=== PATIENT | male | born 1935 | race Caucasian/White ===

== ENCOUNTER → 2016-04-25 | Outpatient (REF) | payer OTHER ==
[~2016-04-25] MED LIST: ACET-654 PO; ALBU17IN INH; AMIO20TA FT; ASCO500T PO; ASPI325T PO; ATOR40TA PO; BREO1INH PO; CARA1TAB2 PO; CITA40TA4 PO; DOCU100C PO; FERR325T16 PO; FOLI1TAB2 PO; GLYB5TA PO; JANU100T PO; LISI10TA4 PO; METF500T PO; METO25TAB FT; PROTPAK PO; SPIR1CAP INH; TUMS500C PO; VITA100037 PO
[2016-04-25 19:10] LABS: MEAN CORPUSCULAR HEMOGLOBIN 31.5 pg (27.0-33.0); MEAN CORPUSCULAR VOLUME 92.6 fl (80.0-96.0); RED CELL DISTRIBUTION WIDTH 12.7 % (11.5-14.5); WHITE BLOOD COUNT 8.6 K/mm3 (4.0-10.0)
[2016-04-25 20:48] LABS: ALBUMIN 3.7 GM/DL (3.2-5.2); ALBUMIN/GLOBULIN RATIO 1.19 (1.00-1.93); ALKALINE PHOSPHATASE 89 U/L (45-117); ALT/SGPT 45 U/L (12-78); ANION GAP 6 MEQ/L (8-16); AST/SGOT 15 U/L (15-37); BILIRUBIN,TOTAL 0.5 MG/DL (0.2-1.0); BLOOD UREA NITROGEN 23 MG/DL (7-18); CALCIUM LEVEL 9.3 MG/DL (8.8-10.2); CARBON DIOXIDE LEVEL 32 MEQ/L (21-32); CHLORIDE LEVEL 105 MEQ/L (98-107); CREATININE FOR GFR 1.19 MG/DL (0.70-1.30); GLOMERULAR FILTRATION RATE > 60.0 (>42); GLUCOSE, FASTING 213 MG/DL (83-110); POTASSIUM SERUM 5.1 MEQ/L (3.5-5.1); SODIUM LEVEL 143 MEQ/L (136-145); TOTAL PROTEIN 6.8 GM/DL (6.4-8.2)
== END ==
LOC: M SFHCADAM 15:12
PROVIDERS: ATTEND Physician Assistant
DX: J44.9 Chronic obstructive pulmonary disease, unspecified (principal); E11.9 Type 2 diabetes mellitus without complications; Z23 Encounter for immunization
CPT/HCPCS: 80053; 83036; 85027; 90662; G0008; G0463

== ENCOUNTER → 2016-11-01 | Outpatient (REF) | payer OTHER ==
[~2016-11-01] MED LIST changes: -ACET-654 PO; +ACET1TAB17 PO; -ATOR40TA PO; +ATOR40TA75 PO; -CARA1TAB2 PO; +CARA1TAB6 PO; -DOCU100C PO; +DOCU100C16 PO; -FOLI1TAB2 PO; +FOLI1TAB4 PO; -METF500T PO; +METF500T13 PO; -VITA100037 PO; +VITA100067 PO
[2016-11-01 21:13] LABS: ALBUMIN 3.6 GM/DL (3.2-5.2); ALBUMIN/GLOBULIN RATIO 1.16 (1.00-1.93); ALKALINE PHOSPHATASE 83 U/L (45-117); ALT/SGPT 29 U/L (12-78); ANION GAP 8 MEQ/L (8-16); AST/SGOT 15 U/L (15-37); BILIRUBIN,TOTAL 0.6 MG/DL (0.2-1.0); BLOOD UREA NITROGEN 18 MG/DL (7-18); CALCIUM LEVEL 8.9 MG/DL (8.8-10.2); CARBON DIOXIDE LEVEL 28 MEQ/L (21-32); CHLORIDE LEVEL 103 MEQ/L (98-107); CREATININE FOR GFR 1.02 MG/DL (0.70-1.30); GLOMERULAR FILTRATION RATE > 60.0 (>35); GLUCOSE, FASTING 159 MG/DL (83-110); POTASSIUM SERUM 4.5 MEQ/L (3.5-5.1); SODIUM LEVEL 139 MEQ/L (136-145); TOTAL PROTEIN 6.7 GM/DL (6.4-8.2)
== END ==
LOC: M SFHCADAM 14:51
PROVIDERS: ATTEND Physician Assistant
DX: E11.9 Type 2 diabetes mellitus without complications (principal); I25.10 Atherosclerotic heart disease of native coronary artery without angina pectoris
CPT/HCPCS: 80053; 83036; G0463

== ENCOUNTER → 2017-02-28 | Outpatient (REF) | payer OTHER ==
[2017-02-28 19:58] LABS: MEAN CORPUSCULAR HEMOGLOBIN 31.1 pg (27.0-33.0); MEAN CORPUSCULAR VOLUME 94.3 fl (80.0-96.0); PLATELET COUNT, AUTOMATED 208 10^3/uL (150-450); RED CELL DISTRIBUTION WIDTH 13.1 % (11.5-14.5); WHITE BLOOD COUNT 10.8 10^3/uL (4.0-10.0)
[2017-02-28 20:23] LABS: ALBUMIN 3.7 GM/DL (3.2-5.2); ALBUMIN/GLOBULIN RATIO 1.06 (1.00-1.93); ALKALINE PHOSPHATASE 84 U/L (45-117); ALT/SGPT 36 U/L (12-78); ANION GAP 7 MEQ/L (8-16); AST/SGOT 17 U/L (7-37); BILIRUBIN,TOTAL 0.7 MG/DL (0.2-1.0); BLOOD UREA NITROGEN 18 MG/DL (7-18); CALCIUM LEVEL 9.3 MG/DL (8.8-10.2); CARBON DIOXIDE LEVEL 30 MEQ/L (21-32); CHLORIDE LEVEL 104 MEQ/L (98-107); CREATININE FOR GFR 1.16 MG/DL (0.70-1.30); GLOMERULAR FILTRATION RATE > 60.0 (>35); GLUCOSE, FASTING 163 MG/DL (83-110); POTASSIUM SERUM 5.1 MEQ/L (3.5-5.1); SODIUM LEVEL 141 MEQ/L (136-145); TOTAL PROTEIN 7.2 GM/DL (6.4-8.2)
== END ==
LOC: M SFHCADAM 16:35
PROVIDERS: ATTEND Physician Assistant
DX: E11.9 Type 2 diabetes mellitus without complications (principal); J44.9 Chronic obstructive pulmonary disease, unspecified
CPT/HCPCS: 80053; 83036; 85027; 90662; G0008

== ENCOUNTER → 2018-02-18 | Outpatient (REF) | payer OTHER ==
[2018-02-18 15:31] LABS: HEMATOCRIT 52.5 % (42.0-52.0); HEMOGLOBIN 17.3 g/dl (13.5-17.5); MEAN CORPUSCULAR HEMOGLOBIN 30.6 pg (27.0-33.0); MEAN CORPUSCULAR VOLUME 92.8 fl (80.0-96.0); PLATELET COUNT, AUTOMATED 204 10^3/uL (150-450); RED BLOOD COUNT 5.66 10^6/uL (4.30-6.10); RED CELL DISTRIBUTION WIDTH 13.4 % (11.5-14.5); WHITE BLOOD COUNT 9.9 10^3/uL (4.0-10.0)
[2018-02-18 15:47] LABS: ESTIMATED AVERAGE GLUCOSE 197 MG/DL (60-110); HEMOGLOBIN A1c 8.5 %
[2018-02-18 15:51] LABS: CHOLESTEROL LEVEL 101 MG/DL (<200); CHOLESTEROL RISK RATIO 2.148 (<5); FREE T4 1.11 NG/DL (0.76-1.46); HDL CHOLESTEROL 47 MG/DL (>40); LDL CHOLESTEROL 34 MG/DL (<100); NON-HDL-C 54 MG/DL; TRIGLYCERIDES LEVEL 102 MG/DL (<150)
[2018-02-18 15:52] LABS: VITAMIN B12 LEVEL 982 PG/ML (247-911)
[2018-02-18 15:53] LABS: FOLATE 11.7 NG/ML (>5.4)
== END ==
LOC: M SFHCADAM 13:30
DX: I25.10 Atherosclerotic heart disease of native coronary artery without angina pectoris (principal); F03.90 Unspecified dementia, unspecified severity, without behavioral disturbance, psychotic disturbance, mood disturbance, and anxiety; R41.3 Other amnesia; E11.9 Type 2 diabetes mellitus without complications; E78.5 Hyperlipidemia, unspecified; Z23 Encounter for immunization
CPT/HCPCS: 82746

== ENCOUNTER → 2018-10-02 | Outpatient (REF) | payer MEDICARE ==
[~2018-10-02] MED LIST changes: -ACET1TAB17 PO; +ACET1TAB55 PO; +AMIO200T22 FT; -AMIO20TA FT; +ASPI-1 PO; -ASPI325T PO; +FOLI1TAB11 PO; -FOLI1TAB4 PO; +GLYB-147 PO; -GLYB5TA PO; +METO1TAB63 FT; -METO25TAB FT
[2018-10-02 19:25] LABS: ALBUMIN 3.4 GM/DL (3.2-5.2); ALT/SGPT 33 U/L (12-78); BILIRUBIN,TOTAL 0.9 MG/DL (0.2-1.0); BLOOD UREA NITROGEN 27 MG/DL (7-18); CARBON DIOXIDE LEVEL 29 MEQ/L (21-32); CHLORIDE LEVEL 102 MEQ/L (98-107); CREATININE FOR GFR 1.22 MG/DL (0.70-1.30); GLOMERULAR FILTRATION RATE > 60.0 (>35); GLUCOSE, FASTING 284 MG/DL (70-100); POTASSIUM SERUM 4.7 MEQ/L (3.5-5.1); SODIUM LEVEL 139 MEQ/L (136-145); TOTAL PROTEIN 6.8 GM/DL (6.4-8.2)
[2018-10-02 19:26] LABS: HEMATOCRIT 46.7 % (42.0-52.0); HEMOGLOBIN 15.7 g/dl (13.5-17.5); MEAN CORPUSCULAR HEMOGLOBIN 30.8 pg (27.0-33.0); MEAN CORPUSCULAR HGB CONC 33.6 g/dl (32.0-36.5); MEAN CORPUSCULAR VOLUME 91.7 fl (80.0-96.0); PLATELET COUNT, AUTOMATED 194 10^3/uL (150-450); RED BLOOD COUNT 5.09 10^6/uL (4.30-6.10); WHITE BLOOD COUNT 10.9 10^3/uL (4.0-10.0)
[2018-10-02 19:59] LABS: HEMOGLOBIN A1c 11.8 %
== END ==
LOC: M SFHCADAM 14:25
PROVIDERS: ATTEND Physician Assistant
DX: E11.9 Type 2 diabetes mellitus without complications (principal); I25.10 Atherosclerotic heart disease of native coronary artery without angina pectoris; J44.9 Chronic obstructive pulmonary disease, unspecified; E78.49 Other hyperlipidemia
CPT/HCPCS: 80053; 83036; 85027; G0463

== ENCOUNTER 2019-10-01 21:10 | Emergency (ER) | payer MEDICARE ==
[~2019-10-01] VITALS: Ht 185.4 cm; Wt 82.3 kg
[2019-10-01] MEDS ORDERED: NS 500 ML IV ONE (21:45)
[2019-10-01 22:06] LABS: BASO % 0.3 % (0.0-1.0); EOS # 0.1 10^3/uL (0.0-0.5); EOS % 1.1 % (0.0-3.0); HEMATOCRIT 45.4 % (42.0-52.0); HEMOGLOBIN 15.4 g/dl (13.5-17.5); LYMPH % 32.2 % (24.0-44.0); MEAN CORPUSCULAR HGB CONC 33.9 g/dl (32.0-36.5); MEAN CORPUSCULAR VOLUME 91.5 fl (80.0-96.0); MONO # 0.9 10^3/uL (0.0-0.8); MONO % 10.1 % (0.0-5.0); NEUTROPHILS # 5.2 10^3/uL (1.5-8.5); NEUTROPHILS % 55.9 % (36.0-66.0); PLATELET COUNT, AUTOMATED 195 10^3/uL (150-450); RED BLOOD COUNT 4.96 10^6/uL (4.30-6.10); WHITE BLOOD COUNT 9.3 10^3/uL (4.0-10.0)
--- NOTE | 2019-10-01 22:19 | REPVR ---
PROCEDURE INFORMATION: Exam: CT Head Without Contrast Exam date and time: 10/01/2019 10:00 PM Age: 84 years old Clinical indication: Injury or trauma; Fall; Initial encounter; Blunt trauma (contusions or hematomas); Consciousness not specified; Additional info: [place] TECHNIQUE: Imaging protocol: Computed tomography of the head without contrast. Radiation optimization: All CT scans at this facility use at least one of these dose optimization techniques: automated exposure control; mA and/or kV adjustment per patient size (includes targeted exams where dose is matched to clinical indication); or iterative reconstruction. COMPARISON: MRI-Brain without Contrast 2015-05-30 10:44 FINDINGS: Brain: Diffuse moderate cerebral age related volume loss. Moderate patchy low attenuation in the white matter compatible with moderate chronic small vessel ischemic disease. No midline shift, mass, fluid collection, or evidence of hemorrhage. Ventricles: Ventricular enlargement proportional to volume loss. Bones/joints: Unremarkable. No acute fracture. Sinuses: Visualized sinuses are unremarkable. No fluid levels. Mastoid air cells: Visualized mastoid air cells are well aerated. Soft tissues: Unremarkable. IMPRESSION: Moderate involutional changes, no acute intracranial abnormality. Electronically signed by: Taz Reid On 10/01/2019 22:19:06 PM
[2019-10-01 22:28] LABS: CALCIUM LEVEL 8.7 MG/DL (8.8-10.2); CREATININE FOR GFR 1.24 MG/DL (0.70-1.30); GLOMERULAR FILTRATION RATE 59.3 (>35); POTASSIUM SERUM 4.5 MEQ/L (3.5-5.1)
[2019-10-01] MEDS ORDERED: HumuLIN R (REGULAR) INSULIN (NovoLIN R) **100U/ML** PER UNIT IV ONE (22:45)
[2019-10-02 00:15] VITALS: BP 130/64
[2019-10-02] MEDS ORDERED: HumuLIN R (REGULAR) INSULIN (NovoLIN R) **100U/ML** PER UNIT IV ONE (00:45)
--- NOTE | 2019-10-02 06:10 | REP ---
Clinical: Cough . Comparison: 11/24/2014 . Findings: The mediastinum and cardiac silhouette are stable and within normal limits for portable technique. Evidence of prior sternotomy and CABG. The lung perez are clear without acute consolidation, effusion, or pneumothorax. Skeletal structures are intact. Impression: No acute cardiopulmonary process appreciated. Electronically Signed by Nicolas Peralta MD 10/02/2019 06:01 A
[2019-10-02] MEDS ORDERED: D31000TA2 PO (22:13)
[2019-10-02] MEDS ORDERED: ECOT325T5 PO (22:13)
[2019-10-02] MEDS ORDERED: PROT1TAB2 PO (22:13)
[2020-02-18] MEDS ORDERED: INSUHUMDS SC (15:50)
[2020-02-18] MEDS ORDERED: QUET1TAB7 PO (15:50)
[2020-02-18] MEDS ORDERED: CITA10TA5 PO (15:58)
[2020-02-18] MEDS ORDERED: ASPI81CH33 PO (15:58)
[2020-02-18] MEDS ORDERED: VITMTA PO (16:07)
[2020-02-18] MEDS ORDERED: K-TA10TA PO (16:07)
[2020-02-18] MEDS ORDERED: JUVEPOW4 PO (16:07)
[2020-02-18] MEDS ORDERED: FLOM0.4C39 PO (16:09)
[2020-02-18] MEDS ORDERED: REME15TA PO (16:14)
[2020-02-18] MEDS ORDERED: MOM30SS PO (16:17)
[2020-02-18] MEDS ORDERED: BISA10SU27 PR (16:17)
[2020-02-18] MEDS ORDERED: FLEEENE12 PR (16:17)
== END 2019-10-02 01:55 | disposition home or self-care (01) ==
LOC: M ED 21:10
DX: E11.65 Type 2 diabetes mellitus with hyperglycemia (principal); E86.0 Dehydration; F03.90 Unspecified dementia, unspecified severity, without behavioral disturbance, psychotic disturbance, mood disturbance, and anxiety; I10 Essential (primary) hypertension; J44.9 Chronic obstructive pulmonary disease, unspecified; D64.9 Anemia, unspecified; E78.5 Hyperlipidemia, unspecified; I25.10 Atherosclerotic heart disease of native coronary artery without angina pectoris; Z79.899 Other long term (current) drug therapy; Z79.84 Long term (current) use of oral hypoglycemic drugs; Z79.82 Long term (current) use of aspirin; F17.210 Nicotine dependence, cigarettes, uncomplicated

== ENCOUNTER 2019-10-02 18:25 | Observation (INO) | payer MEDICARE ==
[~2019-10-02] VITALS: Ht 182.9 cm; Wt 73.4 kg
[2019-10-02 19:10] LABS: BASO % 0.2 % (0.0-1.0); EOS % 0.1 % (0.0-3.0); HEMATOCRIT 43.9 % (42.0-52.0); HEMOGLOBIN 14.9 g/dl (13.5-17.5); LYMPH # 1.5 10^3/uL (1.5-5.0); LYMPH % 9.2 % (24.0-44.0); MEAN CORPUSCULAR HEMOGLOBIN 30.7 pg (27.0-33.0); MEAN CORPUSCULAR HGB CONC 33.9 g/dl (32.0-36.5); MEAN CORPUSCULAR VOLUME 90.5 fl (80.0-96.0); MONO # 1.5 10^3/uL (0.0-0.8); MONO % 9.2 % (0.0-5.0); NEUTROPHILS % 80.9 % (36.0-66.0); PLATELET COUNT, AUTOMATED 172 10^3/uL (150-450); RED BLOOD COUNT 4.85 10^6/uL (4.30-6.10); WHITE BLOOD COUNT 16.1 10^3/uL (4.0-10.0)
[2019-10-02 19:21] LABS: INR 1.15; PROTHROMBIN TIME 14.4 SECONDS (11.8-14.0)
[2019-10-02 19:22] LABS: PARTIAL THROMBOPLASTIN TIME 31.6 SECONDS (25.0-38.4)
[2019-10-02 19:35] LABS: BILIRUBIN,DIRECT 0.3 MG/DL (0.0-0.2); BILIRUBIN,TOTAL 0.9 MG/DL (0.2-1.0)
[2019-10-02] MEDS: NS 1,000 ML IV SCH (19:39)
--- NOTE | 2019-10-02 19:40 | REP ---
Portable chest x-ray: Single view. History: Cough. Comparison chest x-ray: October 01, 2019. Findings: Prior median sternotomy wires seen. Monitoring electrodes are noted. Heart size is borderline unchanged. The patient is rotated somewhat to the right. The lungs are symmetrically aerated and no infiltrate is seen. The pleural angles are sharp. Pulmonary vasculature is not increased. Impression: Prior sternotomy. Borderline heart size. Otherwise no acute disease. Electronically Signed by Bruno Vasquez MD 10/02/2019 07:30 P
[2019-10-02] MEDS ORDERED: ATORVASTATIN 20 MG TAB PO SCH (21:00)
[2019-10-02] MEDS ORDERED: ECOT325T5 PO (22:13)
[2019-10-02] MEDS ORDERED: VITAD1000T PO (22:13)
[2019-10-02] MEDS ORDERED: PROT1TAB2 PO (22:13)
[2019-10-03] MEDS ORDERED: GLUCAGON INJ 1MG VIAL SC PRN (01:00)
[2019-10-03] MEDS ORDERED: DEXTROSE 50% 50 ML SYRINGE IV PRN (01:00)
[2019-10-03] MEDS ORDERED: ACETAMINOPHEN 325 MG TAB PO PRN (01:00)
[2019-10-03] MEDS ORDERED: GLUCOSE 4GM CHEW TABLET PO PRN (01:00)
[2019-10-03] MEDS ORDERED: DOCUSATE SODIUM 100 MG CAP PO PRN (01:00)
--- NOTE | 2019-10-03 01:49 | HPEPDOC ---
[facility] Medical History & Physical Date of Admission Oct 03, 2019 Date of Service: Oct 03, 2019 Primary Care Physician: IRAIS HUGHES PA-C Attending Physician: NAHOMI DUARTE DO History and Physical CHIEF COMPLAINT: GI bleed HISTORY OF PRESENT ILLNESS: Per ED records, apparently the patient was brought in after noticing "dark red stool today after BM. Denies pain. BP was 76 systolic but increased to 116 after 250 mL. Patient at baseline mentally and hard of hearing. Patient has dementia." Also, he was brought in yesterday to the emergency department for evaluation of incoordination, and apparently he has "not been himself for the past few weeks". CT scan of the time was unremarkable. Patient has a documented history of dementia, he is able to tell me his name, but otherwise does not provide any other useful information. Apparently, per ED staff the patient has been suffering from weakness and has had multiple falls. No family was available at that time that I came to see and evaluate the patient. The remainder of his medical record was found in [facility], his last visit being almost precisely one year ago on 10/02/2018 with his PCP MUMTAZ Pardo ALLERGIES: NSAIDs-GI bleed 11/27 Briel that-bed taste in his mouth Spurrier HandiHaler-bed taste in his mouth CODE STATUS: DNR/and trial of intubation PAST MEDICAL HISTORY: Diabetes mellitus type 2 Hypertension Hyperlipidemia Tobacco abuse-60+ pack years, quit in 2014 CAD status post CABG X2 2014 WEATHERS to LAD, SVG to obtuse marginal artery A. 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 Otherwise he really does not respond to questioning. He does not appear to be in any acute distress. He does not know where he is, or why he is here, or how he got here. HEENT: Head normocephalic atraumatic, conjunctiva are pink, sclera are nonicteric, buccal mucosa is pink and moist with no lesions in the oropharynx. He is somewhat hard of hearing. Respiratory: Clear to auscultation bilaterally with no wheezes, rales, or rhonchi. Cardiovascular: Regular rate and rhythm, with no rubs, gallops, or murmur. Abdomen: Soft, nontender, nondistended, no hepatosplenomegaly appreciated. Bowel sounds present. Extremities: 2+ pulses in the radial and dorsalis pedis bilaterally. No evidence of clubbing or cyanosis. ELECTROCARDIOGRAM: Performed in the ED, unremarkable IMAGING: CT of the head without contrast performed 10/01/2019 shows moderate involutional changes, no acute intracranial abnormality 2 chest x-rays performed on 10/02/19 - both unremarkable ASSESSMENT: Suspicion for lower GI bleed PLAN: Vital signs are stable. H/H stable. Has not had another BM yet. Patient does appear to be at baseline at this time. Admit to [facility] for observation. Clear liquid diet. Hold aspirin. Otherwise continue the remainder of his home medications. Vital Signs Vital Signs Date Time Temp Pulse Resp B/P (MAP) Pulse Ox O2 Delivery O2 Flow Rate FiO2 10/03/19 01:15 61 152/67 (95) 99 10/02/19 18:50 Room Air 10/02/19 18:36 99.6 18 Laboratory Data Labs 24H Laboratory Tests 2 10/02/19 18:57: Immature Granulocyte % (Auto) 0.4, Neutrophils (%) (Auto) 80.9H, Lymphocytes (%) (Auto) 9.2L, Monocytes (%) (Auto) 9.2H, Eosinophils (%) (Auto) 0.1, Basophils (%) (Auto) 0.2, Neutrophils # (Auto) 13.0H, Lymphocytes # (Auto) 1.5, Monocytes # (Auto) 1.5H, Eosinophils # (Auto) 0.0, Basophils # (Auto) 0.0, Nucleated Red Blood Cells % (auto) 0.0, Prothrombin Time 14.4H, Prothromb Time International Ratio 1.15, Activated Partial Thromboplast Time 31.6, Total Bilirubin 0.9, Direct Bilirubin 0.3H, Aspartate Amino Transf (AST/SGOT) 61H, Alanine Aminotrans ferase (ALT/SGPT) 78, Alkaline Phosphatase 97, Total Protein 6.0L, Albumin 3.0L, Albumin/Globulin Ratio 1.0, Lipase 105 10/02/19 19:36: POC Glucose (Misc Panel) 286H, POC Sodium (Misc Panel) 136, POC Potassium (Misc Panel) 4.1, POC Chloride (Misc Panel) 100, POC Total CO2 (Misc Panel) 21.0L, POC Blood Urea Nitrogen (Misc Panel 27H, POC Ionized Calcium (Misc Panel) 4.2L, POC Creatinine (Misc Panel) 0.9, POC Hematocrit (Misc Panel) 53.0H 10/02/19 21:13: Urine Color YELLOW, Urine Appearance CLEAR, Urine pH 5.0, Urine Specific [place] 1.025, Urine Protein NEGATIVE, Urine Glucose (UA) 3+H, Urine Ketones TRACEH, Urine Blood NEGATIVE, Urine Nitrite NEGATIVE, Urine Bilirubin NEGATIVE, Urine Urobilinogen 0.2, Urine Leukocyte Esterase NEGATIVE, Urine WBC (Auto) 0, Urine RBC (Auto) 0, Urine Hyaline Casts (Auto) 0, Urine Bacteria (Auto) NEGATIVE, Urine Squamous Epithelial Cells 0, Urine Sperm (Auto) CBC/BMP Laboratory Tests 10/02/19 18:57 Home Medications Scheduled Ascorbic Acid (Ascorbic Acid) 500 Mg Tab, 500 MG PO DAILY Aspirin (Ecotrin) 325 Mg Tablet.dr, 325 MG PO DAILY Atorvastatin Calcium (Atorvastatin Calcium) 40 Mg Tab, 40 MG PO QHS Cholecalciferol (Vitamin D3) (Vitamin D3) 1,000 Unit Tablet, 1,000 UNITS PO DAILY Citalopram Hydrobromide (Citalopram HBr) 40 Mg Tab, 40 MG PO DAILY Ferrous Gluconate (Ferrous Gluconate) 324 Mg Tab, 324 MG PO DAILY Lisinopril (Lisinopril) 10 Mg Tab, 10 MG PO DAILY Metformin HCl (Metformin HCl) 500 Mg Tab, 2,000 MG PO QPM with evening meal Pantoprazole Sodium (Protonix) 40 Mg Tablet.dr, 40 MG PO DAILY Sitagliptin Phosphate (Januvia) 100 Mg Tab, 100 MG PO DAILY Scheduled PRN Acetaminophen (Acetaminophen) 325 Mg Tab, 325 MG PO PRN PRN for PAIN Docusate Sodium (Docusate Sodium) 100 Mg Cap, 100 MG PO QPM PRN for CONSTIPATION Allergies Coded Allergies: No Known Allergies (Unverified , 11/22/14) A-FIB/CHADSVASC A-FIB History Current/History of A-Fib/PAF?: No NAHOMI DUARTE DO Oct 03, 2019 01:49
[2019-10-03 01:50] VITALS: BP 141/62
[2019-10-03 06:00] VITALS: BP 122/84
[2019-10-03 06:41] LABS: HEMATOCRIT 44.3 % (42.0-52.0); HEMOGLOBIN 15.1 g/dl (13.5-17.5); MEAN CORPUSCULAR HEMOGLOBIN 30.9 pg (27.0-33.0); MEAN CORPUSCULAR HGB CONC 34.1 g/dl (32.0-36.5); MEAN CORPUSCULAR VOLUME 90.8 fl (80.0-96.0); PLATELET COUNT, AUTOMATED 173 10^3/uL (150-450); RED BLOOD COUNT 4.88 10^6/uL (4.30-6.10)
[2019-10-03 06:48] LABS: INR 1.22; PROTHROMBIN TIME 15.1 SECONDS (11.8-14.0)
[2019-10-03 06:49] LABS: PARTIAL THROMBOPLASTIN TIME 33.9 SECONDS (25.0-38.4)
[2019-10-03 07:08] LABS: ALBUMIN 2.9 GM/DL (3.2-5.2); ALT/SGPT 64 U/L (12-78); BILIRUBIN,TOTAL 1.2 MG/DL (0.2-1.0); BLOOD UREA NITROGEN 19 MG/DL (7-18); CALCIUM LEVEL 8.3 MG/DL (8.8-10.2); CARBON DIOXIDE LEVEL 26 MEQ/L (21-32); CHLORIDE LEVEL 108 MEQ/L (98-107); CREATININE FOR GFR 0.95 MG/DL (0.70-1.30); GLOMERULAR FILTRATION RATE > 60.0 (>35); GLUCOSE, FASTING 225 MG/DL (70-100); MAGNESIUM LEVEL 1.8 MG/DL (1.8-2.4); POTASSIUM SERUM 4.2 MEQ/L (3.5-5.1); SODIUM LEVEL 141 MEQ/L (136-145); THYROID STIMULATING HORMONE 0.769 uIU/ML (0.358-3.740)
--- NOTE | 2019-10-03 08:10 | ECGEPIP ---
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
[2019-10-03] MEDS ORDERED: FERROUS GLUCONATE 324 MG TAB PO SCH (09:00)
[2019-10-03] MEDS ORDERED: lisinopriL 10 MG TAB PO SCH (09:00)
[2019-10-03] MEDS ORDERED: CitaloPRAM (CeleXA) 20 MG TAB PO SCH (09:00)
[2019-10-03] MEDS ORDERED: ASPIRIN ENTERIC 325 MG TAB PO SCH (09:00)
[2019-10-03] MEDS ORDERED: VITAMIN D 1,000 INTERNATIONAL UNITS TABLET PO SCH (09:00)
[2019-10-03] MEDS ORDERED: PANTOPRAZOLE 40MG TAB (PROTONIX) PO SCH (09:00)
[2019-10-03] MEDS: NS 1,000 ML IV SCH (10:21)
[2019-10-03] MEDS: HumaLOG INSULIN (NovoLOG) PER UNIT SC SCH ×2 (10:21→13:11)
[2019-10-03 10:22] VITALS: BP 122/84
[2019-10-03 10:57] LABS: HEMATOCRIT 44.1 % (42.0-52.0); HEMOGLOBIN 15.2 g/dl (13.5-17.5)
--- NOTE | 2019-10-03 12:09 | DS.PDOC ---
Discharge Summary General Date of Admission Oct 02, 2019 at 18:26 Date of Discharge 10/03/2019 Discharge Summary PROCEDURES PERFORMED DURING STAY: [None]. ADMITTING DIAGNOSES / DISCHARGE DIAGNOSES: Suspected blood in stool / urine, no anemia, no transfusions Dementia, CAD s/p CABG (2014) A. fib HTN DLP Hx of CVA (2015) Tobacco abuse COPD Hx of Duodenal Ulcers DVT prophylaxis COMPLICATIONS/CHIEF COMPLAINT: Suspected bleed GI / Urine HISTORY OF PRESENT ILLNESS / HOSPITAL COURSE: Patient is an 84-year-old male with a PMHx of Dementia, CAD s/p CABG (2014), A. fib, HTN, DLP, Hx of CVA (2016), Tobacco abuse, COPD, Hx of Duodenal Ulcers who was brought to the hospital by Ambulance because of reported dark stools. On arrival patient was found to have low blood pressure and was given IV fluid hydration. Upon arrival, patient's hemoglobin was noted to 14.9. Patient was admitted to hospitalist service under observation status. Patient's hemoglobin was trended and had remained stable. He remained hemodynamically stable throughout the remainder of the hospitalization. Patient's urine analysis did not reveal any evidence of bleeding, no evidence of gross or microhematuria. Physical therapy has worked with patient and has been cleared for discharge home. I discussed the case with patient's daughter in-law. Patient has been advised to follow-up with his primary care provider within the next 7 days. DISCHARGE MEDICATIONS: Please see below. ALLERGIES: Please see below. PHYSICAL EXAMINATION ON DISCHARGE: Vitals (See below) General: Lying in bed, no acute distress, comfortable, Awake / Alert, Oriented to Person HEENT: NC, AT CVS: +S1S2 Lungs: Fair air entry b/l, no appreciable wheezing / rhonchi / rales Abdomen: Soft, non-distended, non-tender Extremities: - Edema, - Calf tenderness LABORATORY DATA: Please see below. ACTIVITY: [As tolerated]. DISCHARGE PLAN: Follow up with Dr. Patrick within 7 days Remain compliant with treatment plan and medications Return to the ER if you experience any problems DISPOSITION: Home with services DISCHARGE CONDITION: [Stable]. TIME SPENT ON DISCHARGE: 20 minutes. Vital Signs/I&Os Vital Signs Date Time Temp Pulse Resp B/P (MAP) Pulse Ox O2 Delivery O2 Flow Rate FiO2 10/03/19 10:22 122/84 10/03/19 06:00 98.2 51 16 94 Room Air I&O- Last 24 Hours up to 6 AM 10/03/19 06:00 Intake Total 950 ml Output Total 725 ml Balance 225 ml Laboratory Data Labs 24H Laboratory Tests 2 10/02/19 18:57: Immature Granulocyte % (Auto) 0.4, Neutrophils (%) (Auto) 80.9H, Lymphocytes (%) (Auto) 9.2L, Monocytes (%) (Auto) 9.2H, Eosinophils (%) (Auto) 0.1, Basophils (%) (Auto) 0.2, Neutrophils # (Auto) 13.0H, Lymphocytes # (Auto) 1.5, Monocytes # (Auto) 1.5H, Eosinophils # (Auto) 0.0, Basophils # (Auto) 0.0, Nucleated Red Blood Cells % (auto) 0.0, Prothrombin Time 14.4H, Prothromb Time International Ratio 1.15, Activated Partial Thromboplast Time 31.6, Total Bilirubin 0.9, Direct Bilirubin 0.3H, Aspartate Amino Transf (AST/SGOT) 61H, Alanine Aminotransferase (ALT/SGPT) 78, Alkaline Phosphatase 97, Total Protein 6.0L, Albumin 3.0L, Albumin/Globulin Ratio 1.0, Lipase 105 10/02/19 19:36: POC Glucose (Misc Panel) 286H, POC Sodium (Misc Panel) 136, POC Potassium (Misc Panel) 4.1, POC Chloride (Misc Panel) 100, POC Total CO2 (Misc Panel) 21.0L, POC Blood Urea Nitrogen (Misc Panel 27H, POC Ionized Calcium (Misc Panel) 4.2L, POC Creatinine (Misc Panel) 0.9, POC Hematocrit (Misc Panel) 53.0H 10/02/19 21:13: Urine Color YELLOW, Urine Appearance CLEAR, Urine pH 5.0, Urine Specific [place] 1.025, Urine Protein NEGATIVE, Urine Glucose (UA) 3+H, Urine Ketones TRACEH, Urine Blood NEGATIVE, Urine Nitrite NEGATIVE, Urine Bilirubin NEGATIVE, Urine Urobilinogen 0.2, Urine Leukocyte Esterase NEGATIVE, Urine WBC (Auto) 0, Urine RBC (Auto) 0, Urine Hyaline Casts (Auto) 0, Urine Bacteria (Auto) NEGATIVE, Urine Squamous Epithelial Cells 0, Urine Sperm (Auto) 10/03/19 06:18: Nucleated Red Blood Cells % (auto) 0.0, Prothrombin Time 15.1H, Prothromb Time International Ratio 1.22, Activated Partial Thromboplast Time 33.9, Total Bilirubin 1.2H, Aspartate Amino Transf (AST/SGOT) 30, Alanine Aminotransferase (ALT/SGPT) 64, Alkaline Phosphatase 97, Total Protein 6.0L, Albumin 2.9L, Albumin/Globulin Ratio 0.9, Anion Gap 7L, Glomerular Filtration Rate > 60.0, Calcium Level 8.3L, Magnesium Level 1.8, Ammonia < 10, Thyroid Stimulating Hormone (TSH) 0.769 CBC/BMP Laboratory Tests 10/02/19 18:57 10/03/19 06:18 10/03/19 10:42 Discharge Medications Scheduled Ascorbic Acid (Ascorbic Acid) 500 Mg Tab, 500 MG PO DAILY, (Reported) Aspirin (Ecotrin) 325 Mg Tablet.dr, 325 MG PO DAILY, (Reported) Atorvastatin Calcium (Atorvastatin Calcium) 40 Mg Tab, 40 MG PO QHS, (Reported) Cholecalciferol (Vitamin D3) (Vitamin D3) 1,000 Unit Tablet, 1,000 UNITS PO DAILY, (Reported) Citalopram Hydrobromide (Citalopram HBr) 40 Mg Tab, 40 MG PO DAILY, (Reported) Ferrous Gluconate (Ferrous Gluconate) 324 Mg Tab, 324 MG PO DAILY, (Reported) Lisinopril (Lisinopril) 10 Mg Tab, 10 MG PO DAILY, (Reported) Metformin HCl (Metformin HCl) 500 Mg Tab, 2,000 MG PO QPM, (Reported) with evening meal Pantoprazole Sodium (Protonix) 40 Mg Tablet.dr, 40 MG PO DAILY, (Reported) Sitagliptin Phosphate (Januvia) 100 Mg Tab, 100 MG PO DAILY, (Reported) Scheduled PRN Acetaminophen (Acetaminophen) 325 Mg Tab, 325 MG PO PRN PRN for PAIN, (Reported) Docusate Sodium (Docusate Sodium) 100 Mg Cap, 100 MG PO QPM PRN for CONS TIPATION, (Reported) Allergies Coded Allergies: No Known Allergies (Unverified , 11/22/14) DWAIN JUARES MD Oct 03, 2019 12:09
[2019-10-03 14:00] VITALS: BP 139/64
[2019-10-03] MEDS ORDERED: HumaLOG INSULIN (NovoLOG) PER UNIT SC SCH (21:00)
== END 2019-10-03 17:46 | disposition home or self-care (01) ==
LOC: M ED 18:25 → EDBD 18:25 → M ED INP 18:26 → ENRESERV 10-03 01:21 → M MSPAV 10-03 01:41
PROVIDERS: ADMIT Neuromusculoskeletal Medicine & OMM; ATTEND Internal Medicine
DX: K62.5 Hemorrhage of anus and rectum (principal); F03.90 Unspecified dementia, unspecified severity, without behavioral disturbance, psychotic disturbance, mood disturbance, and anxiety; I25.10 Atherosclerotic heart disease of native coronary artery without angina pectoris; Z95.1 Presence of aortocoronary bypass graft; I48.91 Unspecified atrial fibrillation; I11.9 Hypertensive heart disease without heart failure; Z86.73 Personal history of transient ischemic attack (TIA), and cerebral infarction without residual deficits; J44.9 Chronic obstructive pulmonary disease, unspecified; Z87.19 Personal history of other diseases of the digestive system; E11.65 Type 2 diabetes mellitus with hyperglycemia; I95.9 Hypotension, unspecified; R53.1 Weakness; Z91.81 History of falling; E86.0 Dehydration; E78.5 Hyperlipidemia, unspecified; I67.82 Cerebral ischemia; H91.93 Unspecified hearing loss, bilateral; Z87.891 Personal history of nicotine dependence; Z79.899 Other long term (current) drug therapy; Z79.82 Long term (current) use of aspirin; Z79.84 Long term (current) use of oral hypoglycemic drugs
CPT/HCPCS: 36415; 71045; 80047; 80053; 80076; 81001; 82140; 83690; 83735; 84443; 85014; 85018; 85025; 85027; 85610; 85730; 86850; 86900; 86901; 93005; 93041; 96360; 96361; 96372; 97161; 99285; G0378

== ENCOUNTER → 2019-10-07 | Outpatient (REF) | payer MEDICARE ==
[~2019-10-07] MED LIST changes: +ECOT325T5 PO; +PROT1TAB2 PO; +VITAD1000T PO
[2019-10-07 17:23] LABS: BLOOD UREA NITROGEN 14 MG/DL (7-18); CALCIUM LEVEL 9.1 MG/DL (8.8-10.2); CARBON DIOXIDE LEVEL 28 MEQ/L (21-32); CHLORIDE LEVEL 106 MEQ/L (98-107); CREATININE FOR GFR 0.98 MG/DL (0.70-1.30); GLOMERULAR FILTRATION RATE > 60.0 (>35); GLUCOSE, FASTING 217 MG/DL (70-100); POTASSIUM SERUM 4.1 MEQ/L (3.5-5.1); SODIUM LEVEL 139 MEQ/L (136-145)
[2019-10-07 17:42] LABS: HEMOGLOBIN A1c 11.7 %
== END ==
LOC: M SFHCADAM 13:53
PROVIDERS: ATTEND Physician Assistant
DX: E11.65 Type 2 diabetes mellitus with hyperglycemia (principal); I11.0 Hypertensive heart disease with heart failure

== ENCOUNTER 2019-12-02 19:19 | Inpatient (IN) | payer MEDICARE ==
[~2019-12-02] VITALS: Ht 180.3 cm; Wt 77.7 kg
[~2019-12-02 19:19] MED LIST changes: +D31000TA2 PO; -VITAD1000T PO
--- NOTE | 2019-12-02 20:44 | REPVR ---
PROCEDURE INFORMATION: Exam: CT Head Without Contrast Exam date and time: 12/02/2019 8:40 PM Age: 84 years old Clinical indication: Injury or trauma; Fall; Initial encounter; Blunt trauma (contusions or hematomas) TECHNIQUE: Imaging protocol: Computed tomography of the head without contrast. Radiation optimization: All CT scans at this facility use at least one of these dose optimization techniques: automated exposure control; mA and/or kV adjustment per patient size (includes targeted exams where dose is matched to clinical indication); or iterative reconstruction. COMPARISON: CT Head without contrast 10/01/2019 9:51 PM FINDINGS: Brain: There is moderate age related parenchymal volume loss. White matter changes are demonstrated in the subcortical, centrum semiovale and periventricular white matter consistent with age related small vessel white matter angiopathic gliosis. Bilateral basal ganglia calcifications. Mild diffuse cerebellar atrophy. Ventricles: The degree of ventricular dilatation is normal for age and/or degree of atrophy present. Bones/joints: Unremarkable. No acute fracture. Sinuses: Visualized sinuses are unremarkable. No fluid levels. Mastoid air cells: Visualized mastoid air cells are well aerated. Vasculature: Atherosclerotic calcifications are demonstrated in the intracranial carotid arteries bilaterally as well as in the vertebral basilar system. Soft tissues: Unremarkable. IMPRESSION: 1. There is moderate age related parenchymal volume loss. White matter changes are demonstrated in the subcortical, centrum semiovale and periventricular white matter consistent with age related small vessel white matter angiopathic gliosis. 2. The degree of ventricular dilatation is normal for age and/or degree of atrophy present. 3. No acute intracranial findings. Electronically signed by: Johnny Byrne On 12/02/2019 20:45:06 PM
--- NOTE | 2019-12-02 20:52 | REPVR ---
PROCEDURE INFORMATION: Exam: CT Cervical Spine Without Contrast Exam date and time: 12/02/2019 8:40 PM Age: 84 years old Clinical indication: Injury or trauma; Fall; Initial encounter; Blunt trauma TECHNIQUE: Imaging protocol: Computed tomography images of the cervical spine without contrast. Radiation optimization: All CT scans at this facility use at least one of these dose optimization techniques: automated exposure control; mA and/or kV adjustment per patient size (includes targeted exams where dose is matched to clinical indication); or iterative reconstruction. COMPARISON: No relevant prior studies available. FINDINGS: Vertebrae: Moderate anterolisthesis of C7 on T1 may be a chronic finding although clinical correlation to exclude acute ligamentous injury suggested. Multilevel facet joint arthropathy. Discs/Spinal canal/Neural foramina: Disc space narrowing from C3-C4 through C6-C7. There are degenerative changes demonstrated in the atlantoaxial joint at C1-C2 with osteophytes and joint space narrowing. The transverse ligament is thickened. Moderate to severe bilateral foraminal stenosis at C3, C4, C5, C6 secondary to uncinate joint hypertrophic changes. Disc osteophyte complexes from C3-C4 through C6-C7 result in varying degrees of effacement of the ventral subarachnoid space with moderate cord impingement secondary to a prominent osteophyte at C5-C6 and C6-C7. Soft tissues: See "Discs/Spinal canal/Neural foramina" finding. Bilateral atherosclerotic changes in the carotid arteries. Lungs: Lung apices are normal. IMPRESSION: 1. Moderate anterolisthesis of C7 on T1 may be a chronic finding although clinical correlation to exclude acute ligamentous injury suggested. 2. Degenerative spondylosis. Multilevel bilateral foraminal stenosis secondary to uncinate joint hypertrophic changes. Disc osteophyte complexes result in moderate cord impingement at C5-C6 and C6-C7. Electronically signed by: Johnny Byrne On 12/02/2019 20:52:36 PM
[2019-12-02] MEDS ORDERED: LIDOCAINE 2% 5ML JELLY UROJET TOP ONE (21:45)
--- NOTE | 2019-12-02 21:57 | REPVR ---
PROCEDURE INFORMATION: Exam: XR Chest, 1 View Exam date and time: 12/02/2019 9:51 PM Age: 84 years old Clinical indication: Cough; Additional info: Weakness TECHNIQUE: Imaging protocol: XR of the chest Views: 1 view. COMPARISON: PA Chest, 1 view 10/02/2019 7:15 PM FINDINGS: Lungs: Unremarkable. No consolidation. Pleural space: Unremarkable. No pleural effusion. No pneumothorax. Heart/Mediastinum: There is mild cardiomegaly. Status post CABG. Bones/joints: Status post sternotomy. IMPRESSION: 1. There is mild cardiomegaly. 2. No acute findings. Electronically signed by: Johnny Byrne On 12/02/2019 21:56:58 PM
[2019-12-02 22:18] LABS: HEMATOCRIT 48.2 % (42.0-52.0); MEAN CORPUSCULAR HEMOGLOBIN 30.5 pg (27.0-33.0); MEAN CORPUSCULAR HGB CONC 33.2 g/dl (32.0-36.5); PLATELET COUNT, AUTOMATED 205 10^3/uL (150-450); RED BLOOD COUNT 5.24 10^6/uL (4.30-6.10); WHITE BLOOD COUNT 13.6 10^3/uL (4.0-10.0)
[2019-12-02 22:21] LABS: BILIRUBIN, URINE MANUAL NEGATIVE (NEGATIVE); GLUCOSE, URINE (UA) MANUAL 4+(1000 MG/DL) mg/dL (NEGATIVE); KETONE, URINE MANUAL NEGATIVE (NEGATIVE); UROBILINOGEN, URINE MANUAL NORMAL (NORMAL)
[2019-12-02 22:28] LABS: SQUAMOUS EPITHELIAL CELL URINE NONE SEEN /hpf (SMALL AMT)
[2019-12-02 22:29] LABS: BACTERIA, URINE NONE SEEN; HYALINE CAST, URINE NONE SEEN /lpf (0-1); MUCUS, URINE SMALL AMOUNT (NEGATIVE)
[2019-12-02 23:35] LABS: BLOOD UREA NITROGEN 22 MG/DL (7-18); CALCIUM LEVEL 8.6 MG/DL (8.8-10.2); CARBON DIOXIDE LEVEL 27 MEQ/L (21-32); CHLORIDE LEVEL 108 MEQ/L (98-107); CREATININE FOR GFR 0.94 MG/DL (0.70-1.30); GLOMERULAR FILTRATION RATE > 60.0 (>35); GLUCOSE, FASTING 151 MG/DL (70-100); POTASSIUM SERUM 3.9 MEQ/L (3.5-5.1); SODIUM LEVEL 141 MEQ/L (136-145)
[2019-12-03] MEDS ORDERED: ASPI325T47 PO (02:03)
[2019-12-03] MEDS ORDERED: FERR1TAB8 PO (02:03)
[2019-12-03] MEDS ORDERED: TRES100I SC (02:03)
[2019-12-03] MEDS ORDERED: LORazepam 2 MG TAB PO STA (02:11)
[2019-12-03] MEDS ORDERED: LORazepam 2 MG TAB PO ONE (02:30)
--- NOTE | 2019-12-03 02:48 | HPEPDOC ---
[facility] Medical History & Physical Date of Admission Dec 03, 2019 Date of Service: Dec 03, 2019 History and Physical CHIEF COMPLAINT: Recurrent falls HISTORY OF PRESENT ILLNESS: Patient is 84 year old male with severe dementia, history of recurrent falls, CAD, DM, HTN, COPD was brought into the ER due to recurrent falls with concern for home safety by family, reportedly also poor diabetes control. Patient himself is not aware of why he is here and does not say much, smile and oriented to his name only. Reports no to any complaints including any discomfort or having any problems. Unable to obtain any history of patient, all from previous records. PAST MEDICAL HISTORY: Refer to [facility] PAST SURGICAL HISTORY: CABG, cataract surgery SOCIAL HISTORY: Denies tobacco, alcohol or drugs. FAMILY HISTORY: Reviewed and unable to obtain ALLERGIES: Please see below. REVIEW OF SYSTEMS: 10 point ROS negative except as above HOME MEDICATIONS: Please see below. PHYSICAL EXAMINATION: VITAL SIGNS: Please see below. GENERAL: No distress HEENT: Normocephalic, atraumatic, moist mucous membranes NECK: Supple CARDIOVASCULAR EXAMINATION: Normal rate RESPIRATORY EXAMINATION: Clear to auscultation, no wheezing ABDOMINAL EXAMINATION: Soft, nontender, nondistended EXTREMITIES: Range of motion intact SKIN: No rash NEUROLOGICAL EXAMINATION: Alert and oriented 1, no focal deficits PSYCHIATRIC EXAMINATION: Calm and cooperative LABORATORY DATA: See below. IMAGING: CT head- 1. There is moderate age related parenchymal volume loss. White matter changes are demonstrated in the subcortical, centrum semiovale and periventricular white matter consistent with age related small vessel white matter angiopathic gliosis. 2. The degree of ventricular dilatation is normal for age and/or degree of atrophy present. 3. No acute intracranial findings. CT cervical spine- IMPRESSION: 1. Moderate anterolisthesis of C7 on T1 may be a chronic finding although clinical correlation to exclude acute ligamentous injury suggested. 2. Degenerative spondylosis. Multilevel bilateral foraminal stenosis secondary to uncinate joint hypertrophic changes. Disc osteophyte complexes result in moderate cord impingement at C5-C6 and C6-C7. MICROBIOLOGY: Please see below. ASSESSMENT AND PLAN: 1. Recurrent falls - dementia in setting of advance age. - PT eval. Patient reportedly unsafe at home. - Consult CM for possibly placement. 2. CAD - ASA, statin. 3. HTN - Bp uncontrolled. Resume home meds. - Uncertain about compliance. 4. DM - Januvia and metformin. On Tresiba 15 units daily at home, convert to Levemir. - consistent carbohydrate diet with ISS coverage. 5. COPD - Duonebs PRN DVT ppx: Lovenox, SCD Code status: Full code (no molst form seen, unable to get answer from patient) Vital Signs Vital Signs Date Time Temp Pulse Resp B/P (MAP) Pulse Ox O2 Delivery O2 Flow Rate FiO2 12/03/19 02:03 98.0 64 16 172/80 (110) 97 Room Air Laboratory Data Labs 24H Laboratory Tests 2 12/02/19 22:10: Nucleated Red Blood Cells % (auto) 0.0, Urine Color (RICK) LT YELLOW, Urine Appea kilo (RICK) CLEAR, Urine pH (RICK) 5.0, Urine Specific [place] (RICK) 1.020, Bedside Urine Glucose (UA) 4+(1000 MG/DL)H, Bedside Urine Ketones (LAB) NEGATIVE, Bedside Urine Blood TRACEH, Bedside Urine Nitrite (LAB) NEGATIVE, Bedside Urine Bilirubin (LAB) NEGATIVE, Bedside Urine Urobilinogen (LAB) NORMAL, Bedside Urine Leukocyte Esterase (L NEGATIVE, Urine Sediment Examination PERFORMED, Urine RBC 3-5H, Urine WBC 0-1, Urine Squamous Epithelial Cells NONE SEEN, Urine Bacteria NONE SEEN, Urine Hyaline Casts NONE SEEN, Urine Mucus SMALL AMOUNTH 12/02/19 22:35: Anion Gap 6L, Glomerular Filtration Rate > 60.0, Calcium Level 8.6L CBC/BMP Laboratory Tests 12/02/19 22:10 12/02/19 22:35 Home Medications Scheduled Ascorbic Acid (Ascorbic Acid) 500 Mg Tab, 500 MG PO DAILY Aspirin (Aspirin EC) 325 Mg Tablet.dr, 325 MG PO QHS Atorvastatin Calcium (Atorvastatin Calcium) 40 Mg Tab, 40 MG PO QHS Cholecalciferol (Vitamin D3) (Vitamin D3) 1,000 Unit Tablet, 1,000 UNITS PO DAILY Citalopram Hydrobromide (Citalopram HBr) 40 Mg Tab, 40 MG PO DAILY Ferrous Sulfate (Ferrous Sulfate) 325 Mg Tablet, 325 MG PO DAILY Insulin Degludec (Tresiba) 100 Unit/1 Ml Vial, 15 UNIT SC DAILY Lisinopril (Lisinopril) 10 Mg Tab, 10 MG PO DAILY Metformin HCl (Metformin HCl) 500 Mg Tab, 2,000 MG PO QPM TAKES WITH DINNER Pantoprazole Sodium (Protonix) 40 Mg Tablet.dr, 40 MG PO BID Sitagliptin Phosphate (Januvia) 100 Mg Tab, 100 MG PO DAILY Scheduled PRN Acetaminophen (Acetaminophen) 325 Mg Tab, 325 MG PO Q4H PRN for PAIN Docusate Sodium (Docusate Sodium) 100 Mg Cap, 100 MG PO DAILY PRN for CONSTIPATION Allergies Coded Allergies: No Known Allergies (Unverified , 11/22/14) A-FIB/CHADSVASC A-FIB History Current/History of A-Fib/PAF?: No MARCIANO LINDO MD Dec 03, 2019 02:48
[2019-12-03] MEDS ORDERED: GLUCOSE 4GM CHEW TABLET PO PRN (03:00)
[2019-12-03] MEDS ORDERED: DEXTROSE 50% 50 ML SYRINGE IV PRN (03:00)
[2019-12-03] MEDS ORDERED: GLUCAGON INJ 1MG VIAL SC PRN (03:00)
[2019-12-03] MEDS: LEVEMIR (INSULIN DETEMIR) 1 UNITS/0.01ML SC SCH (09:00)
[2019-12-03] MEDS ORDERED: SITagliptin 50 MG TAB (JANUVIA) PO SCH (09:00)
[2019-12-03] MEDS: lisinopriL 10 MG TAB PO SCH (09:00)
[2019-12-03 09:24] VITALS: BP 118/68
[2019-12-03] MEDS: HumaLOG INSULIN (NovoLOG) PER UNIT SC SCH ×4 (09:28→21:00)
[2019-12-03 14:00] VITALS: BP 132/75
[2019-12-03] MEDS: CitaloPRAM (CeleXA) 20 MG TAB PO SCH (14:36)
[2019-12-03] MEDS: PANTOPRAZOLE 40MG TAB (PROTONIX) PO SCH ×2 (14:36→23:32)
[2019-12-03] MEDS: FERROUS SULFATE 325MG TAB PO SCH (14:37)
[2019-12-03] MEDS: ASCORBIC ACID 500 MG TAB PO SCH (14:37)
[2019-12-03] MEDS: VITAMIN D 1,000 INTERNATIONAL UNITS TABLET PO SCH (14:37)
[2019-12-03] MEDS: amLODIPine 5 MG TAB PO SCH (14:38)
[2019-12-03] MEDS: ENOXAPARIN 30MG/0.3ML SYRINGE (J1650 PER 10MG) SC SCH (14:39)
[2019-12-03] MEDS ORDERED: metFORMIN (GLUCOPHAGE) 500 MG TAB PO SCH (18:00)
[2019-12-03 22:00] VITALS: BP 157/77
[2019-12-03] MEDS: ATORVASTATIN 20 MG TAB PO SCH (23:31)
[2019-12-03] MEDS: ASPIRIN ENTERIC 325 MG TAB PO SCH (23:32)
[2019-12-04 06:00] VITALS: BP 133/69
[2019-12-04] MEDS: HumaLOG INSULIN (NovoLOG) PER UNIT SC SCH ×4 (08:49→21:00)
[2019-12-04] MEDS: LEVEMIR (INSULIN DETEMIR) 1 UNITS/0.01ML SC SCH (08:49)
[2019-12-04] MEDS: ENOXAPARIN 30MG/0.3ML SYRINGE (J1650 PER 10MG) SC SCH (08:50)
[2019-12-04] MEDS: CitaloPRAM (CeleXA) 20 MG TAB PO SCH (08:50)
[2019-12-04] MEDS: ASCORBIC ACID 500 MG TAB PO SCH (08:50)
[2019-12-04] MEDS: PANTOPRAZOLE 40MG TAB (PROTONIX) PO SCH ×2 (08:50→20:14)
[2019-12-04] MEDS: VITAMIN D 1,000 INTERNATIONAL UNITS TABLET PO SCH (08:50)
[2019-12-04] MEDS: FERROUS SULFATE 325MG TAB PO SCH (08:50)
[2019-12-04] MEDS: lisinopriL 10 MG TAB PO SCH (08:51)
[2019-12-04] MEDS: amLODIPine 5 MG TAB PO SCH (08:58)
[2019-12-04 09:27] LABS: BASO % 0.4 % (0.0-1.0); EOS # 0.2 10^3/uL (0.0-0.5); EOS % 1.7 % (0.0-3.0); HEMATOCRIT 47.8 % (42.0-52.0); HEMOGLOBIN 16.1 g/dl (13.5-17.5); LYMPH # 2.6 10^3/uL (1.5-5.0); LYMPH % 23.3 % (24.0-44.0); MEAN CORPUSCULAR HEMOGLOBIN 30.5 pg (27.0-33.0); MEAN CORPUSCULAR HGB CONC 33.7 g/dl (32.0-36.5); MEAN CORPUSCULAR VOLUME 90.5 fl (80.0-96.0); MONO # 1.3 10^3/uL (0.0-0.8); MONO % 11.8 % (0.0-5.0); NEUTROPHILS % 62.4 % (36.0-66.0); PLATELET COUNT, AUTOMATED 191 10^3/uL (150-450); RED BLOOD COUNT 5.28 10^6/uL (4.30-6.10); WHITE BLOOD COUNT 11.1 10^3/uL (4.0-10.0)
[2019-12-04 09:58] LABS: BLOOD UREA NITROGEN 23 MG/DL (7-18); CARBON DIOXIDE LEVEL 28 MEQ/L (21-32); CHLORIDE LEVEL 108 MEQ/L (98-107); GLOMERULAR FILTRATION RATE > 60.0 (>35); GLUCOSE, FASTING 129 MG/DL (70-100); POTASSIUM SERUM 4.2 MEQ/L (3.5-5.1); SODIUM LEVEL 140 MEQ/L (136-145)
[2019-12-04 14:00] VITALS: BP 132/69
--- NOTE | 2019-12-04 15:45 | IPNPDOC ---
Subjective Date Seen The patient was seen on 12/04/19. Subjective Chief Complaint/HPI 84 y.o M with hx of dementia presenting for further assesment after sustaining a fall Events since last encounter resting in bed. lethargic on exam. a&o - 0 General: Reports: ROS Unobtainable (advanced dementia) Objective Physical Examination General Exam: Positive: Cooperative, No Acute Distress Eye Exam: Positive: Conjunctiva & lids normal ENT Exam: Positive: Atraumatic Neck Exam: Positive: Supple Chest Exam: Positive: Clear to auscultation, Normal air movement Heart Exam: Positive: Rate Normal Abdomen Exam: Positive: Normal bowel sounds, Soft Extremity Exam: Positive: Normal pulses Skin Exam: Positive: Nl turgor and temperature Psych Exam: Positive: Other (lethargic on AM exam; arousable but not very communicative) Assessment /Plan Assessment ASSESSMENT AND PLAN: 1. Leukocytosis: WBC trending down from 13.6-11.1 without interventions. no fever, SIRS negative. suspecting reactive leukemoid reaction more so than infectious process. UA and CXR reviewed - no infection. -blood cultures ordered -will consider infectious etiology if other systemic signs develop 2. Recurrent falls - dementia in setting of advance age. - will discuss placement options with CM team 3. CAD - ASA, statin. 4. HTN -resumed home meds 5. DM - on Levemir with consistent carbohydrate diet with ISS coverage. 6. COPD - Duonebs PRN DVT ppx: Lovenox, SCD Code status: Full cod Plan/VTE VTE Prophylaxis Ordered?: Yes Plan Diet: Continue Current Activity: Continue Current Therapy: PT, OT, Home Safety Eval Anticipated Discharge: Assisted Living VS, I&O, 24H, [facility] Vital Signs/I&O Vital Signs Date Time Temp Pulse Resp B/P (MAP) Pulse Ox O2 Delivery O2 Flow Rate FiO2 12/04/19 14:00 98.4 66 14 132/69 (90) 97 Room Air I&O- Last 24 Hours up to 6 AM 12/04/19 06:00 Intake Total 500 ml Output Total 0 ml Balance 500 ml Laboratory Data 24H LABS Laboratory Tests 2 12/04/19 09:00: Immature Granulocyte % (Auto) 0.4, Neutrophils (%) (Auto) 62.4, Lymphocytes (%) (Auto) 23.3L, Monocytes (%) (Auto) 11.8H, Eosinophils (%) (Auto) 1.7, Basophils (%) (Auto) 0.4, Neutrophils # (Auto) 7.0, Lymphocytes # (Auto) 2.6, Monocytes # (Auto) 1.3H, Eosinophils # (Auto) 0.2, Basophils # (Auto) 0.0, Nucleated Red Blood Cells % (auto) 0.0, Anion Gap 4L, Glomerular Filtration Rate > 60.0, Calcium Level 9.0 CBC/BMP Laboratory Tests 12/04/19 09:00 GARETH TOLENTINO DO Dec 04, 2019 15:45
[2019-12-04] MEDS: ASPIRIN ENTERIC 325 MG TAB PO SCH (20:14)
[2019-12-04] MEDS: ATORVASTATIN 20 MG TAB PO SCH (20:14)
[2019-12-04 22:00] VITALS: BP 142/70
[2019-12-05 06:00] VITALS: BP 147/64
[2019-12-05] MEDS: HumaLOG INSULIN (NovoLOG) PER UNIT SC SCH ×4 (07:30→21:00)
[2019-12-05] MEDS: LEVEMIR (INSULIN DETEMIR) 1 UNITS/0.01ML SC SCH (08:32)
[2019-12-05] MEDS: ENOXAPARIN 30MG/0.3ML SYRINGE (J1650 PER 10MG) SC SCH (08:33)
[2019-12-05] MEDS: ASCORBIC ACID 500 MG TAB PO SCH (12:17)
[2019-12-05] MEDS: PANTOPRAZOLE 40MG TAB (PROTONIX) PO SCH ×2 (12:17→20:28)
[2019-12-05] MEDS: CitaloPRAM (CeleXA) 20 MG TAB PO SCH (12:18)
[2019-12-05] MEDS: VITAMIN D 1,000 INTERNATIONAL UNITS TABLET PO SCH (12:18)
[2019-12-05] MEDS: DOCUSATE SODIUM 100 MG CAP PO PRN (12:18)
[2019-12-05] MEDS: FERROUS SULFATE 325MG TAB PO SCH (12:18)
[2019-12-05] MEDS: amLODIPine 5 MG TAB PO SCH (12:20)
[2019-12-05] MEDS: lisinopriL 10 MG TAB PO SCH (12:20)
[2019-12-05 14:00] VITALS: BP 133/67
[2019-12-05] MEDS: ASPIRIN ENTERIC 325 MG TAB PO SCH (20:28)
[2019-12-05] MEDS: ATORVASTATIN 20 MG TAB PO SCH (20:29)
[2019-12-05] MEDS ORDERED: NICOTINE 7 MG/24 HR TRANSDERMAL TD SCH (21:00)
[2019-12-06 06:00] VITALS: BP 126/64
[2019-12-06 06:43] LABS: BASO % 0.4 % (0.0-1.0); EOS # 0.1 10^3/uL (0.0-0.5); EOS % 1.3 % (0.0-3.0); HEMATOCRIT 44.7 % (42.0-52.0); HEMOGLOBIN 15.2 g/dl (13.5-17.5); LYMPH # 1.9 10^3/uL (1.5-5.0); LYMPH % 17.2 % (24.0-44.0); MEAN CORPUSCULAR HEMOGLOBIN 30.6 pg (27.0-33.0); MEAN CORPUSCULAR VOLUME 89.9 fl (80.0-96.0); MONO # 1.4 10^3/uL (0.0-0.8); MONO % 13.1 % (0.0-5.0); NEUTROPHILS # 7.3 10^3/uL (1.5-8.5); NEUTROPHILS % 67.6 % (36.0-66.0); PLATELET COUNT, AUTOMATED 190 10^3/uL (150-450); RED BLOOD COUNT 4.97 10^6/uL (4.30-6.10); WHITE BLOOD COUNT 10.8 10^3/uL (4.0-10.0)
[2019-12-06] MEDS: HumaLOG INSULIN (NovoLOG) PER UNIT SC SCH ×4 (07:19→20:17)
[2019-12-06] MEDS: LEVEMIR (INSULIN DETEMIR) 1 UNITS/0.01ML SC SCH (07:19)
[2019-12-06] MEDS ORDERED: NICOTINE 7 MG/24 HR TRANSDERMAL TD PRN (08:00)
[2019-12-06 08:36] VITALS: BP 134/63
[2019-12-06] MEDS: ENOXAPARIN 30MG/0.3ML SYRINGE (J1650 PER 10MG) SC SCH (08:37)
[2019-12-06] MEDS: FERROUS SULFATE 325MG TAB PO SCH (09:06)
[2019-12-06] MEDS: CitaloPRAM (CeleXA) 20 MG TAB PO SCH (09:06)
[2019-12-06] MEDS: VITAMIN D 1,000 INTERNATIONAL UNITS TABLET PO SCH (09:06)
[2019-12-06] MEDS: PANTOPRAZOLE 40MG TAB (PROTONIX) PO SCH ×2 (09:06→20:12)
[2019-12-06] MEDS: ASCORBIC ACID 500 MG TAB PO SCH (09:06)
[2019-12-06] MEDS: amLODIPine 5 MG TAB PO SCH (09:07)
[2019-12-06] MEDS: lisinopriL 10 MG TAB PO SCH (09:07)
[2019-12-06] MEDS: ATORVASTATIN 20 MG TAB PO SCH (20:12)
[2019-12-06] MEDS: ASPIRIN ENTERIC 325 MG TAB PO SCH (20:12)
[2019-12-06] MEDS: ACETAMINOPHEN TAB 650MG DOSE (2X325MG) PO PRN (20:13)
[2019-12-07 06:00] VITALS: BP 161/76
[2019-12-07] MEDS: HumaLOG INSULIN (NovoLOG) PER UNIT SC SCH ×4 (07:30→21:00)
[2019-12-07] MEDS: ENOXAPARIN 30MG/0.3ML SYRINGE (J1650 PER 10MG) SC SCH (09:00)
[2019-12-07 09:30] VITALS: BP 161/98
--- NOTE | 2019-12-07 09:59 | REPVR ---
PROCEDURE INFORMATION: Exam: CT Head Without Contrast Exam date and time: 12/07/2019 9:37 AM Age: 84 years old Clinical indication: Injury or trauma; Initial encounter; Blunt trauma (contusions or hematomas); Consciousness not specified; Additional info: Fall, on lovenox TECHNIQUE: Imaging protocol: Computed tomography of the head without contrast. Radiation optimization: All CT scans at this facility use at least one of these dose optimization techniques: automated exposure control; mA and/or kV adjustment per patient size (includes targeted exams where dose is matched to clinical indication); or iterative reconstruction. COMPARISON: CT Head without contrast 12/02/2019 8:27 PM FINDINGS: Brain: Lucencies in the white matter, most suggestive of chronic microvascular ischemic disease, do not appear significantly changed. There is no evidence for large acute cortical infarct. No intracranial hemorrhage or extraaxial collection is identified. There is no significant intracranial mass effect. Ventricles: The ventricles and sulci are stable in configuration, with similar atrophy. Bones/joints: Unremarkable. No acute fracture. Sinuses: Visualized sinuses are unremarkable. No fluid levels. Mastoid air cells: Visualized mastoid air cells are well aerated. Vasculature: Intracranial atherosclerotic vascular calcifications are again present. Soft tissues: Unremarkable. IMPRESSION: No CT evidence for acute intracranial abnormality or significant change since 12/02/19. Electronically signed by: Elder Paredes On 12/07/2019 09:59:51 AM
[2019-12-07 10:10] VITALS: BP 156/77
[2019-12-07 13:17] LABS: BASO % 0.2 % (0.0-1.0); EOS % 0.2 % (0.0-3.0); HEMOGLOBIN 16.7 g/dl (13.5-17.5); LYMPH # 1.7 10^3/uL (1.5-5.0); MEAN CORPUSCULAR HEMOGLOBIN 30.6 pg (27.0-33.0); MEAN CORPUSCULAR HGB CONC 33.4 g/dl (32.0-36.5); MEAN CORPUSCULAR VOLUME 91.6 fl (80.0-96.0); MONO # 1.3 10^3/uL (0.0-0.8); MONO % 9.7 % (0.0-5.0); NEUTROPHILS % 76.5 % (36.0-66.0); PLATELET COUNT, AUTOMATED 220 10^3/uL (150-450); RED BLOOD COUNT 5.46 10^6/uL (4.30-6.10); WHITE BLOOD COUNT 13.1 10^3/uL (4.0-10.0)
[2019-12-07] MEDS: ASCORBIC ACID 500 MG TAB PO SCH (13:34)
[2019-12-07] MEDS: FERROUS SULFATE 325MG TAB PO SCH (13:35)
[2019-12-07] MEDS: DOCUSATE SODIUM 100 MG CAP PO PRN (13:35)
[2019-12-07] MEDS: CitaloPRAM (CeleXA) 20 MG TAB PO SCH (13:35)
[2019-12-07] MEDS: amLODIPine 5 MG TAB PO SCH (13:36)
[2019-12-07] MEDS: VITAMIN D 1,000 INTERNATIONAL UNITS TABLET PO SCH (13:36)
[2019-12-07] MEDS: PANTOPRAZOLE 40MG TAB (PROTONIX) PO SCH ×2 (13:36→21:41)
[2019-12-07] MEDS: lisinopriL 10 MG TAB PO SCH (13:36)
[2019-12-07] MEDS: LEVEMIR (INSULIN DETEMIR) 1 UNITS/0.01ML SC SCH (13:37)
[2019-12-07 14:12] LABS: ALBUMIN 3.2 GM/DL (3.2-5.2); ALT/SGPT 27 U/L (12-78); BILIRUBIN,TOTAL 1.4 MG/DL (0.2-1.0); BLOOD UREA NITROGEN 15 MG/DL (7-18); CALCIUM LEVEL 9.1 MG/DL (8.8-10.2); CARBON DIOXIDE LEVEL 29 MEQ/L (21-32); CHLORIDE LEVEL 103 MEQ/L (98-107); CREATININE FOR GFR 0.77 MG/DL (0.70-1.30); GLOMERULAR FILTRATION RATE > 60.0 (>35); GLUCOSE, FASTING 146 MG/DL (70-100); POTASSIUM SERUM 3.8 MEQ/L (3.5-5.1); SODIUM LEVEL 139 MEQ/L (136-145); TOTAL PROTEIN 6.8 GM/DL (6.4-8.2)
[2019-12-07] MEDS: ASPIRIN ENTERIC 325 MG TAB PO SCH (21:40)
[2019-12-07] MEDS: ACETAMINOPHEN TAB 650MG DOSE (2X325MG) PO PRN (21:41)
[2019-12-07] MEDS: ATORVASTATIN 20 MG TAB PO SCH (21:41)
--- NOTE | 2019-12-07 22:46 | DS.PDOC ---
Discharge Summary General Date of Admission Dec 03, 2019 at 01:18 Date of Discharge ALC on 12/05/19 Discharge Summary Date of Admission: December 03, 2019 Date of discharge/transfer to ALC: December 05, 2019 Attending Physician: Donna Mai PCP: see below Admission Diagnosis: Weakness/Pre-syncopy Discharge Diagnosis: Advanced Physiological deconditioning Secondary Diagnoses: Advanced Dementia Procedures: none HPI: 89 y.o M with hx of dementia presented for concerns of progressing weakness and limited physical activity Hospital Course: initial workup negative. slight leukocytosis that imprvoed without any antibitoc use. in the setting no other systemic signs of illness and lab improvemnt, presuming reactive. UA negative. CXR negative for pneumonia/consolidation. TSh from 10/03/19 0.738 (within normal range). clinical course indicative of advancing dementia rather than acute delirium. Patient was made ALC on 12/04 *sustained an unwitness fall on 12/07/19: no signs of trauma but given advanced demntia, ordered sinal xray and ct head. CT head negative for bleed Physical Exam: Physical Exam: General: no acute distress HEENT: normocephalic Neck: supple Heart: no abnormal heart sound son supine ausultation Lungs: coarse crackles on auscultation GI: soft Neuro:midly response Psych: lethargic; mildly responsive vitals as below Pending Lab or Test Results: spine x-rays (fell on 12/07/19) Immunizations Given During Admission: none Discharge Disposition: per PT/OT Diet: regular Discharge Medications: see attached Follow-up Appointments:pcp within 1 week time spent on discharge more than 30min Vital Signs/I&Os Vital Signs Date Time Temp Pulse Resp B/P (MAP) Pulse Ox O2 Delivery O2 Flow Rate FiO2 12/07/19 13:36 66 156/77 12/07/19 10:10 97.8 18 98 Room Air I&O- Last 24 Hours up to 6 AM 12/07/19 06:00 Intake Total 1410 ml Balance 1410 ml Laboratory Data Labs 24H Laboratory Tests 2 12/07/19 12:18: Immature Granulocyte % (Auto) 0.4, Neutrophils (%) (Auto) 76.5H, Lymphocytes (%) (Auto) 13.0L, Monocytes (%) (Auto) 9.7H, Eosinophils (%) (Auto) 0.2, Basophils (%) (Auto) 0.2, Neutrophils # (Auto) 10.0H, Lymphocytes # (Auto) 1.7, Monocytes # (Auto) 1.3H, Eosinophils # (Auto) 0.0, Basophils # (Auto) 0.0, Nucleated Red Blood Cells % (auto) 0.0, Anion Gap 7L, Glomerular Filtration Rate > 60.0, Calcium Level 9.1, Total Bilirubin 1.4H, Aspartate Amino Transf (AST/SGOT) 19, Alanine Aminotransferase (ALT/SGPT) 27, Alkaline Phosphatase 101, Total Protein 6.8, Albumin 3.2, Albumin/Globulin Ratio 0.9 CBC/BMP Laboratory Tests 12/07/19 12:18 Discharge Medications Scheduled Ascorbic Acid (Ascorbic Acid) 500 Mg Tab, 500 MG PO DAILY, (Reported) Aspirin (Aspirin EC) 325 Mg Tablet.dr, 325 MG PO QHS, (Reported) Atorvastatin Calcium (Atorvastatin Calcium) 40 Mg Tab, 40 MG PO QHS, (Reported) Cholecalciferol (Vitamin D3) (Vitamin D3) 1,000 Unit Tablet, 1,000 UNITS PO DAILY, (Reported) Citalopram Hydrobromide (Citalopram HBr) 40 Mg Tab, 40 MG PO DAILY, (Reported) Ferrous Sulfate (Ferrous Sulfate) 325 Mg Tablet, 325 MG PO DAILY, (Reported) Insulin Degludec (Tresiba) 100 Unit/1 Ml Vial, 15 UNIT SC DAILY, (Reported) Lisinopril (Lisinopril) 10 Mg Tab, 10 MG PO DAILY, (Reported) Metformin HCl (Metformin HCl) 500 Mg Tab, 2,000 MG PO QPM, (Reported) TAKES WITH DINNER Pantoprazole Sodium (Protonix) 40 Mg Tablet.dr, 40 MG PO BID, (Reported) Sitagliptin Phosphate (Januvia) 100 Mg Tab, 100 MG PO DAILY, (Reported) Scheduled PRN Acetaminophen (Acetaminophen) 325 Mg Tab, 325 MG PO Q4H PRN for PAIN, (Reported) Docusate Sodium (Docusate Sodium) 100 Mg Cap, 100 MG PO DAILY PRN for CONSTIPATION, (Reported) Allergies Coded Allergies: No Known Allergies (Unverified , 11/22/14) DONNA MAI DO Dec 07, 2019 22:46
[2019-12-08 06:00] VITALS: BP 156/81
[2019-12-08] MEDS: HumaLOG INSULIN (NovoLOG) PER UNIT SC SCH ×4 (07:30→20:46)
[2019-12-08] MEDS: amLODIPine 5 MG TAB PO SCH (10:19)
[2019-12-08] MEDS: FERROUS SULFATE 325MG TAB PO SCH (10:20)
[2019-12-08] MEDS: VITAMIN D 1,000 INTERNATIONAL UNITS TABLET PO SCH (10:20)
[2019-12-08] MEDS: ASCORBIC ACID 500 MG TAB PO SCH (10:20)
[2019-12-08] MEDS: ENOXAPARIN 30MG/0.3ML SYRINGE (J1650 PER 10MG) SC SCH (10:21)
[2019-12-08] MEDS: LEVEMIR (INSULIN DETEMIR) 1 UNITS/0.01ML SC SCH (10:21)
[2019-12-08] MEDS: CitaloPRAM (CeleXA) 20 MG TAB PO SCH (10:22)
[2019-12-08] MEDS: PANTOPRAZOLE 40MG TAB (PROTONIX) PO SCH ×2 (10:24→20:54)
[2019-12-08] MEDS: lisinopriL 10 MG TAB PO SCH (10:25)
[2019-12-08] MEDS: ACETAMINOPHEN TAB 650MG DOSE (2X325MG) PO PRN (16:11)
[2019-12-08] MEDS: ASPIRIN ENTERIC 325 MG TAB PO SCH (20:54)
[2019-12-08] MEDS: ATORVASTATIN 20 MG TAB PO SCH (20:54)
[2019-12-09] MEDS: IPRATROPIUM 0.5MG/ALBUTEROL 2.5MG INH SOL UD 3ML (DUONEB) NEB PRN ×2 (02:48→08:15)
[2019-12-09 02:50] VITALS: BP 147/67
[2019-12-09 02:58] LABS: CK-MB VALUE MASS 1.6 NG/ML (<3.6); CPK CREATINE PHOSPHOKINASE 64 U/L (39-308); TROPONIN I < 0.02 NG/ML (< 0.10)
[2019-12-09 03:24] LABS: NT-PRO BNP 309 PG/ML (<450)
[2019-12-09 06:00] VITALS: BP 142/68
[2019-12-09 07:10] LABS: CK-MB VALUE MASS 2.2 NG/ML (<3.6); CPK CREATINE PHOSPHOKINASE 65 U/L (39-308); MB/CK RELATIVE INDEX 3.38 (< OR =4); TROPONIN I < 0.02 NG/ML (< 0.10)
[2019-12-09] MEDS: ACETYLCYSTEINE 20% 4 ML VIAL (200MG/ML) INH SCH ×2 (08:15→19:32)
[2019-12-09] MEDS: HumaLOG INSULIN (NovoLOG) PER UNIT SC SCH ×4 (09:38→21:00)
[2019-12-09] MEDS: LEVEMIR (INSULIN DETEMIR) 1 UNITS/0.01ML SC SCH (09:38)
[2019-12-09] MEDS: FERROUS SULFATE 325MG TAB PO SCH (09:39)
[2019-12-09] MEDS: ENOXAPARIN 30MG/0.3ML SYRINGE (J1650 PER 10MG) SC SCH (09:39)
[2019-12-09] MEDS: VITAMIN D 1,000 INTERNATIONAL UNITS TABLET PO SCH (09:40)
[2019-12-09] MEDS: ASCORBIC ACID 500 MG TAB PO SCH (09:40)
[2019-12-09] MEDS: PANTOPRAZOLE 40MG TAB (PROTONIX) PO SCH ×2 (09:40→21:16)
[2019-12-09] MEDS: CitaloPRAM (CeleXA) 20 MG TAB PO SCH (09:40)
[2019-12-09] MEDS: amLODIPine 5 MG TAB PO SCH (09:41)
[2019-12-09] MEDS: lisinopriL 10 MG TAB PO SCH (09:41)
--- NOTE | 2019-12-09 16:43 | IPNPDOC ---
Subjective Date Seen The patient was seen on 12/09/19. Subjective Chief Complaint/HPI Pt has advance dementia, had cain placed in secondary to retention, does not communicate secondary to advance dementia General: Reports: ROS Unobtainable Objective Physical Examination Neck Exam: Positive: Supple Chest Exam: Positive: Clear to auscultation, Normal air movement Heart Exam: Positive: Rate Normal Abdomen Exam: Positive: Normal bowel sounds, Soft Extremity Exam: Positive: Normal pulses Skin Exam: Positive: Nl turgor and temperature Psych Exam: Positive: Other (lethargic on AM exam; arousable but not very communicative) Assessment /Plan Problems (1) Multiple falls Status: Acute Problem Text: repeat CXR, thoracic and lumbar spine XRS were reviewd by me and did not see any FX , official reports are still pending Re-consult PT to get pt OOB to avoid Decub ulcers or DVT Discussed with pts daughter at bedside, agreed with plan to get him transfered to rehab facility with experience in handling dementia patients. repaet am labs (2) Dementia Status: Chronic Problem Text: Supporative care (3) Urinary retention Status: Acute Problem Text: CBC,UA,CMP Voiding trial in am Flomax 0.4 mg q hs Plan/VTE VTE Prophylaxis Ordered?: Yes Plan Diet: Continue Current Activity: Continue Current Therapy: PT, OT, Home Safety Eval Anticipated Discharge: Assisted Living VS, I&O, 24H, [facility] Vital Signs/I&O Vital Signs Date Time Temp Pulse Resp B/P (MAP) Pulse Ox O2 Delivery O2 Flow Rate FiO2 12/09/19 09:41 80 144/75 12/09/19 06:00 98.8 20 94 Room Air I&O- Last 24 Hours up to 6 AM 12/09/19 06:00 Intake Total 650 ml Output Total 250 ml Balance 400 ml Laboratory Data 24H LABS Laboratory Tests 2 12/09/19 02:20: Total Creatine Kinase 64, Creatine Kinase MB 1.6, Creatine Kinase MB Relative Index 2.50, Troponin I < 0.02, DM-Kza-Y-Type Natriuretic Peptide 309 12/09/19 05:31: Total Creatine Kinase 65, Creatine Kinase MB 2.2, Creatine Kinase MB Relative Index 3.38, Troponin I < 0.02 DEBORAH STANTON MD Dec 09, 2019 16:43
[2019-12-09] MEDS: ASPIRIN ENTERIC 325 MG TAB PO SCH (21:16)
[2019-12-09] MEDS: TAMSULOSIN 0.4 MG CAP PO SCH (21:16)
[2019-12-09] MEDS: ATORVASTATIN 20 MG TAB PO SCH (21:16)
[2019-12-10 02:09] LABS: APPEARANCE, URINE CLOUDY (CLEAR); BACTERIA, URINE AUTO NEGATIVE (NEGATIVE); BILIRUBIN, URINE AUTO NEGATIVE (NEGATIVE); BLOOD, URINE BLOOD 3+ (NEGATIVE); COLOR, URINE AMBER (YELLOW); GLUCOSE, URINE (UA) AUTO 3+ mg/dL (NEGATIVE); KETONE, URINE AUTO 1+ mg/dL (NEGATIVE); LEUKOCYTE ESTERASE, URINE AUTO TRACE (NEGATIVE); MUCUS, URINE SMALL (NEGATIVE); NITRITE, URINE AUTO NEGATIVE (NEGATIVE); PROTEIN, URINE AUTO 2+ mg/dL (NEGATIVE); RBC, URINE AUTO TNTC /HPF (0-3); SPECIFIC GRAVITY URINE AUTO 1.023 (1.002-1.035); SQUAMOUS EPITHELIAL CELL UR AU 0 /HPF (0-6); UROBILINOGEN, URINE AUTO 0.2 mg/dL (0.0-2.0); WBC, URINE AUTO 48 /HPF (0-3)
[2019-12-10 06:00] VITALS: BP 112/55
[2019-12-10 06:48] LABS: BASO % 0.4 % (0.0-1.0); EOS # 0.2 10^3/uL (0.0-0.5); EOS % 1.4 % (0.0-3.0); HEMATOCRIT 42.9 % (42.0-52.0); HEMOGLOBIN 14.2 g/dl (13.5-17.5); LYMPH # 2.1 10^3/uL (1.5-5.0); LYMPH % 18.7 % (24.0-44.0); MEAN CORPUSCULAR HEMOGLOBIN 30.2 pg (27.0-33.0); MEAN CORPUSCULAR HGB CONC 33.1 g/dl (32.0-36.5); MEAN CORPUSCULAR VOLUME 91.3 fl (80.0-96.0); MONO # 1.3 10^3/uL (0.0-0.8); MONO % 11.9 % (0.0-5.0); NEUTROPHILS # 7.4 10^3/uL (1.5-8.5); NEUTROPHILS % 67.1 % (36.0-66.0); PLATELET COUNT, AUTOMATED 241 10^3/uL (150-450)
[2019-12-10 07:21] LABS: ALBUMIN 2.6 GM/DL (3.2-5.2); ALT/SGPT 22 U/L (12-78); BLOOD UREA NITROGEN 17 MG/DL (7-18); CALCIUM LEVEL 8.3 MG/DL (8.8-10.2); CARBON DIOXIDE LEVEL 28 MEQ/L (21-32); CHLORIDE LEVEL 107 MEQ/L (98-107); GLOMERULAR FILTRATION RATE > 60.0 (>35); GLUCOSE, FASTING 114 MG/DL (70-100); POTASSIUM SERUM 3.4 MEQ/L (3.5-5.1); SODIUM LEVEL 143 MEQ/L (136-145); TOTAL PROTEIN 5.7 GM/DL (6.4-8.2)
[2019-12-10] MEDS: HumaLOG INSULIN (NovoLOG) PER UNIT SC SCH ×4 (07:30→21:00)
[2019-12-10] MEDS: ACETYLCYSTEINE 20% 4 ML VIAL (200MG/ML) INH SCH ×2 (07:46→20:00)
[2019-12-10] MEDS: IPRATROPIUM 0.5MG/ALBUTEROL 2.5MG INH SOL UD 3ML (DUONEB) NEB PRN (07:47)
[2019-12-10] MEDS: ENOXAPARIN 30MG/0.3ML SYRINGE (J1650 PER 10MG) SC SCH (09:04)
[2019-12-10] MEDS: LEVEMIR (INSULIN DETEMIR) 1 UNITS/0.01ML SC SCH (09:05)
[2019-12-10] MEDS: amLODIPine 5 MG TAB PO SCH (13:54)
[2019-12-10] MEDS: ASCORBIC ACID 500 MG TAB PO SCH (13:54)
[2019-12-10] MEDS: CitaloPRAM (CeleXA) 20 MG TAB PO SCH (13:55)
[2019-12-10] MEDS: FERROUS SULFATE 325MG TAB PO SCH (13:55)
[2019-12-10] MEDS: DOCUSATE SODIUM 100 MG CAP PO PRN (13:55)
[2019-12-10] MEDS: lisinopriL 10 MG TAB PO SCH (13:55)
[2019-12-10] MEDS: PANTOPRAZOLE 40MG TAB (PROTONIX) PO SCH ×3 (13:55→22:10)
[2019-12-10] MEDS: VITAMIN D 1,000 INTERNATIONAL UNITS TABLET PO SCH (13:55)
[2019-12-10] MEDS: POTASSIUM CHLORIDE 10 MEQ SR TABLET PO ONE ×2 (20:07→22:10)
[2019-12-10] MEDS: ASPIRIN ENTERIC 325 MG TAB PO SCH ×2 (20:08→22:10)
[2019-12-10] MEDS: ATORVASTATIN 20 MG TAB PO SCH ×2 (20:08→22:10)
[2019-12-10] MEDS: TAMSULOSIN 0.4 MG CAP PO SCH ×2 (20:08→22:09)
[2019-12-10] MEDS ORDERED: KCL 10MEQ/100ML SWI (KRUN) 10 MEQ in IV 1 EA IV ONE (21:15)
[2019-12-11 06:00] VITALS: BP 105/51
[2019-12-11] MEDS: ACETYLCYSTEINE 20% 4 ML VIAL (200MG/ML) INH SCH ×2 (08:04→19:40)
[2019-12-11] MEDS: amLODIPine 5 MG TAB PO SCH (09:00)
[2019-12-11] MEDS: lisinopriL 10 MG TAB PO SCH (09:00)
[2019-12-11] MEDS: POLYVINYL ALCOHOL OPHTH SOLN 15 ML(LIQUITEARS) OU SCH ×4 (09:00→20:45)
[2019-12-11] MEDS: ENOXAPARIN 30MG/0.3ML SYRINGE (J1650 PER 10MG) SC SCH (09:27)
[2019-12-11] MEDS: LEVEMIR (INSULIN DETEMIR) 1 UNITS/0.01ML SC SCH (09:28)
[2019-12-11] MEDS: HumaLOG INSULIN (NovoLOG) PER UNIT SC SCH ×5 (09:28→20:33)
[2019-12-11] MEDS: CitaloPRAM (CeleXA) 20 MG TAB PO SCH (09:29)
[2019-12-11] MEDS: ASCORBIC ACID 500 MG TAB PO SCH (09:29)
[2019-12-11] MEDS: DOCUSATE SODIUM 100 MG CAP PO PRN (09:29)
[2019-12-11] MEDS: ACETAMINOPHEN TAB 650MG DOSE (2X325MG) PO PRN (09:29)
[2019-12-11] MEDS: PANTOPRAZOLE 40MG TAB (PROTONIX) PO SCH ×2 (09:29→20:45)
[2019-12-11] MEDS: FERROUS SULFATE 325MG TAB PO SCH (09:29)
[2019-12-11] MEDS: VITAMIN D 1,000 INTERNATIONAL UNITS TABLET PO SCH (09:29)
[2019-12-11 09:35] VITALS: BP 100/54
--- NOTE | 2019-12-11 10:03 | IPNPDOC ---
Subjective Date Seen The patient was seen on 12/11/19. Subjective Chief Complaint/HPI pt is lethargic , resonds to tactile and vocal stimuli but does not communicate, hx of advance dementia General: Reports: ROS Unobtainable Objective Physical Examination Neck Exam: Positive: Supple Chest Exam: Positive: Clear to auscultation, Normal air movement Heart Exam: Positive: Rate Normal Abdomen Exam: Positive: Normal bowel sounds, Soft Extremity Exam: Positive: Normal pulses Skin Exam: Positive: Nl turgor and temperature Psych Exam: Positive: Other (lethargic on AM exam; arousable but not very communicative) Assessment /Plan Problems (1) Delirium due to another medical condition, acute, hypoactive Status: Acute Problem Text: Hypoactive delirium most likely secondary to UTI Cain was placed back in, last night IVF NS at 70cc/hr IV anti Bx for UTI Supporative care Possible transfer to SNF once bed available (2) Urinary retention Status: Acute Problem Text: most likely secondary to delirium RE- cathterized again last night Will DC cain, once Delirium has resolved (3) UTI (urinary tract infection) Status: Acute Problem Text: IV Rocephin as per orders Awaiting Urine cultures (4) Multiple falls Status: Acute Problem Text: repeat CXR, thoracic and lumbar spine XRS were reviewd by me and did not see any FX , official reports are still pending Re-consult PT to get pt OOB to avoid Decub ulcers or DVT Discussed with pts daughter at bedside, agreed with plan to get him transfered to rehab facility with experience in handling dementia patients. (5) Dementia Status: Chronic Problem Text: Very advance Dementia Supporative care Artificial tears for dry eyes. Plan/VTE VTE Prophylaxis Ordered?: Yes Plan Diet: Continue Current Activity: Continue Current Therapy: PT, OT, Home Safety Eval Anticipated Discharge: Assisted Living VS, I&O, 24H, [facility] Vital Signs/I&O Vital Signs Date Time Temp Pulse Resp B/P (MAP) Pulse Ox O2 Delivery O2 Flow Rate FiO2 12/11/19 09:35 100/54 (69) 12/11/19 08:07 16 12/11/19 06:00 98.0 63 90 Room Air I&O- Last 24 Hours up to 6 AM 12/11/19 06:00 Intake Total 480 ml Output Total 475 ml Balance 5 ml Laboratory Data 24H LABS Laboratory Tests 2 12/10/19 21:37: Magnesium Level 1.8 Microbiology Microbiology 12/10/19 Urine Culture, Received Pending DEBORAH STANTON MD Dec 11, 2019 10:03
[2019-12-11 10:19] LABS: HEMATOCRIT 46.7 % (42.0-52.0); HEMOGLOBIN 15.3 g/dl (13.5-17.5); MEAN CORPUSCULAR HEMOGLOBIN 30.1 pg (27.0-33.0); MEAN CORPUSCULAR HGB CONC 32.8 g/dl (32.0-36.5); MEAN CORPUSCULAR VOLUME 91.7 fl (80.0-96.0); PLATELET COUNT, AUTOMATED 295 10^3/uL (150-450); RED BLOOD COUNT 5.09 10^6/uL (4.30-6.10); WHITE BLOOD COUNT 16.1 10^3/uL (4.0-10.0)
[2019-12-11] MEDS: NS 0.45% 1,000 ML IV SCH ×2 (10:30→23:43)
[2019-12-11] MEDS: cefTRIAXone SOD 1 GM in D5W MINI-BAG PLUS 50 ML IV SCH (10:30)
[2019-12-11 10:45] LABS: BLOOD UREA NITROGEN 23 MG/DL (7-18); CALCIUM LEVEL 9.1 MG/DL (8.8-10.2); CARBON DIOXIDE LEVEL 28 MEQ/L (21-32); CHLORIDE LEVEL 107 MEQ/L (98-107); CREATININE FOR GFR 1.03 MG/DL (0.70-1.30); GLOMERULAR FILTRATION RATE > 60.0 (>35); GLUCOSE, FASTING 147 MG/DL (70-100); POTASSIUM SERUM 4.1 MEQ/L (3.5-5.1); SODIUM LEVEL 142 MEQ/L (136-145)
[2019-12-11] MEDS ORDERED: CIPROFLOXACIN 250MG TAB PO SCH (18:00)
[2019-12-11] MEDS: IPRATROPIUM 0.5MG/ALBUTEROL 2.5MG INH SOL UD 3ML (DUONEB) NEB PRN (19:40)
[2019-12-11 20:00] VITALS: BP 115/60
[2019-12-11] MEDS: ASPIRIN ENTERIC 325 MG TAB PO SCH (20:44)
[2019-12-11] MEDS: ATORVASTATIN 20 MG TAB PO SCH (20:44)
[2019-12-11] MEDS: TAMSULOSIN 0.4 MG CAP PO SCH (20:45)
[2019-12-12 06:00] VITALS: BP 105/64
[2019-12-12] MEDS: HumaLOG INSULIN (NovoLOG) PER UNIT SC SCH ×4 (07:30→20:40)
[2019-12-12] MEDS: ACETYLCYSTEINE 20% 4 ML VIAL (200MG/ML) INH SCH ×2 (08:00→19:57)
[2019-12-12] MEDS: ASCORBIC ACID 500 MG TAB PO SCH (09:29)
[2019-12-12] MEDS: VITAMIN D 1,000 INTERNATIONAL UNITS TABLET PO SCH (09:29)
[2019-12-12] MEDS: amLODIPine 5 MG TAB PO SCH (09:30)
[2019-12-12] MEDS: CitaloPRAM (CeleXA) 20 MG TAB PO SCH (09:30)
[2019-12-12] MEDS: lisinopriL 10 MG TAB PO SCH (09:31)
[2019-12-12] MEDS: PANTOPRAZOLE 40MG TAB (PROTONIX) PO SCH ×2 (09:31→21:35)
[2019-12-12] MEDS: FERROUS SULFATE 325MG TAB PO SCH (09:31)
[2019-12-12] MEDS: LEVEMIR (INSULIN DETEMIR) 1 UNITS/0.01ML SC SCH (09:32)
[2019-12-12] MEDS: POLYVINYL ALCOHOL OPHTH SOLN 15 ML(LIQUITEARS) OU SCH ×4 (09:33→21:36)
[2019-12-12] MEDS: ENOXAPARIN 30MG/0.3ML SYRINGE (J1650 PER 10MG) SC SCH (09:33)
[2019-12-12] MEDS: cefTRIAXone SOD 1 GM in D5W MINI-BAG PLUS 50 ML IV SCH (09:41)
[2019-12-12] MEDS: NS 0.45% 1,000 ML IV SCH (12:44)
[2019-12-12 20:00] VITALS: BP 114/63
[2019-12-12] MEDS: TAMSULOSIN 0.4 MG CAP PO SCH (21:35)
[2019-12-12] MEDS: ASPIRIN ENTERIC 325 MG TAB PO SCH (21:35)
[2019-12-12] MEDS: ATORVASTATIN 20 MG TAB PO SCH (21:35)
[2019-12-13] MEDS: NS 0.45% 1,000 ML IV SCH ×3 (05:59→23:35)
[2019-12-13 06:00] VITALS: BP 115/62
[2019-12-13] MEDS: HumaLOG INSULIN (NovoLOG) PER UNIT SC SCH ×4 (07:30→22:23)
[2019-12-13] MEDS: ACETYLCYSTEINE 20% 4 ML VIAL (200MG/ML) INH SCH ×2 (07:59→20:00)
[2019-12-13] MEDS: POLYVINYL ALCOHOL OPHTH SOLN 15 ML(LIQUITEARS) OU SCH ×4 (09:00→22:26)
[2019-12-13] MEDS: LEVEMIR (INSULIN DETEMIR) 1 UNITS/0.01ML SC SCH (09:00)
[2019-12-13] MEDS: cefTRIAXone SOD 1 GM in D5W MINI-BAG PLUS 50 ML IV SCH (09:45)
[2019-12-13] MEDS: ASCORBIC ACID 500 MG TAB PO SCH (12:13)
[2019-12-13] MEDS: CitaloPRAM (CeleXA) 20 MG TAB PO SCH (12:14)
[2019-12-13] MEDS: VITAMIN D 1,000 INTERNATIONAL UNITS TABLET PO SCH (12:14)
[2019-12-13] MEDS: DOCUSATE SODIUM 100 MG CAP PO PRN (12:15)
[2019-12-13] MEDS: FERROUS SULFATE 325MG TAB PO SCH (12:15)
[2019-12-13] MEDS: ENOXAPARIN 30MG/0.3ML SYRINGE (J1650 PER 10MG) SC SCH (12:16)
[2019-12-13] MEDS: amLODIPine 5 MG TAB PO SCH (12:17)
[2019-12-13] MEDS: lisinopriL 10 MG TAB PO SCH (12:17)
[2019-12-13] MEDS: PANTOPRAZOLE 40MG TAB (PROTONIX) PO SCH ×2 (12:20→22:28)
[2019-12-13 14:00] VITALS: BP 143/67
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
[2019-12-13] MEDS ORDERED: OLANZapine INTRAMUSCULAR 10MG VIAL IM ONE (21:45)
[2019-12-13 22:00] VITALS: BP 132/58
[2019-12-13] MEDS: OLANZapine INTRAMUSCULAR 10MG VIAL IM PRN (22:23)
[2019-12-13] MEDS: ASPIRIN ENTERIC 325 MG TAB PO SCH (22:28)
[2019-12-13] MEDS: ATORVASTATIN 20 MG TAB PO SCH (22:28)
[2019-12-13] MEDS: TAMSULOSIN 0.4 MG CAP PO SCH (22:28)
[2019-12-13 23:20] VITALS: BP 135/61
[2019-12-14 06:00] VITALS: BP 136/60
[2019-12-14] MEDS: ACETYLCYSTEINE 20% 4 ML VIAL (200MG/ML) INH SCH ×2 (07:22→19:45)
[2019-12-14] MEDS: cefTRIAXone SOD 1 GM in D5W MINI-BAG PLUS 50 ML IV SCH (09:10)
[2019-12-14] MEDS: LEVEMIR (INSULIN DETEMIR) 1 UNITS/0.01ML SC SCH (09:11)
[2019-12-14] MEDS: PANTOPRAZOLE 40MG TAB (PROTONIX) PO SCH (09:11)
[2019-12-14] MEDS: CitaloPRAM (CeleXA) 20 MG TAB PO SCH (09:11)
[2019-12-14] MEDS: ASCORBIC ACID 500 MG TAB PO SCH (09:11)
[2019-12-14] MEDS: FERROUS SULFATE 325MG TAB PO SCH (09:12)
[2019-12-14] MEDS: VITAMIN D 1,000 INTERNATIONAL UNITS TABLET PO SCH (09:12)
[2019-12-14] MEDS: lisinopriL 10 MG TAB PO SCH (09:15)
[2019-12-14] MEDS: amLODIPine 5 MG TAB PO SCH (09:15)
[2019-12-14] MEDS: ENOXAPARIN 30MG/0.3ML SYRINGE (J1650 PER 10MG) SC SCH (09:16)
[2019-12-14] MEDS: POLYVINYL ALCOHOL OPHTH SOLN 15 ML(LIQUITEARS) OU SCH ×4 (09:17→21:00)
[2019-12-14] MEDS: HumaLOG INSULIN (NovoLOG) PER UNIT SC SCH ×4 (09:17→21:00)
--- NOTE | 2019-12-14 11:31 | IPNPDOC ---
Subjective Date Seen The patient was seen on 12/14/19. Subjective Chief Complaint/HPI pt in no distress,he does get sun downing every evening and agitation at night. He offers no complaints but difficult to get ROS secondary to advance dementia General: Reports: ROS Unobtainable Objective Physical Examination Neck Exam: Positive: Supple Chest Exam: Positive: Clear to auscultation, Normal air movement Heart Exam: Positive: Rate Normal Abdomen Exam: Positive: Normal bowel sounds, Soft Extremity Exam: Positive: Normal pulses Skin Exam: Positive: Nl turgor and temperature Assessment /Plan Problems (1) Delirium due to another medical condition, acute, hypoactive Status: Acute Problem Text: Hypoactive delirium most likely secondary to UTI Cain was placed back in, last night IVF NS at 70cc/hr Rocephin started for UTI Add seroquel 12.5 mg bid with PRN meds for agitation Supporative care Possible transfer to SNF once bed available (2) Urinary retention Status: Acute Problem Text: most likely secondary to delirium and UTI Will continue cain support till, uti is resolved then will try again to give him a voiding trial to DC cain Flomax 0.4 mg q hs (3) UTI (urinary tract infection) Status: Acute Problem Text: IV Rocephin as per orders Urine cultures are still pending CBC,CMP in am (4) Multiple falls Status: Acute Problem Text: repeat CXR, thoracic and lumbar spine XRS were reviewd by me and did not see any FX , official reports are still pending Re-consult PT to get pt OOB to avoid Decub ulcers or DVT Discussed with pts daughter at bedside, agreed with plan to get him transfered to rehab facility with experience in handling dementia patients. (5) Dementia Status: Chronic Problem Text: Very advance Dementia Add seroquel 12.5 mg bid for sun-downing symptoms Supporative care Artificial tears for dry eyes. Plan/VTE VTE Prophylaxis Ordered?: Yes Plan Diet: Continue Current Activity: Continue Current Therapy: PT, OT, Home Safety Eval Anticipated Discharge: Assisted Living VS, I&O, 24H, [facility] Vital Signs/I&O Vital Signs Date Time Temp Pulse Resp B/P (MAP) Pulse Ox O2 Delivery O2 Flow Rate FiO2 12/14/19 09:15 78 12/14/19 09:15 113/57 12/14/19 06:00 98.5 21 96 Room Air I&O- Last 24 Hours up to 6 AM 12/14/19 05:59 Intake Total 2320 ml Output Total 1850 ml Balance 470 ml Laboratory Data Microbiology Microbiology 12/10/19 Urine Culture, Received Pending DEBORAH STANTON MD Dec 14, 2019 11:31
[2019-12-14] MEDS: QUEtiapine FUMARATE 12.5 MG HALF-TAB PO SCH ×2 (13:14→21:00)
[2019-12-14] MEDS: NS 0.45% 1,000 ML IV SCH (15:45)
[2019-12-14] MEDS: TAMSULOSIN 0.4 MG CAP PO SCH (21:00)
[2019-12-14] MEDS: ASPIRIN ENTERIC 325 MG TAB PO SCH (21:00)
[2019-12-14] MEDS: RAMELTEON 8 MG TAB (ROZEREM) PO SCH (21:00)
[2019-12-14] MEDS: ATORVASTATIN 20 MG TAB PO SCH (21:00)
[2019-12-14] MEDS ORDERED: QUEtiapine FUMARATE 12.5 MG HALF-TAB PO PRN (21:45)
[2019-12-14 22:00] VITALS: BP 163/73
[2019-12-14] MEDS: D5W/0.45% SODIUM CHLORIDE 1,000 ML IV SCH (23:29)
[2019-12-14] MEDS: PIPERACILLIN/TAZOBACTAM SOD 3.375 GM in D5W MINI-BAG PLUS 50 ML IV SCH (23:30)
[2019-12-15] MEDS: PIPERACILLIN/TAZOBACTAM SOD 3.375 GM in D5W MINI-BAG PLUS 50 ML IV SCH ×4 (05:31→23:07)
[2019-12-15 06:00] VITALS: BP 143/60
[2019-12-15 06:27] LABS: BASO # 0.1 10^3/uL (0.0-0.2); BASO % 0.6 % (0.0-1.0); EOS # 0.3 10^3/uL (0.0-0.5); EOS % 3.3 % (0.0-3.0); HEMATOCRIT 41.2 % (42.0-52.0); HEMOGLOBIN 13.6 g/dl (13.5-17.5); LYMPH # 2.3 10^3/uL (1.5-5.0); LYMPH % 26.1 % (24.0-44.0); MEAN CORPUSCULAR HEMOGLOBIN 30.2 pg (27.0-33.0); MEAN CORPUSCULAR VOLUME 91.6 fl (80.0-96.0); MONO # 0.9 10^3/uL (0.0-0.8); MONO % 10.5 % (0.0-5.0); NEUTROPHILS # 5.3 10^3/uL (1.5-8.5); NEUTROPHILS % 58.6 % (36.0-66.0); PLATELET COUNT, AUTOMATED 295 10^3/uL (150-450)
[2019-12-15 06:47] LABS: ALBUMIN 2.3 GM/DL (3.2-5.2); ALT/SGPT 29 U/L (12-78); BILIRUBIN,TOTAL 0.8 MG/DL (0.2-1.0); BLOOD UREA NITROGEN 12 MG/DL (7-18); CALCIUM LEVEL 8.1 MG/DL (8.8-10.2); CARBON DIOXIDE LEVEL 27 MEQ/L (21-32); CHLORIDE LEVEL 113 MEQ/L (98-107); CREATININE FOR GFR 0.67 MG/DL (0.70-1.30); GLOMERULAR FILTRATION RATE > 60.0 (>35); GLUCOSE, FASTING 100 MG/DL (70-100); MAGNESIUM LEVEL 1.6 MG/DL (1.8-2.4); POTASSIUM SERUM 3.5 MEQ/L (3.5-5.1); SODIUM LEVEL 145 MEQ/L (136-145); TOTAL PROTEIN 5.1 GM/DL (6.4-8.2)
[2019-12-15] MEDS: ACETYLCYSTEINE 20% 4 ML VIAL (200MG/ML) INH SCH ×2 (07:21→20:05)
[2019-12-15] MEDS: HumaLOG INSULIN (NovoLOG) PER UNIT SC SCH ×4 (07:30→21:00)
[2019-12-15] MEDS ORDERED: MAG SULF 1GM/100ML (MAG RUN) 1 GM in IV 1 EA IV ONE (08:00)
[2019-12-15] MEDS: LEVEMIR (INSULIN DETEMIR) 1 UNITS/0.01ML SC SCH (09:00)
[2019-12-15] MEDS: PANTOPRAZOLE 40MG TAB (PROTONIX) PO SCH (09:00)
[2019-12-15] MEDS: CitaloPRAM (CeleXA) 20 MG TAB PO SCH (09:00)
[2019-12-15] MEDS: QUEtiapine FUMARATE 12.5 MG HALF-TAB PO SCH ×4 (09:00→23:14)
[2019-12-15] MEDS: FERROUS SULFATE 325MG TAB PO SCH (09:00)
[2019-12-15] MEDS: amLODIPine 5 MG TAB PO SCH (09:00)
[2019-12-15] MEDS: ASCORBIC ACID 500 MG TAB PO SCH (09:00)
[2019-12-15] MEDS: lisinopriL 10 MG TAB PO SCH (09:00)
[2019-12-15] MEDS: VITAMIN D 1,000 INTERNATIONAL UNITS TABLET PO SCH (09:00)
[2019-12-15] MEDS: ENOXAPARIN 30MG/0.3ML SYRINGE (J1650 PER 10MG) SC SCH (10:03)
[2019-12-15] MEDS: POLYVINYL ALCOHOL OPHTH SOLN 15 ML(LIQUITEARS) OU SCH ×4 (10:05→21:20)
--- NOTE | 2019-12-15 10:44 | IPNPDOC ---
Subjective Date Seen The patient was seen on 12/15/19. Subjective Chief Complaint/HPI pt easily woke up with tactile stimuli, unable to offers any complaints. General: Reports: ROS Unobtainable Objective Physical Examination Neck Exam: Positive: Supple Chest Exam: Positive: Clear to auscultation, Normal air movement Heart Exam: Positive: Rate Normal Abdomen Exam: Positive: Normal bowel sounds, Soft Extremity Exam: Positive: Normal pulses Skin Exam: Positive: Nl turgor and temperature Assessment /Plan Problems (1) Delirium due to another medical condition, acute, hypoactive Status: Acute Problem Text: Hypoactive delirium most likely secondary to UTI Continue Cain care for urinary retention, will try to Dc cain in few days IVF NS at 70cc/hr urine cultures positive for aerococcus: anti bx switched to Zosyn Add seroquel 12.5 mg bid with PRN meds for agitation Supporative care Possible transfer to SNF once bed available (2) Urinary retention Status: Acute Problem Text: most likely secondary to delirium and UTI Will continue cain support till, uti is resolved then will try again to give him a voiding trial to DC cain Flomax 0.4 mg q hs (3) UTI (urinary tract infection) Status: Acute Problem Text: IV Zosyn Aerococcus positivee in urine cultures (4) Multiple falls Status: Acute Problem Text: repeat CXR, thoracic and lumbar spine XRS were reviewd by me and did not see any FX , official reports are still pending Re-consult PT to get pt OOB to avoid Decub ulcers or DVT Discussed with pts daughter at bedside, agreed with plan to get him transfered to rehab facility with experience in handling dementia patients. (5) Dementia Status: Chronic Problem Text: Very advance Dementia Add seroquel 12.5 mg bid for sun-downing symptoms Supporative care Artificial tears for dry eyes. Plan/VTE VTE Prophylaxis Ordered?: Yes Plan Diet: Continue Current Activity: Continue Current Therapy: PT, OT, Home Safety Eval Anticipated Discharge: Assisted Living VS, I&O, 24H, [facility] Vital Signs/I&O Vital Signs Date Time Temp Pulse Resp B/P (MAP) Pulse Ox O2 Delivery O2 Flow Rate FiO2 12/15/19 09:00 51 143/62 12/15/19 06:00 97.5 20 95 Room Air I&O- Last 24 Hours up to 6 AM 12/15/19 06:00 Intake Total 1690 ml Output Total 1505 ml Balance 185 ml Laboratory Data 24H LABS Laboratory Tests 2 12/14/19 21:14: Bedside Glucose Confirm (Misc) 111 12/15/19 06:00: Immature Granulocyte % (Auto) 0.9, Neutrophils (%) (Auto) 58.6, Lymphocytes (%) (Auto) 26.1, Monocytes (%) (Auto) 10.5H, Eosinophils (%) (Auto) 3.3H, Basophils (%) (Auto) 0.6, Neutrophils # (Auto) 5.3, Lymphocytes # (Auto) 2.3, Monocytes # (Auto) 0.9H, Eosinophils # (Auto) 0.3, Basophils # (Auto) 0.1, Nucleated Red Blood Cells % (auto) 0.0, Anion Gap 5L, Glomerular Filtration Rate > 60.0, Calc ium Level 8.1L, Magnesium Level 1.6L, Total Bilirubin 0.8, Aspartate Amino Transf (AST/SGOT) 19, Alanine Aminotransferase (ALT/SGPT) 29, Alkaline Phosphatase 115, Total Protein 5.1L, Albumin 2.3L, Albumin/Globulin Ratio 0.8 CBC/BMP Laboratory Tests 12/15/19 06:00 Microbiology Microbiology 12/10/19 Urine Culture - Final, Complete Aerococcus Urinae DEBORAH STANTON MD Dec 15, 2019 10:43
[2019-12-15] MEDS: D5W/0.45% SODIUM CHLORIDE 1,000 ML IV SCH (13:57)
[2019-12-15 14:00] VITALS: BP 160/70
[2019-12-15] MEDS: IPRATROPIUM 0.5MG/ALBUTEROL 2.5MG INH SOL UD 3ML (DUONEB) NEB PRN (20:05)
[2019-12-15] MEDS: RAMELTEON 8 MG TAB (ROZEREM) PO SCH (21:20)
[2019-12-15] MEDS: ATORVASTATIN 20 MG TAB PO SCH (21:20)
[2019-12-15] MEDS: ASPIRIN ENTERIC 325 MG TAB PO SCH (21:20)
[2019-12-15] MEDS: TAMSULOSIN 0.4 MG CAP PO SCH (21:20)
[2019-12-15 22:00] VITALS: BP 145/68
[2019-12-16] MEDS: PIPERACILLIN/TAZOBACTAM SOD 3.375 GM in D5W MINI-BAG PLUS 50 ML IV SCH ×3 (05:02→17:31)
[2019-12-16 06:00] VITALS: BP 134/64
[2019-12-16] MEDS: ACETYLCYSTEINE 20% 4 ML VIAL (200MG/ML) INH SCH ×2 (08:00→19:39)
[2019-12-16] MEDS: LEVEMIR (INSULIN DETEMIR) 1 UNITS/0.01ML SC SCH (08:41)
[2019-12-16] MEDS: D5W/0.45% SODIUM CHLORIDE 1,000 ML IV SCH ×2 (08:41→17:32)
[2019-12-16] MEDS: ENOXAPARIN 30MG/0.3ML SYRINGE (J1650 PER 10MG) SC SCH (08:42)
[2019-12-16] MEDS: HumaLOG INSULIN (NovoLOG) PER UNIT SC SCH ×4 (08:42→21:00)
[2019-12-16] MEDS: FERROUS SULFATE 325MG TAB PO SCH (08:43)
[2019-12-16] MEDS: CitaloPRAM (CeleXA) 20 MG TAB PO SCH (08:43)
[2019-12-16] MEDS: amLODIPine 5 MG TAB PO SCH (08:43)
[2019-12-16] MEDS: PANTOPRAZOLE 40MG TAB (PROTONIX) PO SCH (08:43)
[2019-12-16] MEDS: QUEtiapine FUMARATE 12.5 MG HALF-TAB PO SCH ×2 (08:44→22:05)
[2019-12-16] MEDS: POLYVINYL ALCOHOL OPHTH SOLN 15 ML(LIQUITEARS) OU SCH ×4 (08:44→22:06)
[2019-12-16] MEDS: ASCORBIC ACID 500 MG TAB PO SCH (08:44)
[2019-12-16] MEDS: lisinopriL 10 MG TAB PO SCH (08:44)
[2019-12-16] MEDS: VITAMIN D 1,000 INTERNATIONAL UNITS TABLET PO SCH (08:44)
--- NOTE | 2019-12-16 11:24 | IPNPDOC ---
Subjective Date Seen The patient was seen on 12/16/19. Subjective Chief Complaint/HPI pt is up, awake toady, offers no complaints General: Denies: ROS Unobtainable, Chills, Night Sweats, Fatigue, Malaise, Normal Appetite, Other Symptoms Constitutional: Denies: Chills, Fever, Malaise, Night Sweats, Weakness, Fatigue, Weight Loss, Lethargy, Other Cardiovascular: Denies: Chest Pain, Palpitations, Orthopnea, Paroxysmal Noc. Dyspnea, Edema, Lt Headedness, Other Symptoms Gastrointestinal: Denies: Nausea, Vomiting, Abdominal Pain, Diarrhea, Constipation, Melena, Hematochezia, Other Symptoms Genitourinary: Denies: Dysuria, Frequency, Incontinence, Hematuria, Retention, Other Symptoms Musculoskeletal: Denies: Neck Pain, Back Pain, Shoulder Pain, Arm Pain, Hand Pain, Leg Pain, Foot Pain, Joint Pain, Muscle Pain, Spasms, Other Symptoms Neurological: Denies: Weakness, Numbness, Incoordination, Change in speech, Confusion, Seizures, Other Symptoms Objective Physical Examination General Exam: Positive: Alert, Cooperative Neck Exam: Positive: Supple Chest Exam: Positive: Clear to auscultation, Normal air movement Heart Exam: Positive: Rate Normal Abdomen Exam: Positive: Normal bowel sounds, Soft Extremity Exam: Positive: Normal pulses Skin Exam: Positive: Nl turgor and temperature Assessment /Plan Problems (1) Dementia Status: Chronic Problem Text: Very advance Dementia waxing and wanning trend improved with seroquel 12.5 mg bid for sun-downing symptoms Supporative care Artificial tears for dry eyes. (2) Delirium due to another medical condition, acute, hypoactive Status: Resolved Problem Text: Hypoactive delirium most likely secondary to UTI Continue Cain care for urinary retention, will try to Dc cain in few days IVF NS at 70cc/hr urine cultures positive for aerococcus: anti bx switched to Zosyn Add seroquel 12.5 mg bid with PRN meds for agitation Supporative care Possible transfer to SNF once bed available (3) Urinary retention Status: Acute Problem Text: most likely secondary to delirium and UTI Will continue cain support till, uti is resolved then will try again to give him a voiding trial to DC cain Flomax 0.4 mg q hs (4) UTI (urinary tract infection) Status: Acute Problem Text: IV Zosyn Aerococcus positivee in urine cultures (5) Multiple falls Status: Acute Problem Text: repeat CXR, thoracic and lumbar spine XRS were reviewd by me and did not see any FX , official reports are still pending Re-consult PT to get pt OOB to avoid Decub ulcers or DVT Discussed with pts daughter at bedside, agreed with plan to get him transfered to rehab facility with experience in handling dementia patients. Plan/VTE VTE Prophylaxis Ordered?: Yes Plan Diet: Continue Current Activity: Continue Current Therapy: PT, OT, Home Safety Eval Anticipated Discharge: Assisted Living VS, I&O, 24H, Fishbone Vital Signs/I&O Vital Signs Date Time Temp Pulse Resp B/P (MAP) Pulse Ox O2 Delivery O2 Flow Rate FiO2 12/16/19 08:43 60 134/69 12/16/19 06:00 98.2 16 95 Room Air I&O- Last 24 Hours up to 6 AM 12/16/19 06:00 Intake Total 2540 ml Output Total 1500 ml Balance 1040 ml Laboratory Data Microbiology Microbiology 12/10/19 Urine Culture - Final, Complete Aerococcus Urinae DEBORAH STANTON MD Dec 16, 2019 11:24
[2019-12-16] MEDS: ACETAMINOPHEN TAB 650MG DOSE (2X325MG) PO PRN (12:47)
[2019-12-16 14:00] VITALS: BP 132/62
[2019-12-16] MEDS: IPRATROPIUM 0.5MG/ALBUTEROL 2.5MG INH SOL UD 3ML (DUONEB) NEB PRN (19:39)
[2019-12-16 22:00] VITALS: BP 161/71
[2019-12-16] MEDS: ASPIRIN ENTERIC 325 MG TAB PO SCH (22:05)
[2019-12-16] MEDS: TAMSULOSIN 0.4 MG CAP PO SCH (22:06)
[2019-12-16] MEDS: RAMELTEON 8 MG TAB (ROZEREM) PO SCH (22:06)
[2019-12-16] MEDS: ATORVASTATIN 20 MG TAB PO SCH (22:06)
[2019-12-17] MEDS: PIPERACILLIN/TAZOBACTAM SOD 3.375 GM in D5W MINI-BAG PLUS 50 ML IV SCH ×5 (00:14→23:29)
[2019-12-17] MEDS: D5W/0.45% SODIUM CHLORIDE 1,000 ML IV SCH (05:21)
[2019-12-17 06:00] VITALS: BP 133/56
[2019-12-17] MEDS: HumaLOG INSULIN (NovoLOG) PER UNIT SC SCH ×5 (06:00→20:02)
[2019-12-17] MEDS: ACETYLCYSTEINE 20% 4 ML VIAL (200MG/ML) INH SCH ×2 (08:00→19:27)
[2019-12-17] MEDS: ENOXAPARIN 30MG/0.3ML SYRINGE (J1650 PER 10MG) SC SCH (10:16)
[2019-12-17] MEDS: FERROUS SULFATE 325MG TAB PO SCH (10:17)
[2019-12-17] MEDS: CitaloPRAM (CeleXA) 20 MG TAB PO SCH (10:17)
[2019-12-17] MEDS: LEVEMIR (INSULIN DETEMIR) 1 UNITS/0.01ML SC SCH (10:17)
[2019-12-17] MEDS: QUEtiapine FUMARATE 12.5 MG HALF-TAB PO SCH ×2 (10:17→20:15)
[2019-12-17] MEDS: PANTOPRAZOLE 40MG TAB (PROTONIX) PO SCH (10:17)
[2019-12-17] MEDS: VITAMIN D 1,000 INTERNATIONAL UNITS TABLET PO SCH (10:18)
[2019-12-17] MEDS: ASCORBIC ACID 500 MG TAB PO SCH (10:18)
[2019-12-17] MEDS: amLODIPine 5 MG TAB PO SCH (10:21)
[2019-12-17] MEDS: lisinopriL 10 MG TAB PO SCH (10:21)
[2019-12-17] MEDS: POLYVINYL ALCOHOL OPHTH SOLN 15 ML(LIQUITEARS) OU SCH ×4 (10:21→20:16)
--- NOTE | 2019-12-17 11:31 | IPNPDOC ---
Subjective Date Seen The patient was seen on 12/17/19. Subjective Chief Complaint/HPI no new complaints, very pleasant today General: Reports: ROS Unobtainable Objective Physical Examination Chest Exam: Positive: Clear to auscultation, Normal air movement Heart Exam: Positive: Rate Normal Abdomen Exam: Positive: Normal bowel sounds, Soft Extremity Exam: Positive: Normal pulses Skin Exam: Positive: Nl turgor and temperature Assessment /Plan Problems (1) Dementia Status: Chronic Problem Text: Very advance Dementia but improved behaviour with meds waxing and wanning trend improved with seroquel 12.5 mg bid for sun-downing symptoms Supporative care Transfer to SNF once bed available Artificial tears for dry eyes. (2) Delirium due to another medical condition, acute, hypoactive Status: Resolved Problem Text: Hypoactive delirium most likely secondary to UTI Continue Cain care for urinary retention, will try to Dc cain in few days D51/2 NS at 70 cc/hr urine cultures positive for aerococcus: anti bx switched to Zosyn seroquel 12.5 mg bid with PRN meds for agitation Supporative care Possible transfer to SNF once bed available (3) Urinary retention Status: Acute Problem Text: most likely secondary to delirium and UTI Will continue cain support till, uti is resolved then will try again to give him a voiding trial to DC cain Flomax 0.4 mg q hs (4) UTI (urinary tract infection) Status: Acute Problem Text: IV Zosyn Aerococcus positivee in urine cultures (5) Multiple falls Status: Acute Problem Text: repeat CXR, thoracic and lumbar spine XRS were reviewd by me and did not see any FX , official reports are still pending Re-consult PT to get pt OOB to avoid Decub ulcers or DVT Discussed with pts daughter at bedside, agreed with plan to get him transfered to rehab facility with experience in handling dementia patients. Plan/VTE VTE Prophylaxis Ordered?: Yes Plan Diet: Continue Current Activity: Continue Current Therapy: PT, OT, Home Safety Eval Anticipated Discharge: Assisted Living VS, I&O, 24H, Fishbone Vital Signs/I&O Vital Signs Date Time Temp Pulse Resp B/P (MAP) Pulse Ox O2 Delivery O2 Flow Rate FiO2 12/17/19 10:21 69 141/66 12/17/19 06:00 97.8 19 96 Room Air I&O- Last 24 Hours up to 6 AM 12/17/19 06:00 Intake Total 2490 ml Output Total 2000 ml Balance 490 ml Laboratory Data Microbiology Microbiology 12/10/19 Urine Culture - Final, Complete Aerococcus Urinae DEBORAH STANTON MD Dec 17, 2019 11:31
[2019-12-17 14:00] VITALS: BP 119/65
[2019-12-17] MEDS: ASPIRIN ENTERIC 325 MG TAB PO SCH (20:15)
[2019-12-17] MEDS: TAMSULOSIN 0.4 MG CAP PO SCH (20:15)
[2019-12-17] MEDS: RAMELTEON 8 MG TAB (ROZEREM) PO SCH (20:15)
[2019-12-17] MEDS: ATORVASTATIN 20 MG TAB PO SCH (20:15)
[2019-12-17] MEDS: ACETAMINOPHEN TAB 650MG DOSE (2X325MG) PO PRN (20:16)
[2019-12-17] MEDS: DOCUSATE SODIUM 100 MG CAP PO PRN (20:16)
[2019-12-17 22:00] VITALS: BP 113/71
[2019-12-18 06:00] VITALS: BP 121/77
[2019-12-18] MEDS: AMOXICILLIN 500 MG CAP PO SCH ×3 (06:23→20:38)
[2019-12-18 06:29] LABS: BASO # 0.1 10^3/uL (0.0-0.2); BASO % 0.7 % (0.0-1.0); EOS # 0.4 10^3/uL (0.0-0.5); HEMATOCRIT 41.1 % (42.0-52.0); HEMOGLOBIN 13.8 g/dl (13.5-17.5); LYMPH # 2.7 10^3/uL (1.5-5.0); LYMPH % 29.7 % (24.0-44.0); MEAN CORPUSCULAR HEMOGLOBIN 30.7 pg (27.0-33.0); MEAN CORPUSCULAR HGB CONC 33.6 g/dl (32.0-36.5); MEAN CORPUSCULAR VOLUME 91.5 fl (80.0-96.0); MONO # 0.8 10^3/uL (0.0-0.8); MONO % 8.8 % (0.0-5.0); NEUTROPHILS # 5.1 10^3/uL (1.5-8.5); PLATELET COUNT, AUTOMATED 309 10^3/uL (150-450); RED BLOOD COUNT 4.49 10^6/uL (4.30-6.10); WHITE BLOOD COUNT 9.1 10^3/uL (4.0-10.0)
[2019-12-18 07:00] LABS: ALBUMIN 2.2 GM/DL (3.2-5.2); ALT/SGPT 37 U/L (12-78); BILIRUBIN,TOTAL 0.5 MG/DL (0.2-1.0); BLOOD UREA NITROGEN 8 MG/DL (7-18); CALCIUM LEVEL 8.3 MG/DL (8.8-10.2); CARBON DIOXIDE LEVEL 29 MEQ/L (21-32); CHLORIDE LEVEL 113 MEQ/L (98-107); CREATININE FOR GFR 0.75 MG/DL (0.70-1.30); GLOMERULAR FILTRATION RATE > 60.0 (>35); GLUCOSE, FASTING 83 MG/DL (70-100); MAGNESIUM LEVEL 1.8 MG/DL (1.8-2.4); POTASSIUM SERUM 3.8 MEQ/L (3.5-5.1); SODIUM LEVEL 147 MEQ/L (136-145); TOTAL PROTEIN 5.4 GM/DL (6.4-8.2)
[2019-12-18] MEDS: ACETYLCYSTEINE 20% 4 ML VIAL (200MG/ML) INH SCH ×2 (07:11→20:00)
[2019-12-18] MEDS: HumaLOG INSULIN (NovoLOG) PER UNIT SC SCH ×4 (07:30→20:39)
[2019-12-18] MEDS: FERROUS SULFATE 325MG TAB PO SCH ×2 (09:00→09:57)
[2019-12-18] MEDS: CitaloPRAM (CeleXA) 20 MG TAB PO SCH ×2 (09:57→10:57)
[2019-12-18] MEDS: QUEtiapine FUMARATE 12.5 MG HALF-TAB PO SCH ×3 (09:57→20:38)
[2019-12-18] MEDS: PANTOPRAZOLE 40MG TAB (PROTONIX) PO SCH ×2 (09:57→10:58)
[2019-12-18] MEDS: VITAMIN D 1,000 INTERNATIONAL UNITS TABLET PO SCH ×2 (09:57→10:58)
[2019-12-18] MEDS: ASCORBIC ACID 500 MG TAB PO SCH ×2 (09:57→10:58)
[2019-12-18] MEDS: LEVEMIR (INSULIN DETEMIR) 1 UNITS/0.01ML SC SCH ×2 (10:05→10:58)
[2019-12-18] MEDS: ENOXAPARIN 30MG/0.3ML SYRINGE (J1650 PER 10MG) SC SCH (10:06)
[2019-12-18] MEDS: amLODIPine 5 MG TAB PO SCH ×2 (10:06→10:57)
[2019-12-18] MEDS: POLYVINYL ALCOHOL OPHTH SOLN 15 ML(LIQUITEARS) OU SCH ×4 (10:07→20:39)
[2019-12-18] MEDS: lisinopriL 10 MG TAB PO SCH ×2 (10:07→10:58)
[2019-12-18 14:00] VITALS: BP 128/60
[2019-12-18] MEDS: ASPIRIN ENTERIC 325 MG TAB PO SCH (20:38)
[2019-12-18] MEDS: ATORVASTATIN 20 MG TAB PO SCH (20:38)
[2019-12-18] MEDS: TAMSULOSIN 0.4 MG CAP PO SCH (20:38)
[2019-12-18] MEDS: RAMELTEON 8 MG TAB (ROZEREM) PO SCH (20:38)
[2019-12-18] MEDS: NICOTINE 7 MG/24 HR TRANSDERMAL TD SCH (20:39)
[2019-12-18 22:00] VITALS: BP 168/65
[2019-12-19 04:00] VITALS: BP 164/66
[2019-12-19] MEDS: AMOXICILLIN 500 MG CAP PO SCH ×3 (05:27→21:23)
[2019-12-19] MEDS: HumaLOG INSULIN (NovoLOG) PER UNIT SC SCH ×4 (07:30→21:00)
[2019-12-19] MEDS: ACETYLCYSTEINE 20% 4 ML VIAL (200MG/ML) INH SCH ×2 (08:00→20:00)
[2019-12-19] MEDS: VITAMIN D 1,000 INTERNATIONAL UNITS TABLET PO SCH (08:34)
[2019-12-19] MEDS: ENOXAPARIN 30MG/0.3ML SYRINGE (J1650 PER 10MG) SC SCH (08:34)
[2019-12-19] MEDS: CitaloPRAM (CeleXA) 20 MG TAB PO SCH (08:35)
[2019-12-19] MEDS: PANTOPRAZOLE 40MG TAB (PROTONIX) PO SCH (08:36)
[2019-12-19] MEDS: ASCORBIC ACID 500 MG TAB PO SCH (08:36)
[2019-12-19] MEDS: FERROUS SULFATE 325MG TAB PO SCH (08:37)
[2019-12-19] MEDS: lisinopriL 10 MG TAB PO SCH (08:56)
[2019-12-19] MEDS: amLODIPine 5 MG TAB PO SCH (08:56)
[2019-12-19] MEDS: LEVEMIR (INSULIN DETEMIR) 1 UNITS/0.01ML SC SCH ×2 (08:57→12:39)
[2019-12-19] MEDS: POLYVINYL ALCOHOL OPHTH SOLN 15 ML(LIQUITEARS) OU SCH ×4 (09:02→21:23)
[2019-12-19] MEDS: QUEtiapine FUMARATE 12.5 MG HALF-TAB PO SCH ×2 (09:02→21:23)
[2019-12-19] MEDS: RAMELTEON 8 MG TAB (ROZEREM) PO SCH (21:23)
[2019-12-19] MEDS: NICOTINE 7 MG/24 HR TRANSDERMAL TD SCH (21:23)
[2019-12-19] MEDS: TAMSULOSIN 0.4 MG CAP PO SCH (21:23)
[2019-12-19] MEDS: ASPIRIN ENTERIC 325 MG TAB PO SCH (21:23)
[2019-12-19] MEDS: ATORVASTATIN 20 MG TAB PO SCH (21:23)
[2019-12-20] MEDS: AMOXICILLIN 500 MG CAP PO SCH ×4 (05:13→22:13)
[2019-12-20 06:00] VITALS: BP 142/88
[2019-12-20] MEDS: ACETYLCYSTEINE 20% 4 ML VIAL (200MG/ML) INH SCH ×2 (07:19→20:00)
[2019-12-20] MEDS: HumaLOG INSULIN (NovoLOG) PER UNIT SC SCH ×4 (07:30→21:00)
[2019-12-20] MEDS: CitaloPRAM (CeleXA) 20 MG TAB PO SCH (09:00)
[2019-12-20] MEDS: VITAMIN D 1,000 INTERNATIONAL UNITS TABLET PO SCH (09:00)
[2019-12-20] MEDS: FERROUS SULFATE 325MG TAB PO SCH (09:00)
[2019-12-20] MEDS: ENOXAPARIN 30MG/0.3ML SYRINGE (J1650 PER 10MG) SC SCH ×2 (09:00→16:58)
[2019-12-20] MEDS: amLODIPine 5 MG TAB PO SCH (09:00)
[2019-12-20] MEDS: LEVEMIR (INSULIN DETEMIR) 1 UNITS/0.01ML SC SCH (09:00)
[2019-12-20] MEDS: ASCORBIC ACID 500 MG TAB PO SCH (09:00)
[2019-12-20] MEDS: POLYVINYL ALCOHOL OPHTH SOLN 15 ML(LIQUITEARS) OU SCH ×4 (09:00→22:14)
[2019-12-20] MEDS: QUEtiapine FUMARATE 12.5 MG HALF-TAB PO SCH ×2 (09:00→22:13)
[2019-12-20] MEDS: lisinopriL 10 MG TAB PO SCH (09:00)
[2019-12-20] MEDS: PANTOPRAZOLE 40MG TAB (PROTONIX) PO SCH (09:00)
[2019-12-20] MEDS: RAMELTEON 8 MG TAB (ROZEREM) PO SCH (22:12)
[2019-12-20] MEDS: NICOTINE 7 MG/24 HR TRANSDERMAL TD SCH (22:12)
[2019-12-20] MEDS: ASPIRIN ENTERIC 325 MG TAB PO SCH (22:13)
[2019-12-20] MEDS: ATORVASTATIN 20 MG TAB PO SCH (22:13)
[2019-12-20] MEDS: TAMSULOSIN 0.4 MG CAP PO SCH (22:13)
[2019-12-21 06:00] VITALS: BP 142/68
[2019-12-21] MEDS: AMOXICILLIN 500 MG CAP PO SCH ×3 (06:20→21:31)
[2019-12-21] MEDS: ACETYLCYSTEINE 20% 4 ML VIAL (200MG/ML) INH SCH (08:00)
[2019-12-21] MEDS: CitaloPRAM (CeleXA) 20 MG TAB PO SCH (08:13)
[2019-12-21] MEDS: QUEtiapine FUMARATE 12.5 MG HALF-TAB PO SCH ×2 (08:13→21:31)
[2019-12-21] MEDS: PANTOPRAZOLE 40MG TAB (PROTONIX) PO SCH (08:13)
[2019-12-21] MEDS: VITAMIN D 1,000 INTERNATIONAL UNITS TABLET PO SCH (08:13)
[2019-12-21] MEDS: FERROUS SULFATE 325MG TAB PO SCH (08:13)
[2019-12-21] MEDS: ASCORBIC ACID 500 MG TAB PO SCH (08:13)
[2019-12-21] MEDS: lisinopriL 10 MG TAB PO SCH (08:13)
[2019-12-21] MEDS: POLYVINYL ALCOHOL OPHTH SOLN 15 ML(LIQUITEARS) OU SCH ×4 (08:14→21:32)
[2019-12-21] MEDS: ENOXAPARIN 30MG/0.3ML SYRINGE (J1650 PER 10MG) SC SCH (08:14)
[2019-12-21] MEDS: amLODIPine 5 MG TAB PO SCH (08:14)
[2019-12-21] MEDS: HumaLOG INSULIN (NovoLOG) PER UNIT SC SCH ×4 (10:00→20:36)
[2019-12-21] MEDS: LEVEMIR (INSULIN DETEMIR) 1 UNITS/0.01ML SC SCH (10:01)
[2019-12-21] MEDS ORDERED: OLANZapine INTRAMUSCULAR 10MG VIAL IM ONE (13:00)
[2019-12-21] MEDS: ATORVASTATIN 20 MG TAB PO SCH (21:31)
[2019-12-21] MEDS: TAMSULOSIN 0.4 MG CAP PO SCH (21:31)
[2019-12-21] MEDS: ASPIRIN ENTERIC 325 MG TAB PO SCH (21:31)
[2019-12-21] MEDS: RAMELTEON 8 MG TAB (ROZEREM) PO SCH (21:31)
[2019-12-21] MEDS: NICOTINE 7 MG/24 HR TRANSDERMAL TD SCH (21:32)
[2019-12-21] MEDS: OLANZapine INTRAMUSCULAR 10MG VIAL IM PRN (23:09)
[2019-12-22] MEDS: AMOXICILLIN 500 MG CAP PO SCH ×2 (10:44→17:59)
[2019-12-22] MEDS: HumaLOG INSULIN (NovoLOG) PER UNIT SC SCH ×4 (10:45→21:00)
[2019-12-22] MEDS: POLYVINYL ALCOHOL OPHTH SOLN 15 ML(LIQUITEARS) OU SCH ×4 (10:45→21:52)
[2019-12-22] MEDS: LEVEMIR (INSULIN DETEMIR) 1 UNITS/0.01ML SC SCH (13:28)
[2019-12-22] MEDS: ENOXAPARIN 30MG/0.3ML SYRINGE (J1650 PER 10MG) SC SCH (17:06)
[2019-12-22] MEDS: QUEtiapine FUMARATE 12.5 MG HALF-TAB PO SCH ×2 (17:44→21:51)
[2019-12-22] MEDS: CitaloPRAM (CeleXA) 20 MG TAB PO SCH (17:49)
[2019-12-22] MEDS: FERROUS SULFATE 325MG TAB PO SCH (17:50)
[2019-12-22] MEDS: amLODIPine 5 MG TAB PO SCH (17:50)
[2019-12-22] MEDS: lisinopriL 10 MG TAB PO SCH (17:58)
[2019-12-22] MEDS: PANTOPRAZOLE 40MG TAB (PROTONIX) PO SCH (17:58)
[2019-12-22] MEDS: VITAMIN D 1,000 INTERNATIONAL UNITS TABLET PO SCH (17:59)
[2019-12-22] MEDS: ASCORBIC ACID 500 MG TAB PO SCH (17:59)
--- NOTE | 2019-12-22 19:01 | IPNPDOC ---
Text Note Date of Service The patient was seen on 12/22/19. NOTE Subjective: Patient very somnolent today , difficult to arouse. He was resisting when i tried to open his eyes to check his pupils. He was squeezing his eyes tight. He got 1 dose of olanzapine im last night. As per nurses he has had no po intake today no no po meds could be administered. Will get labs for any electrolyte imbalance. Physical Examination Vitals: as below General: Patient somnolent difficult to arouse today, laying in bed in no discomfort. Chest Exam: Positive: Clear to auscultation, Normal air movement Heart Exam: Positive: S1, S2 normal, Rate Normal, No rub, murmur or gallop Abdomen Exam: Positive: Normal bowel sounds, Soft Extremity Exam: Positive: No edema, No cyanosis or clubbing. Skin Exam: Positive: Nl turgor and temperature Neurology: patient is deeply sedated. Assessment /Plan: Patient is 84 year old male with severe dementia, history of recurrent falls, CAD/ CABG, DM, HTN, COPD was brought into the ER due to recurrent falls with concern for home safety by family, reportedly also poor diabetes control. Patient himself was not aware of why he was in hospital. At baseline says a few words, smiles and oriented to his name only. He was found to have UTI with delirium on the back ground of severe dementia. UTI is being treated. His delirium has resolved. He is awaiting NH placement. Somnolence today probably due to olanzapine. will check labs. Dementia with behavioral abnormalities. improved behavior with meds. improved with seroquel 12.5 mg bid for sun-downing symptoms, olanzapine PRN. On celexa and ramelteon. Artificial tears for dry eyes. UTI Urine cultures positive for aerococcus: anti bx switched to Amoxycillin from piperacillin Recived antibiotics from 12/13 will dc now. Recurrent Urinary retention failed trial of void recently Will continue cain for now Flomax 0.4 mg q hs will give trial of void after 2 weeks of flomax. Multiple falls due to gait imbalance and dementia will be going to ID Diabetes continue levemir and lispro SS Hypertension Lisinopril and amlodipine. Hyperlipidemia statin DIspo: ID when bed available. VS,Fishbone, I+O VS, Fishbone, I+O Vital Signs Date Time Temp Pulse Resp B/P (MAP) Pulse Ox O2 Delivery O2 Flow Rate FiO2 12/22/19 06:00 98.9 62 18 97 12/21/19 08:13 178/85 12/21/19 06:00 Room Air I&O- Last 24 Hours up to 6 AM 12/22/19 07:00 Intake Total 730 ml Output Total 1125 ml Balance -395 ml NAHEED PRUITT MD Dec 22, 2019 19:01
[2019-12-22 19:19] LABS: BASO # 0.1 10^3/uL (0.0-0.2); BASO % 0.7 % (0.0-1.0); EOS # 0.2 10^3/uL (0.0-0.5); EOS % 2.9 % (0.0-3.0); HEMATOCRIT 44.4 % (42.0-52.0); HEMOGLOBIN 14.6 g/dl (13.5-17.5); LYMPH % 29.5 % (24.0-44.0); MEAN CORPUSCULAR HEMOGLOBIN 30.3 pg (27.0-33.0); MEAN CORPUSCULAR HGB CONC 32.9 g/dl (32.0-36.5); MEAN CORPUSCULAR VOLUME 92.1 fl (80.0-96.0); MONO # 0.6 10^3/uL (0.0-0.8); NEUTROPHILS % 58.6 % (36.0-66.0); PLATELET COUNT, AUTOMATED 302 10^3/uL (150-450); RED BLOOD COUNT 4.82 10^6/uL (4.30-6.10); WHITE BLOOD COUNT 6.9 10^3/uL (4.0-10.0)
[2019-12-22 19:33] LABS: BLOOD UREA NITROGEN 13 MG/DL (7-18); CALCIUM LEVEL 8.6 MG/DL (8.8-10.2); CARBON DIOXIDE LEVEL 29 MEQ/L (21-32); CHLORIDE LEVEL 113 MEQ/L (98-107); CREATININE FOR GFR 0.76 MG/DL (0.70-1.30); GLOMERULAR FILTRATION RATE > 60.0 (>35); GLUCOSE, FASTING 147 MG/DL (70-100); POTASSIUM SERUM 3.8 MEQ/L (3.5-5.1); SODIUM LEVEL 146 MEQ/L (136-145)
[2019-12-22] MEDS: ATORVASTATIN 20 MG TAB PO SCH (21:51)
[2019-12-22] MEDS: ASPIRIN ENTERIC 325 MG TAB PO SCH (21:51)
[2019-12-22] MEDS: RAMELTEON 8 MG TAB (ROZEREM) PO SCH (21:51)
[2019-12-22] MEDS: TAMSULOSIN 0.4 MG CAP PO SCH (21:51)
[2019-12-22] MEDS: NICOTINE 7 MG/24 HR TRANSDERMAL TD SCH (21:52)
[2019-12-23 00:27] VITALS: BP 130/60
[2019-12-23 06:00] VITALS: BP 129/60
[2019-12-23 06:26] LABS: HEMATOCRIT 44.1 % (42.0-52.0); HEMOGLOBIN 14.3 g/dl (13.5-17.5); MEAN CORPUSCULAR HEMOGLOBIN 30.4 pg (27.0-33.0); MEAN CORPUSCULAR HGB CONC 32.4 g/dl (32.0-36.5); MEAN CORPUSCULAR VOLUME 93.8 fl (80.0-96.0); PLATELET COUNT, AUTOMATED 301 10^3/uL (150-450)
[2019-12-23] MEDS: LEVEMIR (INSULIN DETEMIR) 1 UNITS/0.01ML SC SCH (08:08)
[2019-12-23] MEDS: ENOXAPARIN 30MG/0.3ML SYRINGE (J1650 PER 10MG) SC SCH (08:08)
[2019-12-23] MEDS: HumaLOG INSULIN (NovoLOG) PER UNIT SC SCH ×4 (08:08→21:00)
[2019-12-23] MEDS: PANTOPRAZOLE 40MG TAB (PROTONIX) PO SCH (08:09)
[2019-12-23] MEDS: VITAMIN D 1,000 INTERNATIONAL UNITS TABLET PO SCH (08:09)
[2019-12-23] MEDS: ASCORBIC ACID 500 MG TAB PO SCH (08:09)
[2019-12-23] MEDS: CitaloPRAM (CeleXA) 20 MG TAB PO SCH (08:09)
[2019-12-23] MEDS: FERROUS SULFATE 325MG TAB PO SCH (08:09)
[2019-12-23] MEDS: amLODIPine 5 MG TAB PO SCH (08:10)
[2019-12-23] MEDS: lisinopriL 10 MG TAB PO SCH (08:11)
[2019-12-23] MEDS: QUEtiapine FUMARATE 12.5 MG HALF-TAB PO SCH ×2 (09:36→21:00)
[2019-12-23] MEDS: POLYVINYL ALCOHOL OPHTH SOLN 15 ML(LIQUITEARS) OU SCH ×4 (10:22→22:15)
[2019-12-23] MEDS: NICOTINE 7 MG/24 HR TRANSDERMAL TD SCH (20:49)
[2019-12-23] MEDS: ASPIRIN ENTERIC 325 MG TAB PO SCH (22:14)
[2019-12-23] MEDS: TAMSULOSIN 0.4 MG CAP PO SCH (22:15)
[2019-12-23] MEDS: ATORVASTATIN 20 MG TAB PO SCH (22:15)
[2019-12-23] MEDS: RAMELTEON 8 MG TAB (ROZEREM) PO SCH (22:15)
[2019-12-24 06:00] VITALS: BP 139/70
[2019-12-24] MEDS: ENOXAPARIN 30MG/0.3ML SYRINGE (J1650 PER 10MG) SC SCH (08:43)
[2019-12-24] MEDS: LEVEMIR (INSULIN DETEMIR) 1 UNITS/0.01ML SC SCH (08:43)
[2019-12-24] MEDS: ASCORBIC ACID 500 MG TAB PO SCH (08:44)
[2019-12-24] MEDS: amLODIPine 5 MG TAB PO SCH (08:44)
[2019-12-24] MEDS: VITAMIN D 1,000 INTERNATIONAL UNITS TABLET PO SCH (08:44)
[2019-12-24] MEDS: PANTOPRAZOLE 40MG TAB (PROTONIX) PO SCH (08:44)
[2019-12-24] MEDS: FERROUS SULFATE 325MG TAB PO SCH (08:44)
[2019-12-24] MEDS: QUEtiapine FUMARATE 12.5 MG HALF-TAB PO SCH ×2 (08:44→22:17)
[2019-12-24] MEDS: HumaLOG INSULIN (NovoLOG) PER UNIT SC SCH ×4 (08:44→21:00)
[2019-12-24] MEDS: POLYVINYL ALCOHOL OPHTH SOLN 15 ML(LIQUITEARS) OU SCH ×4 (08:45→22:18)
[2019-12-24] MEDS: CitaloPRAM (CeleXA) 20 MG TAB PO SCH (08:45)
[2019-12-24] MEDS: lisinopriL 10 MG TAB PO SCH (08:45)
[2019-12-24] MEDS: TAMSULOSIN 0.4 MG CAP PO SCH (22:17)
[2019-12-24] MEDS: ATORVASTATIN 20 MG TAB PO SCH (22:17)
[2019-12-24] MEDS: ASPIRIN ENTERIC 325 MG TAB PO SCH (22:17)
[2019-12-24] MEDS: RAMELTEON 8 MG TAB (ROZEREM) PO SCH (22:17)
[2019-12-24] MEDS: NICOTINE 7 MG/24 HR TRANSDERMAL TD SCH (22:17)
[2019-12-25 06:00] VITALS: BP 137/67
[2019-12-25] MEDS: IPRATROPIUM 0.5MG/ALBUTEROL 2.5MG INH SOL UD 3ML (DUONEB) NEB PRN (08:56)
[2019-12-25] MEDS: amLODIPine 5 MG TAB PO SCH (09:00)
[2019-12-25] MEDS: lisinopriL 10 MG TAB PO SCH (09:00)
[2019-12-25] MEDS: TAMSULOSIN 0.4 MG CAP PO SCH (09:00)
[2019-12-25] MEDS: ENOXAPARIN 30MG/0.3ML SYRINGE (J1650 PER 10MG) SC SCH (09:08)
[2019-12-25] MEDS: LEVEMIR (INSULIN DETEMIR) 1 UNITS/0.01ML SC SCH (09:08)
[2019-12-25] MEDS: HumaLOG INSULIN (NovoLOG) PER UNIT SC SCH ×4 (09:09→21:00)
[2019-12-25] MEDS: POLYVINYL ALCOHOL OPHTH SOLN 15 ML(LIQUITEARS) OU SCH ×4 (09:09→21:50)
[2019-12-25] MEDS: VITAMIN D 1,000 INTERNATIONAL UNITS TABLET PO SCH (09:10)
[2019-12-25] MEDS: QUEtiapine FUMARATE 12.5 MG HALF-TAB PO SCH ×2 (09:10→21:49)
[2019-12-25] MEDS: PANTOPRAZOLE 40MG TAB (PROTONIX) PO SCH (09:11)
[2019-12-25] MEDS: FERROUS SULFATE 325MG TAB PO SCH (09:11)
[2019-12-25] MEDS: ASCORBIC ACID 500 MG TAB PO SCH (09:11)
[2019-12-25] MEDS: CitaloPRAM (CeleXA) 20 MG TAB PO SCH (09:11)
[2019-12-25] MEDS ORDERED: NS 1,000 ML IV ONE (11:45)
[2019-12-25 14:05] VITALS: BP 110/49
[2019-12-25] MEDS: ASPIRIN ENTERIC 325 MG TAB PO SCH (21:49)
[2019-12-25] MEDS: RAMELTEON 8 MG TAB (ROZEREM) PO SCH (21:49)
[2019-12-25] MEDS: ATORVASTATIN 20 MG TAB PO SCH (21:49)
[2019-12-25] MEDS: NICOTINE 7 MG/24 HR TRANSDERMAL TD SCH (21:49)
[2019-12-26 06:00] VITALS: BP 157/67
[2019-12-26] MEDS: HumaLOG INSULIN (NovoLOG) PER UNIT SC SCH ×4 (07:30→21:00)
[2019-12-26] MEDS: POLYVINYL ALCOHOL OPHTH SOLN 15 ML(LIQUITEARS) OU SCH ×4 (09:00→21:29)
[2019-12-26] MEDS: PANTOPRAZOLE 40MG TAB (PROTONIX) PO SCH (09:00)
[2019-12-26] MEDS: QUEtiapine FUMARATE 12.5 MG HALF-TAB PO SCH (09:00)
[2019-12-26] MEDS: FERROUS SULFATE 325MG TAB PO SCH (09:00)
[2019-12-26] MEDS: CitaloPRAM (CeleXA) 20 MG TAB PO SCH (09:00)
[2019-12-26] MEDS: TAMSULOSIN 0.4 MG CAP PO SCH (09:00)
[2019-12-26] MEDS: VITAMIN D 1,000 INTERNATIONAL UNITS TABLET PO SCH (09:00)
[2019-12-26] MEDS: ASCORBIC ACID 500 MG TAB PO SCH (09:00)
[2019-12-26] MEDS: ENOXAPARIN 30MG/0.3ML SYRINGE (J1650 PER 10MG) SC SCH (10:15)
[2019-12-26] MEDS: LEVEMIR (INSULIN DETEMIR) 1 UNITS/0.01ML SC SCH (10:15)
[2019-12-26 13:13] VITALS: BP 154/97
[2019-12-26] MEDS ORDERED: QUEtiapine FUMARATE 12.5 MG HALF-TAB PO SCH (21:00)
[2019-12-26] MEDS: ASPIRIN ENTERIC 325 MG TAB PO SCH (21:28)
[2019-12-26] MEDS: NICOTINE 7 MG/24 HR TRANSDERMAL TD SCH (21:29)
[2019-12-26] MEDS: ATORVASTATIN 20 MG TAB PO SCH (21:29)
[2019-12-27 06:00] VITALS: BP 148/71
[2019-12-27] MEDS: LEVEMIR (INSULIN DETEMIR) 1 UNITS/0.01ML SC SCH (09:35)
[2019-12-27] MEDS: HumaLOG INSULIN (NovoLOG) PER UNIT SC SCH ×4 (09:35→21:00)
[2019-12-27] MEDS: QUEtiapine FUMARATE 12.5 MG HALF-TAB PO SCH ×2 (09:36→18:54)
[2019-12-27] MEDS: PANTOPRAZOLE 40MG TAB (PROTONIX) PO SCH (09:36)
[2019-12-27] MEDS: ASCORBIC ACID 500 MG TAB PO SCH (09:36)
[2019-12-27] MEDS: FERROUS SULFATE 325MG TAB PO SCH (09:36)
[2019-12-27] MEDS: VITAMIN D 1,000 INTERNATIONAL UNITS TABLET PO SCH (09:36)
[2019-12-27] MEDS: CitaloPRAM (CeleXA) 20 MG TAB PO SCH (09:36)
[2019-12-27] MEDS: ENOXAPARIN 30MG/0.3ML SYRINGE (J1650 PER 10MG) SC SCH (09:36)
[2019-12-27] MEDS: TAMSULOSIN 0.4 MG CAP PO SCH (09:36)
[2019-12-27] MEDS: POLYVINYL ALCOHOL OPHTH SOLN 15 ML(LIQUITEARS) OU SCH ×4 (09:37→21:49)
[2019-12-27] MEDS: OLANZapine INTRAMUSCULAR 10MG VIAL IM PRN (20:17)
[2019-12-27] MEDS: ASPIRIN ENTERIC 325 MG TAB PO SCH ×2 (21:00→21:47)
[2019-12-27] MEDS: ATORVASTATIN 20 MG TAB PO SCH (21:47)
[2019-12-27] MEDS: NICOTINE 7 MG/24 HR TRANSDERMAL TD SCH (21:49)
[2019-12-28 06:00] VITALS: BP 151/80
[2019-12-28 06:46] LABS: HEMATOCRIT 43.1 % (42.0-52.0); HEMOGLOBIN 14.3 g/dl (13.5-17.5); MEAN CORPUSCULAR HEMOGLOBIN 30.7 pg (27.0-33.0); MEAN CORPUSCULAR HGB CONC 33.2 g/dl (32.0-36.5); MEAN CORPUSCULAR VOLUME 92.5 fl (80.0-96.0); PLATELET COUNT, AUTOMATED 235 10^3/uL (150-450); RED BLOOD COUNT 4.66 10^6/uL (4.30-6.10); WHITE BLOOD COUNT 8.7 10^3/uL (4.0-10.0)
[2019-12-28 07:05] LABS: BLOOD UREA NITROGEN 12 MG/DL (7-18); CALCIUM LEVEL 9.2 MG/DL (8.8-10.2); CARBON DIOXIDE LEVEL 30 MEQ/L (21-32); CHLORIDE LEVEL 113 MEQ/L (98-107); CREATININE FOR GFR 0.76 MG/DL (0.70-1.30); GLOMERULAR FILTRATION RATE > 60.0 (>35); GLUCOSE, FASTING 122 MG/DL (70-100); POTASSIUM SERUM 5.2 MEQ/L (3.5-5.1); SODIUM LEVEL 147 MEQ/L (136-145)
[2019-12-28] MEDS: HumaLOG INSULIN (NovoLOG) PER UNIT SC SCH ×4 (08:32→20:42)
[2019-12-28] MEDS: LEVEMIR (INSULIN DETEMIR) 1 UNITS/0.01ML SC SCH (08:32)
[2019-12-28] MEDS: VITAMIN D 1,000 INTERNATIONAL UNITS TABLET PO SCH ×2 (08:33→09:00)
[2019-12-28] MEDS: FERROUS SULFATE 325MG TAB PO SCH ×2 (08:33→09:00)
[2019-12-28] MEDS: ENOXAPARIN 30MG/0.3ML SYRINGE (J1650 PER 10MG) SC SCH (08:33)
[2019-12-28] MEDS: CitaloPRAM (CeleXA) 20 MG TAB PO SCH ×2 (08:33→09:00)
[2019-12-28] MEDS: PANTOPRAZOLE 40MG TAB (PROTONIX) PO SCH ×2 (08:33→09:00)
[2019-12-28] MEDS: QUEtiapine FUMARATE 12.5 MG HALF-TAB PO SCH ×3 (08:33→17:47)
[2019-12-28] MEDS: TAMSULOSIN 0.4 MG CAP PO SCH ×2 (08:33→09:00)
[2019-12-28] MEDS: POLYVINYL ALCOHOL OPHTH SOLN 15 ML(LIQUITEARS) OU SCH ×5 (08:34→20:36)
[2019-12-28] MEDS: ASCORBIC ACID 500 MG TAB PO SCH (09:00)
[2019-12-28] MEDS: ATORVASTATIN 20 MG TAB PO SCH (20:39)
[2019-12-28] MEDS: ACETAMINOPHEN TAB 650MG DOSE (2X325MG) PO PRN (20:39)
[2019-12-28] MEDS: ASPIRIN ENTERIC 325 MG TAB PO SCH (20:39)
[2019-12-28] MEDS: NICOTINE 7 MG/24 HR TRANSDERMAL TD SCH (20:39)
[2019-12-28] MEDS: OLANZapine INTRAMUSCULAR 10MG VIAL IM PRN (21:22)
[2019-12-28] MEDS ORDERED: HALOPERIDOL 5MG/ML VIAL (J1630 PER 1) IM STA (22:37)
[2019-12-29 06:00] VITALS: BP 129/77
[2019-12-29] MEDS: HumaLOG INSULIN (NovoLOG) PER UNIT SC SCH ×4 (07:30→21:00)
--- NOTE | 2019-12-29 07:30 | IPNPDOC ---
Date Seen The patient was seen on 12/29/19. Progress Note SUBJECTIVE: Patient is a -year-old [RACE] [GENDER] with OBJECTIVE PHYSICAL EXAMINATION: VITAL SIGNS: Please see below. GENERAL: HEENT: CARDIOVASCULAR: . RESPIRATORY: . ABDOMINAL: EXTREMITIES: NEUROLOGICAL: PSYCHOLOGICAL: LABORATORY DATA, IMAGING STUDIES, MICROBIOLOGY: Please see below. Echocardiogram: . DVT prophylaxis ordered?: ASSESSMENT AND PLAN: Patient is 84 year old male with severe dementia, history of recurrent falls, CAD/ CABG, DM, HTN, COPD was brought into the ER due to recurrent falls with concern for home safety by family, reportedly also poor diabetes control. Patient himself was not aware of why he was in hospital. At baseline says a few words, smiles and oriented to his name only. He was found to have UTI with delirium on the back ground of severe dementia. UTI is being treated. His delirium has resolved. He is awaiting NH placement. PROBLEMS: hyperkalemia: check labs today Dementia with behavioural abnormalities - improved with medication - seroquesl 12.5 mg BID for - olanzapine prn - judicious use - celexa, remeron UTI - UCx positive aerococcus - Abx DC on 12/22/19 Urinary retention - failed trial of void on 12/21 - cain in place - flomax 0.4 mg qd - repeat trial of void 2 weeks post flomax - 01/05/20 Falls - dementia, gait imbalance - awaiting bed at [place] DM2 - levemir - ISS HTN - lisinopril - amlodipine HLD - statin DISPOSITION: [place] once bed becomes available. VS, I&O, 24H, Fishbone Vital Signs/I&O Vital Signs Date Time Temp Pulse Resp B/P (MAP) Pulse Ox O2 Delivery O2 Flow Rate FiO2 12/29/19 06:00 97.3 66 18 129/77 (94) 95 12/28/19 06:00 Room Air I&O- Last 24 Hours up to 6 AM 12/29/19 06:00 Intake Total 1020 ml Output Total 1000 ml Balance 20 ml Laboratory Data 24H LABS Laboratory Tests 2 12/28/19 10:23: Bedside Glucose (Misc Panel) 98 12/28/19 11:29: Bedside Glucose (Misc Panel) 91 12/28/19 16:34: Bedside Glucose (Misc Panel) 166H 12/28/19 20:42: Bedside Glucose (Misc Panel) 102 12/29/19 06:55: Bedside Glucose (Misc Panel) 119H ESAU TRAN MD Dec 29, 2019 07:30
[2019-12-29 08:29] LABS: HEMATOCRIT 42.1 % (42.0-52.0); MEAN CORPUSCULAR HEMOGLOBIN 30.4 pg (27.0-33.0); MEAN CORPUSCULAR HGB CONC 33.3 g/dl (32.0-36.5); MEAN CORPUSCULAR VOLUME 91.5 fl (80.0-96.0); PLATELET COUNT, AUTOMATED 209 10^3/uL (150-450); WHITE BLOOD COUNT 7.9 10^3/uL (4.0-10.0)
[2019-12-29 08:55] LABS: ALBUMIN 2.4 GM/DL (3.2-5.2); ALT/SGPT 20 U/L (12-78); BILIRUBIN,TOTAL 0.8 MG/DL (0.2-1.0); BLOOD UREA NITROGEN 14 MG/DL (7-18); CALCIUM LEVEL 8.8 MG/DL (8.8-10.2); CARBON DIOXIDE LEVEL 25 MEQ/L (21-32); CHLORIDE LEVEL 112 MEQ/L (98-107); CREATININE FOR GFR 0.64 MG/DL (0.70-1.30); GLOMERULAR FILTRATION RATE > 60.0 (>35); GLUCOSE, FASTING 121 MG/DL (70-100); MAGNESIUM LEVEL 1.8 MG/DL (1.8-2.4); PHOSPHORUS LEVEL 3.4 MG/DL (2.5-4.9); POTASSIUM SERUM 4.5 MEQ/L (3.5-5.1); SODIUM LEVEL 145 MEQ/L (136-145); TOTAL PROTEIN 5.4 GM/DL (6.4-8.2)
[2019-12-29] MEDS: QUEtiapine FUMARATE 12.5 MG HALF-TAB PO SCH ×2 (09:00→18:21)
[2019-12-29] MEDS: TAMSULOSIN 0.4 MG CAP PO SCH (09:00)
[2019-12-29] MEDS: PANTOPRAZOLE 40MG TAB (PROTONIX) PO SCH (09:00)
[2019-12-29] MEDS: LEVEMIR (INSULIN DETEMIR) 1 UNITS/0.01ML SC SCH (09:00)
[2019-12-29] MEDS: VITAMIN D 1,000 INTERNATIONAL UNITS TABLET PO SCH (09:00)
[2019-12-29] MEDS: POLYVINYL ALCOHOL OPHTH SOLN 15 ML(LIQUITEARS) OU SCH ×4 (09:00→22:36)
[2019-12-29] MEDS: ASCORBIC ACID 500 MG TAB PO SCH (09:00)
[2019-12-29] MEDS: FERROUS SULFATE 325MG TAB PO SCH (09:00)
[2019-12-29] MEDS: ENOXAPARIN 30MG/0.3ML SYRINGE (J1650 PER 10MG) SC SCH (10:00)
[2019-12-29] MEDS: CitaloPRAM (CeleXA) 20 MG TAB PO SCH (10:01)
[2019-12-29] MEDS: OLANZapine INTRAMUSCULAR 10MG VIAL IM PRN (20:17)
[2019-12-29] MEDS ORDERED: HALOPERIDOL 5MG/ML VIAL (J1630 PER 1) IM STA (20:24)
[2019-12-29] MEDS: ASPIRIN ENTERIC 325 MG TAB PO SCH (22:35)
[2019-12-29] MEDS: ATORVASTATIN 20 MG TAB PO SCH (22:35)
[2019-12-29] MEDS: NICOTINE 7 MG/24 HR TRANSDERMAL TD SCH (22:36)
[2019-12-30 06:00] VITALS: BP 137/77
[2019-12-30 08:15] VITALS: BP 115/61
[2019-12-30 08:16] VITALS: BP 112/55
[2019-12-30 08:22] VITALS: BP 130/56
[2019-12-30] MEDS: HumaLOG INSULIN (NovoLOG) PER UNIT SC SCH ×4 (08:56→20:23)
[2019-12-30] MEDS: LEVEMIR (INSULIN DETEMIR) 1 UNITS/0.01ML SC SCH (08:59)
[2019-12-30] MEDS: ENOXAPARIN 30MG/0.3ML SYRINGE (J1650 PER 10MG) SC SCH (08:59)
[2019-12-30] MEDS: VITAMIN D 1,000 INTERNATIONAL UNITS TABLET PO SCH (09:00)
[2019-12-30] MEDS: PANTOPRAZOLE 40MG TAB (PROTONIX) PO SCH (09:00)
[2019-12-30] MEDS: ASCORBIC ACID 500 MG TAB PO SCH (09:00)
[2019-12-30] MEDS: QUEtiapine FUMARATE 12.5 MG HALF-TAB PO SCH ×2 (09:00→17:47)
[2019-12-30] MEDS: POLYVINYL ALCOHOL OPHTH SOLN 15 ML(LIQUITEARS) OU SCH ×4 (09:00→20:13)
[2019-12-30] MEDS: TAMSULOSIN 0.4 MG CAP PO SCH (09:00)
[2019-12-30] MEDS: FERROUS SULFATE 325MG TAB PO SCH (09:01)
[2019-12-30] MEDS: CitaloPRAM (CeleXA) 20 MG TAB PO SCH (09:01)
--- NOTE | 2019-12-30 09:39 | ECGEPIP ---
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
--- NOTE | 2019-12-30 10:42 | IPNPDOC ---
Date Seen The patient was seen on 12/30/19. Progress Note SUBJECTIVE: Patient was seen and examined at bedside. Was called by RN, patient had been sitting on toilet (assisted by staff), had a large BM and upon standing up felt lightheaded and had an episode of pre-syncope. He had to be carried to bed by 4 staff members. On my arrival, patient started opening his eyes, and speaking. Vitals repeated, BP 135/70. SpO2 95%, HR 80, accucheck 180. OBJECTIVE PHYSICAL EXAMINATION: VITAL SIGNS: Please see below. General: somnolent, comfortable HEENT: PERRLA, EOMI, sclerae clear Neck: supple, normal ROM, no JVD Resp: lungs CTAB, no wheeze, no rales, no crackles CVS: RRR, normal S1, S2, no murmurs Abdo: soft, no masses, no hepatosplenomegaly, BS+, no rebound tenderness Extremities: no edema, pulses 2+ MSK: no joint deformities, normal ROM Neuro: no focal neuro deficits, moving all 4 extremities Psych: calm, cooperative, AAO x 0-1. Advanced Dementia LABORATORY DATA, IMAGING STUDIES, MICROBIOLOGY: Please see below. DVT prophylaxis ordered?: Y Assessment /Plan: Patient is 84 year old male with severe dementia, history of recurrent falls, CAD/ CABG, DM, HTN, COPD was brought into the ER due to recurrent falls with concern for home safety by family, reportedly also poor diabetes control. Patient himself was not aware of why he was in hospital. At baseline says a few words, smiles and oriented to his name only. He was found to have UTI with delirium on the back ground of severe dementia. UTI is treated. His delirium has resolved. He is awaiting NH placement. Pre-syncope - vasovagal - resolved, at baseline on re-exam Dementia with behavioural abnormalities - improved with medication - seroquel 12.5 mg BID for - olanzapine prn - judicious use - celexa, remeron UTI - UCx positive aerococcus - Abx DC on 12/22/19 Urinary retention - failed trial of void on 12/21 - cain in place - flomax 0.4 mg qd - repeat trial of void 2 weeks post flomax - 01/05/20 Falls - dementia, gait imbalance - awaiting bed at [place] DM2 - levemir - ISS HTN - lisinopril - amlodipine HLD - statin DISPOSITION: [place] once bed becomes available. VS, I&O, 24H, Fishbone Vital Signs/I&O Vital Signs Date Time Temp Pulse Resp B/P (MAP) Pulse Ox O2 Delivery O2 Flow Rate FiO2 12/30/19 08:22 64 130/56 (80) 100 Nasal Cannula 2.0 12/30/19 08:15 24 12/30/19 06:00 97.6 I&O- Last 24 Hours up to 6 AM 12/30/19 06:00 Intake Total 660 ml Output Total 1550 ml Balance -890 ml Laboratory Data 24H LABS Laboratory Tests 2 12/29/19 12:07: Bedside Glucose (Misc Panel) 124H 12/29/19 17:02: Bedside Glucose (Misc Panel) 158H 12/29/19 20:56: Bedside Glucose (Misc Panel) 154H 12/30/19 07:23: Bedside Glucose (Misc Panel) 126H 12/30/19 08:16: Bedside Glucose (Misc Panel) 182H ESAU TRAN MD Dec 30, 2019 10:42
[2019-12-30] MEDS: ATORVASTATIN 20 MG TAB PO SCH (20:12)
[2019-12-30] MEDS: OLANZapine INTRAMUSCULAR 10MG VIAL IM PRN (20:12)
[2019-12-30] MEDS: ACETAMINOPHEN TAB 650MG DOSE (2X325MG) PO PRN (20:13)
[2019-12-30] MEDS: ASPIRIN ENTERIC 325 MG TAB PO SCH (20:13)
[2019-12-30] MEDS: NICOTINE 7 MG/24 HR TRANSDERMAL TD SCH (20:13)
[2019-12-31 06:00] VITALS: BP 145/67
[2019-12-31 07:50] LABS: HEMATOCRIT 43.8 % (42.0-52.0); HEMOGLOBIN 14.5 g/dl (13.5-17.5); MEAN CORPUSCULAR HEMOGLOBIN 30.2 pg (27.0-33.0); MEAN CORPUSCULAR HGB CONC 33.1 g/dl (32.0-36.5); MEAN CORPUSCULAR VOLUME 91.3 fl (80.0-96.0); PLATELET COUNT, AUTOMATED 235 10^3/uL (150-450); WHITE BLOOD COUNT 9.2 10^3/uL (4.0-10.0)
[2019-12-31 08:00] LABS: BLOOD UREA NITROGEN 12 MG/DL (7-18); CALCIUM LEVEL 8.5 MG/DL (8.8-10.2); CARBON DIOXIDE LEVEL 27 MEQ/L (21-32); CHLORIDE LEVEL 112 MEQ/L (98-107); CREATININE FOR GFR 0.73 MG/DL (0.70-1.30); GLOMERULAR FILTRATION RATE > 60.0 (>35); GLUCOSE, FASTING 124 MG/DL (70-100); POTASSIUM SERUM 3.6 MEQ/L (3.5-5.1); SODIUM LEVEL 144 MEQ/L (136-145)
[2019-12-31] MEDS: TAMSULOSIN 0.4 MG CAP PO SCH ×2 (10:18→12:03)
[2019-12-31] MEDS: VITAMIN D 1,000 INTERNATIONAL UNITS TABLET PO SCH ×2 (10:18→12:04)
[2019-12-31] MEDS: CitaloPRAM (CeleXA) 20 MG TAB PO SCH ×2 (10:18→12:04)
[2019-12-31] MEDS: FERROUS SULFATE 325MG TAB PO SCH ×2 (10:19→12:04)
[2019-12-31] MEDS: PANTOPRAZOLE 40MG TAB (PROTONIX) PO SCH ×2 (10:19→12:04)
[2019-12-31] MEDS: ENOXAPARIN 30MG/0.3ML SYRINGE (J1650 PER 10MG) SC SCH (10:19)
[2019-12-31] MEDS: QUEtiapine FUMARATE 12.5 MG HALF-TAB PO SCH ×3 (10:19→17:02)
[2019-12-31] MEDS: ASCORBIC ACID 500 MG TAB PO SCH ×2 (10:19→12:04)
[2019-12-31] MEDS: HumaLOG INSULIN (NovoLOG) PER UNIT SC SCH ×4 (10:20→21:00)
[2019-12-31] MEDS: LEVEMIR (INSULIN DETEMIR) 1 UNITS/0.01ML SC SCH (10:21)
[2019-12-31] MEDS: POLYVINYL ALCOHOL OPHTH SOLN 15 ML(LIQUITEARS) OU SCH ×4 (10:22→21:03)
[2019-12-31] MEDS: ATORVASTATIN 20 MG TAB PO SCH (21:03)
[2019-12-31] MEDS: ACETAMINOPHEN TAB 650MG DOSE (2X325MG) PO PRN (21:03)
[2019-12-31] MEDS: OLANZapine INTRAMUSCULAR 10MG VIAL IM PRN (21:03)
[2019-12-31] MEDS: ASPIRIN ENTERIC 325 MG TAB PO SCH (21:03)
[2019-12-31] MEDS: NICOTINE 7 MG/24 HR TRANSDERMAL TD SCH (21:04)
[2020-01-01 06:00] VITALS: BP 140/65
[2020-01-01] MEDS: HumaLOG INSULIN (NovoLOG) PER UNIT SC SCH ×4 (07:30→21:00)
[2020-01-01] MEDS: QUEtiapine FUMARATE 12.5 MG HALF-TAB PO SCH ×2 (09:00→16:53)
[2020-01-01] MEDS: POLYVINYL ALCOHOL OPHTH SOLN 15 ML(LIQUITEARS) OU SCH ×4 (09:00→21:25)
[2020-01-01] MEDS: ENOXAPARIN 30MG/0.3ML SYRINGE (J1650 PER 10MG) SC SCH (14:15)
[2020-01-01] MEDS: LEVEMIR (INSULIN DETEMIR) 1 UNITS/0.01ML SC SCH (14:15)
[2020-01-01] MEDS: DOCUSATE SODIUM 100 MG CAP PO PRN (16:52)
[2020-01-01] MEDS: TAMSULOSIN 0.4 MG CAP PO SCH (16:52)
[2020-01-01] MEDS: CitaloPRAM (CeleXA) 20 MG TAB PO SCH (16:52)
[2020-01-01] MEDS: ASCORBIC ACID 500 MG TAB PO SCH (16:53)
[2020-01-01] MEDS: PANTOPRAZOLE 40MG TAB (PROTONIX) PO SCH (16:53)
[2020-01-01] MEDS: VITAMIN D 1,000 INTERNATIONAL UNITS TABLET PO SCH (16:53)
[2020-01-01] MEDS: FERROUS SULFATE 325MG TAB PO SCH (16:53)
[2020-01-01] MEDS: NICOTINE 7 MG/24 HR TRANSDERMAL TD SCH (21:25)
[2020-01-01] MEDS: ASPIRIN ENTERIC 325 MG TAB PO SCH (21:25)
[2020-01-01] MEDS: ATORVASTATIN 20 MG TAB PO SCH (21:25)
[2020-01-01] MEDS: OLANZapine 2.5MG TABLET PO SCH (21:25)
[2020-01-02 06:00] VITALS: BP 162/72
[2020-01-02] MEDS: POLYVINYL ALCOHOL OPHTH SOLN 15 ML(LIQUITEARS) OU SCH ×5 (09:00→21:04)
[2020-01-02] MEDS: QUEtiapine FUMARATE 12.5 MG HALF-TAB PO SCH ×3 (09:00→17:27)
[2020-01-02] MEDS: ENOXAPARIN 30MG/0.3ML SYRINGE (J1650 PER 10MG) SC SCH (10:07)
[2020-01-02] MEDS: CitaloPRAM (CeleXA) 20 MG TAB PO SCH (10:08)
[2020-01-02] MEDS: VITAMIN D 1,000 INTERNATIONAL UNITS TABLET PO SCH (10:08)
[2020-01-02] MEDS: LEVEMIR (INSULIN DETEMIR) 1 UNITS/0.01ML SC SCH (10:08)
[2020-01-02] MEDS: ASCORBIC ACID 500 MG TAB PO SCH (10:08)
[2020-01-02] MEDS: HumaLOG INSULIN (NovoLOG) PER UNIT SC SCH ×4 (10:08→20:56)
[2020-01-02] MEDS: PANTOPRAZOLE 40MG TAB (PROTONIX) PO SCH (10:09)
[2020-01-02] MEDS: FERROUS SULFATE 325MG TAB PO SCH (10:09)
[2020-01-02] MEDS: TAMSULOSIN 0.4 MG CAP PO SCH (10:09)
[2020-01-02] MEDS: DOCUSATE SODIUM 100 MG CAP PO PRN (10:09)
[2020-01-02] MEDS: ASPIRIN ENTERIC 325 MG TAB PO SCH (21:04)
[2020-01-02] MEDS: OLANZapine 2.5MG TABLET PO SCH (21:04)
[2020-01-02] MEDS: ATORVASTATIN 20 MG TAB PO SCH (21:04)
[2020-01-02] MEDS: NICOTINE 7 MG/24 HR TRANSDERMAL TD SCH (21:05)
--- NOTE | 2020-01-02 22:10 | REPVR ---
PROCEDURE INFORMATION: Exam: XR Chest, 1 View Exam date and time: 01/02/2020 8:43 AM Age: 84 years old Clinical indication: Other: Cough TECHNIQUE: Imaging protocol: XR of the chest Views: 1 view. COMPARISON: CR PORTABLE CHEST X-RAY 12/09/2019 2:30 AM FINDINGS: Lungs: Unremarkable. No consolidation. Pleural space: Unremarkable. No pleural effusion. No pneumothorax. Heart/Mediastinum: Unremarkable. No cardiomegaly. Bones/joints: Sternotomy. IMPRESSION: No acute findings. Electronically signed by: Johnny Byrne On 01/02/2020 22:10:08 PM
[2020-01-03 06:00] VITALS: BP 165/76
[2020-01-03] MEDS: QUEtiapine FUMARATE 12.5 MG HALF-TAB PO SCH ×2 (07:26→17:14)
[2020-01-03] MEDS: TAMSULOSIN 0.4 MG CAP PO SCH (07:26)
[2020-01-03] MEDS: VITAMIN D 1,000 INTERNATIONAL UNITS TABLET PO SCH (07:26)
[2020-01-03] MEDS: CitaloPRAM (CeleXA) 20 MG TAB PO SCH (07:26)
[2020-01-03] MEDS: ASCORBIC ACID 500 MG TAB PO SCH (07:26)
[2020-01-03] MEDS: PANTOPRAZOLE 40MG TAB (PROTONIX) PO SCH (07:26)
[2020-01-03] MEDS: DOCUSATE SODIUM 100 MG CAP PO PRN (07:26)
[2020-01-03] MEDS: FERROUS SULFATE 325MG TAB PO SCH (07:26)
[2020-01-03] MEDS: LEVEMIR (INSULIN DETEMIR) 1 UNITS/0.01ML SC SCH (07:30)
[2020-01-03] MEDS: HumaLOG INSULIN (NovoLOG) PER UNIT SC SCH ×4 (07:31→21:00)
[2020-01-03] MEDS: POLYVINYL ALCOHOL OPHTH SOLN 15 ML(LIQUITEARS) OU SCH ×4 (07:31→21:04)
[2020-01-03] MEDS: ENOXAPARIN 30MG/0.3ML SYRINGE (J1650 PER 10MG) SC SCH (07:31)
[2020-01-03] MEDS: ATORVASTATIN 20 MG TAB PO SCH (21:04)
[2020-01-03] MEDS: ASPIRIN ENTERIC 325 MG TAB PO SCH (21:04)
[2020-01-03] MEDS: NICOTINE 7 MG/24 HR TRANSDERMAL TD SCH (21:04)
[2020-01-03] MEDS: OLANZapine 2.5MG TABLET PO SCH (21:05)
[2020-01-04 06:00] VITALS: BP 160/72
[2020-01-04 06:08] LABS: HEMATOCRIT 42.8 % (42.0-52.0); HEMOGLOBIN 14.4 g/dl (13.5-17.5); MEAN CORPUSCULAR HEMOGLOBIN 30.6 pg (27.0-33.0); MEAN CORPUSCULAR HGB CONC 33.6 g/dl (32.0-36.5); MEAN CORPUSCULAR VOLUME 90.9 fl (80.0-96.0); PLATELET COUNT, AUTOMATED 232 10^3/uL (150-450); RED BLOOD COUNT 4.71 10^6/uL (4.30-6.10); WHITE BLOOD COUNT 8.1 10^3/uL (4.0-10.0)
[2020-01-04 06:27] LABS: BLOOD UREA NITROGEN 15 MG/DL (7-18); CALCIUM LEVEL 8.7 MG/DL (8.8-10.2); CARBON DIOXIDE LEVEL 28 MEQ/L (21-32); CHLORIDE LEVEL 110 MEQ/L (98-107); GLOMERULAR FILTRATION RATE > 60.0 (>35); GLUCOSE, FASTING 125 MG/DL (70-100); POTASSIUM SERUM 3.7 MEQ/L (3.5-5.1); SODIUM LEVEL 144 MEQ/L (136-145)
[2020-01-04] MEDS: HumaLOG INSULIN (NovoLOG) PER UNIT SC SCH ×4 (07:30→20:13)
[2020-01-04] MEDS: POLYVINYL ALCOHOL OPHTH SOLN 15 ML(LIQUITEARS) OU SCH ×4 (09:00→20:20)
[2020-01-04] MEDS: QUEtiapine FUMARATE 12.5 MG HALF-TAB PO SCH ×2 (09:00→18:15)
[2020-01-04] MEDS: LEVEMIR (INSULIN DETEMIR) 1 UNITS/0.01ML SC SCH (09:00)
[2020-01-04] MEDS: ENOXAPARIN 30MG/0.3ML SYRINGE (J1650 PER 10MG) SC SCH (16:09)
[2020-01-04] MEDS: ASCORBIC ACID 500 MG TAB PO SCH (16:50)
[2020-01-04] MEDS: VITAMIN D 1,000 INTERNATIONAL UNITS TABLET PO SCH (16:51)
[2020-01-04] MEDS: PANTOPRAZOLE 40MG TAB (PROTONIX) PO SCH (16:51)
[2020-01-04] MEDS: CitaloPRAM (CeleXA) 20 MG TAB PO SCH (16:51)
[2020-01-04] MEDS: TAMSULOSIN 0.4 MG CAP PO SCH (16:51)
[2020-01-04] MEDS: DOCUSATE SODIUM 100 MG CAP PO PRN (16:52)
[2020-01-04] MEDS: FERROUS SULFATE 325MG TAB PO SCH (16:53)
[2020-01-04] MEDS: OLANZapine 2.5MG TABLET PO SCH (20:20)
[2020-01-04] MEDS: NICOTINE 7 MG/24 HR TRANSDERMAL TD SCH (20:20)
[2020-01-04] MEDS: ATORVASTATIN 20 MG TAB PO SCH (20:20)
[2020-01-04] MEDS: ASPIRIN ENTERIC 325 MG TAB PO SCH (20:20)
[2020-01-05 06:00] VITALS: BP 153/72
[2020-01-05] MEDS: ENOXAPARIN 30MG/0.3ML SYRINGE (J1650 PER 10MG) SC SCH (08:19)
[2020-01-05] MEDS: LEVEMIR (INSULIN DETEMIR) 1 UNITS/0.01ML SC SCH (08:19)
[2020-01-05] MEDS: QUEtiapine FUMARATE 12.5 MG HALF-TAB PO SCH ×2 (08:20→17:57)
[2020-01-05] MEDS: ASCORBIC ACID 500 MG TAB PO SCH (08:20)
[2020-01-05] MEDS: HumaLOG INSULIN (NovoLOG) PER UNIT SC SCH ×4 (08:20→22:17)
[2020-01-05] MEDS: VITAMIN D 1,000 INTERNATIONAL UNITS TABLET PO SCH (08:21)
[2020-01-05] MEDS: PANTOPRAZOLE 40MG TAB (PROTONIX) PO SCH (08:21)
[2020-01-05] MEDS: TAMSULOSIN 0.4 MG CAP PO SCH (08:21)
[2020-01-05] MEDS: CitaloPRAM (CeleXA) 20 MG TAB PO SCH (08:21)
[2020-01-05] MEDS: FERROUS SULFATE 325MG TAB PO SCH (08:21)
[2020-01-05] MEDS: POLYVINYL ALCOHOL OPHTH SOLN 15 ML(LIQUITEARS) OU SCH ×4 (08:22→22:20)
--- NOTE | 2020-01-05 15:05 | ECGEPIP ---
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
[2020-01-05] MEDS: OLANZapine 2.5MG TABLET PO SCH (22:20)
[2020-01-05] MEDS: ATORVASTATIN 20 MG TAB PO SCH (22:20)
[2020-01-05] MEDS: ASPIRIN ENTERIC 325 MG TAB PO SCH (22:20)
[2020-01-05] MEDS: NICOTINE 7 MG/24 HR TRANSDERMAL TD SCH (22:21)
[2020-01-06 06:00] VITALS: BP 106/52
[2020-01-06] MEDS: HumaLOG INSULIN (NovoLOG) PER UNIT SC SCH ×4 (07:30→21:00)
[2020-01-06] MEDS: QUEtiapine FUMARATE 12.5 MG HALF-TAB PO SCH ×2 (09:00→18:20)
[2020-01-06] MEDS: POLYVINYL ALCOHOL OPHTH SOLN 15 ML(LIQUITEARS) OU SCH ×4 (09:00→21:23)
[2020-01-06] MEDS: VITAMIN D 1,000 INTERNATIONAL UNITS TABLET PO SCH (15:50)
[2020-01-06] MEDS: PANTOPRAZOLE 40MG TAB (PROTONIX) PO SCH (15:50)
[2020-01-06] MEDS: ENOXAPARIN 30MG/0.3ML SYRINGE (J1650 PER 10MG) SC SCH (15:50)
[2020-01-06] MEDS: TAMSULOSIN 0.4 MG CAP PO SCH (15:50)
[2020-01-06] MEDS: ASCORBIC ACID 500 MG TAB PO SCH (15:50)
[2020-01-06] MEDS: CitaloPRAM (CeleXA) 20 MG TAB PO SCH (15:51)
[2020-01-06] MEDS: FERROUS SULFATE 325MG TAB PO SCH (15:51)
[2020-01-06] MEDS: LEVEMIR (INSULIN DETEMIR) 1 UNITS/0.01ML SC SCH (15:52)
--- NOTE | 2020-01-06 16:15 | IPNPDOC ---
Date Seen The patient was seen on 01/06/20. Progress Note SUBJECTIVE: Patient is resting in bed, no acute complaints. Awaiting placement. OBJECTIVE PHYSICAL EXAMINATION: VITAL SIGNS: Please see below. General: Comfortable and resting in bed HEENT: PERRLA, EOMI, sclerae clear Neck: supple, normal ROM, no JVD Resp: lungs CTAB, no wheeze, no rales, no crackles CVS: RRR, normal S1, S2, no murmurs Abdo: soft, no masses, no hepatosplenomegaly, BS+, no rebound tenderness Extremities: no edema, pulses 2+ MSK: no joint deformities, normal ROM Neuro: no focal neuro deficits, moving all 4 extremities Psych: calm, cooperative, AAO x 0-1.- baseline LABORATORY DATA, IMAGING STUDIES, MICROBIOLOGY: Please see below. DVT prophylaxis ordered?: Y Assessment /Plan: Patient is 84 year old male with severe dementia, history of recurrent falls, CAD/ CABG, DM, HTN, COPD was brought into the ER due to recurrent falls, UTI, advancing dementia currently awaiting placement. #Pre-syncope - vasovagal - resolved, at baseline on re-exam #Dementia with behavioral abnormalities - improved - seroquel 12.5 mg BID for - olanzapine prn - judicious use - celexa, remeron #UTI, treated - UCx positive aerococcus - Abx DC on 12/22/19 #Urinary retention - failed trial of void on 12/21 - cain in place - flomax 0.4 mg qd - Will repeat voiding trial 01/07/20 # Falls - dementia, gait imbalance - awaiting bed at [place] #DM2 - levemir - ISS #HTN - lisinopril - amlodipine # HLD - statin # DVT px - Enoxaparin DISPOSITION: [place] once bed becomes available. VS, I&O, 24H, Fishbone Vital Signs/I&O Vital Signs Date Time Temp Pulse Resp B/P (MAP) Pulse Ox O2 Delivery O2 Flow Rate FiO2 01/06/20 06:00 97.7 51 16 106/52 (70) 94 Room Air I&O- Last 24 Hours up to 6 AM 01/06/20 06:00 Intake Total 720 ml Output Total 125 ml Balance 595 ml Laboratory Data 24H LABS Laboratory Tests 2 01/05/20 16:40: Bedside Glucose (Misc Panel) 195H 9/22/20 20:05: Bedside Glucose (Misc Panel) 136H 01/06/20 06:21: Bedside Glucose (Misc Panel) 139H 01/06/20 11:32: Bedside Glucose (Misc Panel) 143H Current Medications Current Medications Medications (Trade) Dose Ordered Sig/Fabian Route PRN Reason Start Time Stop Time Status Last Admin Dose Admin Acetaminophen (Tylenol Tab) 650 mg Q4H PRN PO PAIN OR FEVER 12/03/19 01:30 12/31/19 21:03 Acetylcysteine (Mucomyst 20% (200mg/ml)) 400 mg RBID INH 12/09/19 08:00 12/21/19 11:41 DC 12/16/19 19:39 Albuterol/ Ipratropium (Duoneb (Ipr 0.5mg/Alb 2.5mg)) 3 ml Q2HP PRN NEB SOB/WHEEZING 12/03/19 03:00 12/25/19 08:56 Amlodipine Besylate (Norvasc) 5 mg DAILY PO 12/03/19 11:00 12/25/19 11:44 DC 12/24/19 08:44 Amoxicillin (Amoxicillin) 500 mg Q8H PO 12/18/19 06:00 12/22/19 19:02 DC 12/21/19 21:31 Artificial Tears (Akwa Tears) 2 drop QID OU 12/11/19 09:00 01/05/20 22:20 Ascorbic Acid (Vitamin C) 500 mg DAILY PO 12/03/19 09:00 01/06/20 15:50 Aspirin (Ecotrin) 325 mg QHS PO 12/03/19 21:00 01/05/20 22:20 Atorvastatin Calcium (Lipitor) 40 mg QHS PO 12/03/19 21:00 01/05/20 22:20 Ceftriaxone Sodium 1 gm/ Dextrose 50 ml @ 100 mls/hr Q24H IV 12/11/19 09:00 12/14/19 22:50 DC 12/14/19 09:10 Ciprofloxacin (Cipro) 250 mg BID@06,18 PO 12/11/19 18:00 12/11/19 08:05 DC Citalopram Hydrobromide (CeleXA) 20 mg DAILY PO 12/27/19 09:00 01/06/20 15:51 Citalopram Hydrobromide (CeleXA) 40 mg DAILY PO 12/03/19 09:00 12/26/19 13:36 DC 12/25/19 09:11 Dextrose (Dextrose 50%) 25 ml ASDIRECTED PRN IV SEE LABEL COMMENTS 12/03/19 03:00 12/14/19 20:52 Dextrose/Sodium Chloride 1,000 ml @ 70 mls/hr [id number] IV 12/14/19 23:15 12/17/19 15:56 DC 12/17/19 05:21 Docusate Sodium (Colace) 100 mg DAILY PRN PO CONSTIPATION 12/03/19 03:00 01/04/20 16:52 Enoxaparin Sodium (Lovenox) 30 mg DAILY SC 12/03/19 09:00 01/06/20 15:50 Ferrous Sulfate (Ferrous Sulfate) 325 mg DAILY PO 12/03/19 09:00 01/06/20 15:51 Glucagon (Glucagon) 1 mg ASDIRECTED PRN SC SEE LABEL COMMENTS 12/03/19 03:00 Glucose (Glucose) 16 GM ASDIRECTED PRN PO SEE LABEL COMMENTS 12/03/19 03:00 Haloperidol (Haldol) 5 mg STAT STAT IM 12/28/19 22:37 12/28/19 22:40 DC 12/28/19 22:46 Haloperidol (Haldol) 5 mg STAT STAT IM 12/29/19 20:24 12/29/19 20:28 DC Home Med (Med Rec Complete!) ASDIRECTED XX 12/03/19 02:15 12/03/19 02:05 DC Insulin Detemir (Levemir Insulin) 7 units DAILY SC 12/18/19 09:00 01/06/20 15:52 Insulin Detemir (Levemir Insulin) 10 units DAILY SC 12/16/19 09:00 12/17/19 15:53 DC 12/17/19 10:17 Insulin Detemir (Levemir Insulin) 15 units DAILY SC 12/03/19 09:00 12/15/19 11:50 DC 12/14/19 09:11 Insulin Human Lispro (HumaLOG INSULIN) SEE PROTOCOL TABLE AC SC 12/03/19 07:30 12/17/19 01:56 DC 12/16/19 12:38 Insulin Human Lispro (HumaLOG INSULIN) SEE PROTOCOL TABLE AC ID 12/17/19 17:30 01/05/20 17:57 Insulin Human Lispro (HumaLOG INSULIN) SEE PROTOCOL TABLE Q6H ID 12/17/19 00:00 12/17/19 15:56 DC 12/17/19 12:59 Insulin Human Lispro (HumaLOG INSULIN) SEE PROTOCOL TABLE QHS ID 12/03/19 21:00 12/17/19 01:56 DC 12/13/19 22:23 Insulin Human Lispro (HumaLOG INSULIN) SEE PROTOCOL TABLE QHS ID 12/17/19 21:00 Lisinopril (Prinivil) 10 mg DAILY PO 12/03/19 09:00 12/25/19 11:44 DC 12/24/19 08:45 Lorazepam (Ativan) 2 mg STAT STAT PO 12/03/19 02:11 12/03/19 02:12 Cancel Metformin HCl (Glucophage) 2,000 mg DAILY@1800 PO 12/03/19 18:00 12/04/19 07:32 DC 12/03/19 18:24 Nicotine (Nicoderm Cq 7 Mg) 1 patch QHS TD 12/05/19 21:00 12/06/19 07:51 DC Nicotine (Nicoderm Cq 7 Mg) 1 patch QHS TD 12/18/19 21:00 01/05/20 22:21 Nicotine (Nicoderm Cq 7 Mg) 1 patch QHS PRN TD nicotine withdrawl 12/06/19 08:00 12/18/19 16:10 DC Olanzapine (ZyPREXA) 2.5 mg QHS PO 01/01/20 21:00 01/05/20 22:20 Olanzapine (Zyprexa Intramuscular) 2.5 mg Q12HP PRN IM AGITATION 12/22/19 18:30 01/01/20 15:32 DC 12/31/19 21:03 Olanzapine (Zyprexa Intramuscular) 5 mg QHSP PRN IM AGITATION 12/13/19 22:00 12/22/19 18:36 DC 12/21/19 23:09 Pantoprazole Sodium (Protonix) 40 mg BID PO 12/03/19 09:00 12/14/19 11:27 DC 12/14/19 09:11 Pantoprazole Sodium (Protonix) 40 mg DAILY PO 12/15/19 09:00 01/06/20 15:50 Piperacillin Sod/ Tazobactam Sod 3.375 gm/Dextrose 50 ml @ 50 mls/hr Q6H IV 12/15/19 00:00 12/18/19 02:00 DC 12/17/19 23:29 Quetiapine Fumarate (SEROquel) 12.5 mg BID PO 12/14/19 09:00 12/26/19 13:36 DC 12/25/19 21:49 Quetiapine Fumarate (SEROquel) 12.5 mg QAM PO 12/27/19 09:00 01/05/20 08:20 Quetiapine Fumarate (SEROquel) 12.5 mg QHS PO 12/26/19 21:00 12/27/19 07:29 DC 12/26/19 21:28 Quetiapine Fumarate (SEROquel) 12.5 mg QHS PRN PO agitation 12/14/19 21:45 Cancel Quetiapine Fumarate (SEROquel) 12.5 mg QPM@1800 PO 12/27/19 18:00 01/05/20 17:57 Ramelteon (Rozerem) 8 mg QHS PO 12/14/19 21:00 12/26/19 13:36 DC 12/25/19 21:49 Sitagliptin Phosphate (Januvia) 100 mg DAILY PO 12/03/19 09:00 12/04/19 07:32 DC 12/03/19 14:40 Sodium Chloride 1,000 ml @ 70 mls/hr [id number] IV 12/11/19 08:45 12/14/19 23:04 DC 12/14/19 15:45 Tamsulosin HCl (Flomax) 0.4 mg DAILY PO 12/25/19 09:00 01/06/20 15:50 Tamsulosin HCl (Flomax) 0.4 mg QHS PO 12/09/19 21:00 12/25/19 11:44 DC 12/24/19 22:17 Vitamin D (Vitamin D) 1,000 units DAILY PO 12/03/19 09:00 01/06/20 15:50 Allergies Coded Allergies: No Known Allergies (Unverified , 11/22/14) Jazmine Sagastume MD Jan 06, 2020 16:15
[2020-01-06] MEDS: OLANZapine 2.5MG TABLET PO SCH (21:23)
[2020-01-06] MEDS: NICOTINE 7 MG/24 HR TRANSDERMAL TD SCH (21:23)
[2020-01-06] MEDS: ATORVASTATIN 20 MG TAB PO SCH (21:23)
[2020-01-06] MEDS: ASPIRIN ENTERIC 325 MG TAB PO SCH (21:23)
[2020-01-07 06:00] VITALS: BP 134/82
[2020-01-07 07:16] LABS: HEMATOCRIT 41.9 % (42.0-52.0); HEMOGLOBIN 13.7 g/dl (13.5-17.5); MEAN CORPUSCULAR HEMOGLOBIN 29.9 pg (27.0-33.0); MEAN CORPUSCULAR HGB CONC 32.7 g/dl (32.0-36.5); MEAN CORPUSCULAR VOLUME 91.5 fl (80.0-96.0); PLATELET COUNT, AUTOMATED 222 10^3/uL (150-450); RED BLOOD COUNT 4.58 10^6/uL (4.30-6.10); WHITE BLOOD COUNT 10.2 10^3/uL (4.0-10.0)
[2020-01-07 07:30] LABS: BLOOD UREA NITROGEN 21 MG/DL (7-18); CALCIUM LEVEL 8.4 MG/DL (8.8-10.2); CARBON DIOXIDE LEVEL 27 MEQ/L (21-32); CHLORIDE LEVEL 110 MEQ/L (98-107); CREATININE FOR GFR 0.77 MG/DL (0.70-1.30); GLOMERULAR FILTRATION RATE > 60.0 (>35); GLUCOSE, FASTING 125 MG/DL (70-100); POTASSIUM SERUM 3.7 MEQ/L (3.5-5.1); SODIUM LEVEL 142 MEQ/L (136-145)
[2020-01-07] MEDS: ENOXAPARIN 30MG/0.3ML SYRINGE (J1650 PER 10MG) SC SCH (08:24)
[2020-01-07] MEDS: LEVEMIR (INSULIN DETEMIR) 1 UNITS/0.01ML SC SCH (08:24)
[2020-01-07] MEDS: TAMSULOSIN 0.4 MG CAP PO SCH (08:25)
[2020-01-07] MEDS: HumaLOG INSULIN (NovoLOG) PER UNIT SC SCH ×4 (08:25→21:00)
[2020-01-07] MEDS: QUEtiapine FUMARATE 12.5 MG HALF-TAB PO SCH ×2 (08:25→18:15)
[2020-01-07] MEDS: PANTOPRAZOLE 40MG TAB (PROTONIX) PO SCH (08:25)
[2020-01-07] MEDS: FERROUS SULFATE 325MG TAB PO SCH (08:26)
[2020-01-07] MEDS: VITAMIN D 1,000 INTERNATIONAL UNITS TABLET PO SCH (08:26)
[2020-01-07] MEDS: CitaloPRAM (CeleXA) 20 MG TAB PO SCH (08:26)
[2020-01-07] MEDS: ASCORBIC ACID 500 MG TAB PO SCH (08:26)
[2020-01-07] MEDS: POLYVINYL ALCOHOL OPHTH SOLN 15 ML(LIQUITEARS) OU SCH ×4 (08:27→21:00)
[2020-01-07] MEDS: ATORVASTATIN 20 MG TAB PO SCH (21:00)
[2020-01-07] MEDS: ASPIRIN ENTERIC 325 MG TAB PO SCH (21:00)
[2020-01-07] MEDS: OLANZapine 2.5MG TABLET PO SCH (21:00)
[2020-01-07] MEDS: NICOTINE 7 MG/24 HR TRANSDERMAL TD SCH (21:28)
[2020-01-08] MEDS: ATORVASTATIN 20 MG TAB PO SCH ×2 (00:44→22:00)
[2020-01-08] MEDS: ASPIRIN ENTERIC 325 MG TAB PO SCH ×2 (00:44→21:59)
[2020-01-08 06:00] VITALS: BP 128/59
[2020-01-08] MEDS: POLYVINYL ALCOHOL OPHTH SOLN 15 ML(LIQUITEARS) OU SCH ×4 (09:00→21:00)
[2020-01-08] MEDS: HumaLOG INSULIN (NovoLOG) PER UNIT SC SCH ×4 (10:48→21:00)
[2020-01-08] MEDS: TAMSULOSIN 0.4 MG CAP PO SCH (15:15)
[2020-01-08] MEDS: ASCORBIC ACID 500 MG TAB PO SCH (15:15)
[2020-01-08] MEDS: QUEtiapine FUMARATE 12.5 MG HALF-TAB PO SCH ×2 (15:15→18:00)
[2020-01-08] MEDS: PANTOPRAZOLE 40MG TAB (PROTONIX) PO SCH (15:16)
[2020-01-08] MEDS: VITAMIN D 1,000 INTERNATIONAL UNITS TABLET PO SCH (15:16)
[2020-01-08] MEDS: CitaloPRAM (CeleXA) 20 MG TAB PO SCH (15:16)
[2020-01-08] MEDS: FERROUS SULFATE 325MG TAB PO SCH (15:16)
[2020-01-08] MEDS: LEVEMIR (INSULIN DETEMIR) 1 UNITS/0.01ML SC SCH (15:17)
[2020-01-08] MEDS: ENOXAPARIN 30MG/0.3ML SYRINGE (J1650 PER 10MG) SC SCH (15:36)
[2020-01-08] MEDS: OLANZapine 2.5MG TABLET PO SCH (21:59)
[2020-01-08] MEDS: NICOTINE 7 MG/24 HR TRANSDERMAL TD SCH (22:01)
[2020-01-09 06:00] VITALS: BP 134/56
[2020-01-09] MEDS: HumaLOG INSULIN (NovoLOG) PER UNIT SC SCH ×4 (08:18→20:34)
[2020-01-09] MEDS: LEVEMIR (INSULIN DETEMIR) 1 UNITS/0.01ML SC SCH (08:18)
[2020-01-09] MEDS: PANTOPRAZOLE 40MG TAB (PROTONIX) PO SCH (08:19)
[2020-01-09] MEDS: FERROUS SULFATE 325MG TAB PO SCH (08:19)
[2020-01-09] MEDS: TAMSULOSIN 0.4 MG CAP PO SCH (08:19)
[2020-01-09] MEDS: ENOXAPARIN 30MG/0.3ML SYRINGE (J1650 PER 10MG) SC SCH (08:19)
[2020-01-09] MEDS: VITAMIN D 1,000 INTERNATIONAL UNITS TABLET PO SCH (08:19)
[2020-01-09] MEDS: ASCORBIC ACID 500 MG TAB PO SCH (08:19)
[2020-01-09] MEDS: CitaloPRAM (CeleXA) 20 MG TAB PO SCH (08:19)
[2020-01-09] MEDS: QUEtiapine FUMARATE 12.5 MG HALF-TAB PO SCH ×2 (08:20→18:31)
[2020-01-09] MEDS: POLYVINYL ALCOHOL OPHTH SOLN 15 ML(LIQUITEARS) OU SCH ×4 (08:28→20:34)
[2020-01-09] MEDS: ASPIRIN ENTERIC 325 MG TAB PO SCH (20:33)
[2020-01-09] MEDS: OLANZapine 2.5MG TABLET PO SCH (20:33)
[2020-01-09] MEDS: ATORVASTATIN 20 MG TAB PO SCH (20:33)
[2020-01-09] MEDS: NICOTINE 7 MG/24 HR TRANSDERMAL TD SCH (20:34)
[2020-01-10 06:00] VITALS: BP 125/58
[2020-01-10] MEDS: HumaLOG INSULIN (NovoLOG) PER UNIT SC SCH ×4 (07:30→20:42)
[2020-01-10] MEDS: POLYVINYL ALCOHOL OPHTH SOLN 15 ML(LIQUITEARS) OU SCH ×4 (09:00→20:48)
[2020-01-10] MEDS: QUEtiapine FUMARATE 12.5 MG HALF-TAB PO SCH ×2 (09:00→17:24)
[2020-01-10 09:30] VITALS: BP 126/56
[2020-01-10] MEDS: ENOXAPARIN 30MG/0.3ML SYRINGE (J1650 PER 10MG) SC SCH (09:52)
[2020-01-10] MEDS: FERROUS SULFATE 325MG TAB PO SCH (17:23)
[2020-01-10] MEDS: PANTOPRAZOLE 40MG TAB (PROTONIX) PO SCH (17:23)
[2020-01-10] MEDS: ASCORBIC ACID 500 MG TAB PO SCH (17:23)
[2020-01-10] MEDS: CitaloPRAM (CeleXA) 20 MG TAB PO SCH (17:23)
[2020-01-10] MEDS: TAMSULOSIN 0.4 MG CAP PO SCH (17:23)
[2020-01-10] MEDS: VITAMIN D 1,000 INTERNATIONAL UNITS TABLET PO SCH (17:23)
[2020-01-10] MEDS: LEVEMIR (INSULIN DETEMIR) 1 UNITS/0.01ML SC SCH (17:25)
[2020-01-10] MEDS: ASPIRIN ENTERIC 325 MG TAB PO SCH (20:47)
[2020-01-10] MEDS: ATORVASTATIN 20 MG TAB PO SCH (20:47)
[2020-01-10] MEDS: OLANZapine 2.5MG TABLET PO SCH (20:47)
[2020-01-10] MEDS: NICOTINE 7 MG/24 HR TRANSDERMAL TD SCH (20:47)
[2020-01-10] MEDS: ACETAMINOPHEN TAB 650MG DOSE (2X325MG) PO PRN (20:48)
[2020-01-11 06:00] VITALS: BP 107/54
[2020-01-11 06:05] LABS: HEMOGLOBIN 13.8 g/dl (13.5-17.5); MEAN CORPUSCULAR HEMOGLOBIN 29.8 pg (27.0-33.0); MEAN CORPUSCULAR HGB CONC 32.9 g/dl (32.0-36.5); MEAN CORPUSCULAR VOLUME 90.7 fl (80.0-96.0); PLATELET COUNT, AUTOMATED 223 10^3/uL (150-450); RED BLOOD COUNT 4.63 10^6/uL (4.30-6.10); WHITE BLOOD COUNT 9.4 10^3/uL (4.0-10.0)
[2020-01-11 06:37] LABS: BLOOD UREA NITROGEN 19 MG/DL (7-18); CALCIUM LEVEL 8.7 MG/DL (8.8-10.2); CARBON DIOXIDE LEVEL 27 MEQ/L (21-32); CHLORIDE LEVEL 113 MEQ/L (98-107); CREATININE FOR GFR 0.69 MG/DL (0.70-1.30); GLOMERULAR FILTRATION RATE > 60.0 (>35); GLUCOSE, FASTING 82 MG/DL (70-100); POTASSIUM SERUM 3.7 MEQ/L (3.5-5.1); SODIUM LEVEL 145 MEQ/L (136-145)
[2020-01-11] MEDS: HumaLOG INSULIN (NovoLOG) PER UNIT SC SCH ×4 (07:30→20:43)
--- NOTE | 2020-01-11 08:09 | REP ---
THORACIC SPINE SERIES CLINICAL: Trauma. Fall. TECHNIQUE: AP, lateral, swimmers views of the thoracic spine. FINDINGS: Alignment and kyphosis maintained without evidence of acute fracture, compression injury, or subluxation. Moderate age-related multilevel degenerative changes include endplate sclerosis, minimal disc space narrowing, and marginal osteophytosis. IMPRESSION: Age-related degenerative changes. No acute fracture, compression injury, or subluxation. MTDD
--- NOTE | 2020-01-11 08:16 | REP ---
LUMBOSACRAL SPINE SERIES CLINICAL: Trauma, fall. TECHNIQUE: AP, lateral, bilateral oblique, and coned down views of the lumbosacral spine. FINDINGS: Lateral view suggests a mild compression deformity involving the superior endplate of L1 with approximately 10-15% loss of vertebral body heights. Findings are of indeterminate age and require correlation. The remainder of the lumbar spine demonstrates advanced multilevel degenerative changes including osteophytosis, endplate sclerosis, elements of disc space narrowing, and hypertrophic facet changes. IMPRESSION: * Compression deformity involving the superior aspect of L1 as described above of indeterminate age. Findings may represent acute injury and require clinical correlation. * Advanced multilevel degenerative spondylosis. MTDD
--- NOTE | 2020-01-11 08:17 | REP ---
PORTABLE CHEST X-RAY CLINICAL: Chest pain. COMPARISON: 12/02/2019. FINDINGS: Evidence for prior sternotomy and CABG. Mediastinum and cardiac silhouette are within normal limits. Lung perez demonstrate chronic appearing changes. No focal consolidation, effusion, or pneumothorax. Skeletal structures are intact. IMPRESSION: Chronic stable changes. No acute cardiopulmonary process. MTDD
[2020-01-11] MEDS: ASCORBIC ACID 500 MG TAB PO SCH (10:13)
[2020-01-11] MEDS: VITAMIN D 1,000 INTERNATIONAL UNITS TABLET PO SCH (10:13)
[2020-01-11] MEDS: CitaloPRAM (CeleXA) 20 MG TAB PO SCH (10:13)
[2020-01-11] MEDS: FERROUS SULFATE 325MG TAB PO SCH (10:13)
[2020-01-11] MEDS: TAMSULOSIN 0.4 MG CAP PO SCH (10:13)
[2020-01-11] MEDS: QUEtiapine FUMARATE 12.5 MG HALF-TAB PO SCH ×2 (10:13→18:39)
[2020-01-11] MEDS: ENOXAPARIN 30MG/0.3ML SYRINGE (J1650 PER 10MG) SC SCH (10:14)
[2020-01-11] MEDS: LEVEMIR (INSULIN DETEMIR) 1 UNITS/0.01ML SC SCH (10:14)
[2020-01-11] MEDS: POLYVINYL ALCOHOL OPHTH SOLN 15 ML(LIQUITEARS) OU SCH ×4 (10:15→21:08)
[2020-01-11] MEDS: PANTOPRAZOLE 40MG TAB (PROTONIX) PO SCH (10:15)
[2020-01-11 19:54] VITALS: BP 111/48
[2020-01-11] MEDS: OLANZapine 2.5MG TABLET PO SCH (21:08)
[2020-01-11] MEDS: NICOTINE 7 MG/24 HR TRANSDERMAL TD SCH (21:08)
[2020-01-11] MEDS: ASPIRIN ENTERIC 325 MG TAB PO SCH (21:08)
[2020-01-11] MEDS: ATORVASTATIN 20 MG TAB PO SCH (21:08)
[2020-01-12 06:00] VITALS: BP 141/63
[2020-01-12] MEDS: POLYVINYL ALCOHOL OPHTH SOLN 15 ML(LIQUITEARS) OU SCH ×4 (09:00→20:44)
[2020-01-12] MEDS: HumaLOG INSULIN (NovoLOG) PER UNIT SC SCH ×4 (09:21→20:44)
[2020-01-12] MEDS: LEVEMIR (INSULIN DETEMIR) 1 UNITS/0.01ML SC SCH (10:10)
[2020-01-12] MEDS: TAMSULOSIN 0.4 MG CAP PO SCH (14:14)
[2020-01-12] MEDS: PANTOPRAZOLE 40MG TAB (PROTONIX) PO SCH (14:14)
[2020-01-12] MEDS: VITAMIN D 1,000 INTERNATIONAL UNITS TABLET PO SCH (14:15)
[2020-01-12] MEDS: CitaloPRAM (CeleXA) 20 MG TAB PO SCH (14:15)
[2020-01-12] MEDS: FERROUS SULFATE 325MG TAB PO SCH (14:15)
[2020-01-12] MEDS: ASCORBIC ACID 500 MG TAB PO SCH (14:15)
[2020-01-12] MEDS: QUEtiapine FUMARATE 12.5 MG HALF-TAB PO SCH ×2 (14:16→18:11)
[2020-01-12] MEDS: ENOXAPARIN 30MG/0.3ML SYRINGE (J1650 PER 10MG) SC SCH (14:16)
[2020-01-12] MEDS: ATORVASTATIN 20 MG TAB PO SCH (20:43)
[2020-01-12] MEDS: OLANZapine 2.5MG TABLET PO SCH (20:43)
[2020-01-12] MEDS: NICOTINE 7 MG/24 HR TRANSDERMAL TD SCH (20:43)
[2020-01-12] MEDS: ASPIRIN ENTERIC 325 MG TAB PO SCH (20:43)
[2020-01-13 06:00] VITALS: BP 138/63
[2020-01-13] MEDS: CitaloPRAM (CeleXA) 20 MG TAB PO SCH (08:18)
[2020-01-13] MEDS: PANTOPRAZOLE 40MG TAB (PROTONIX) PO SCH (08:18)
[2020-01-13] MEDS: VITAMIN D 1,000 INTERNATIONAL UNITS TABLET PO SCH (08:18)
[2020-01-13] MEDS: ASCORBIC ACID 500 MG TAB PO SCH (08:18)
[2020-01-13] MEDS: TAMSULOSIN 0.4 MG CAP PO SCH (08:18)
[2020-01-13] MEDS: FERROUS SULFATE 325MG TAB PO SCH (08:18)
[2020-01-13] MEDS: QUEtiapine FUMARATE 12.5 MG HALF-TAB PO SCH ×2 (08:18→17:59)
[2020-01-13] MEDS: LEVEMIR (INSULIN DETEMIR) 1 UNITS/0.01ML SC SCH (08:19)
[2020-01-13] MEDS: HumaLOG INSULIN (NovoLOG) PER UNIT SC SCH ×4 (08:19→20:06)
[2020-01-13] MEDS: POLYVINYL ALCOHOL OPHTH SOLN 15 ML(LIQUITEARS) OU SCH ×4 (08:27→20:03)
[2020-01-13] MEDS: ENOXAPARIN 30MG/0.3ML SYRINGE (J1650 PER 10MG) SC SCH (08:33)
[2020-01-13 13:52] VITALS: BP 115/52
[2020-01-13] MEDS: NICOTINE 7 MG/24 HR TRANSDERMAL TD SCH (20:02)
[2020-01-13] MEDS: OLANZapine 2.5MG TABLET PO SCH (20:03)
[2020-01-13] MEDS: ASPIRIN ENTERIC 325 MG TAB PO SCH (20:03)
[2020-01-13] MEDS: ATORVASTATIN 20 MG TAB PO SCH (20:03)
[2020-01-14 06:00] VITALS: BP 140/69
[2020-01-14 07:07] LABS: HEMATOCRIT 38.5 % (42.0-52.0); HEMOGLOBIN 12.8 g/dl (13.5-17.5); MEAN CORPUSCULAR HEMOGLOBIN 30.3 pg (27.0-33.0); MEAN CORPUSCULAR HGB CONC 33.2 g/dl (32.0-36.5); MEAN CORPUSCULAR VOLUME 91.2 fl (80.0-96.0); PLATELET COUNT, AUTOMATED 201 10^3/uL (150-450); RED BLOOD COUNT 4.22 10^6/uL (4.30-6.10); WHITE BLOOD COUNT 10.1 10^3/uL (4.0-10.0)
[2020-01-14 07:36] LABS: BLOOD UREA NITROGEN 15 MG/DL (7-18); CALCIUM LEVEL 8.5 MG/DL (8.8-10.2); CARBON DIOXIDE LEVEL 27 MEQ/L (21-32); CHLORIDE LEVEL 113 MEQ/L (98-107); CREATININE FOR GFR 0.73 MG/DL (0.70-1.30); GLOMERULAR FILTRATION RATE > 60.0 (>35); GLUCOSE, FASTING 124 MG/DL (70-100); POTASSIUM SERUM 3.9 MEQ/L (3.5-5.1); SODIUM LEVEL 144 MEQ/L (136-145)
[2020-01-14] MEDS: HumaLOG INSULIN (NovoLOG) PER UNIT SC SCH ×4 (10:06→21:12)
[2020-01-14] MEDS: POLYVINYL ALCOHOL OPHTH SOLN 15 ML(LIQUITEARS) OU SCH ×4 (14:26→21:11)
[2020-01-14] MEDS: QUEtiapine FUMARATE 12.5 MG HALF-TAB PO SCH ×2 (14:26→17:33)
[2020-01-14] MEDS: PANTOPRAZOLE 40MG TAB (PROTONIX) PO SCH (17:32)
[2020-01-14] MEDS: ASCORBIC ACID 500 MG TAB PO SCH (17:32)
[2020-01-14] MEDS: TAMSULOSIN 0.4 MG CAP PO SCH (17:32)
[2020-01-14] MEDS: CitaloPRAM (CeleXA) 20 MG TAB PO SCH (17:32)
[2020-01-14] MEDS: VITAMIN D 1,000 INTERNATIONAL UNITS TABLET PO SCH (17:32)
[2020-01-14] MEDS: FERROUS SULFATE 325MG TAB PO SCH (17:32)
[2020-01-14] MEDS: ENOXAPARIN 30MG/0.3ML SYRINGE (J1650 PER 10MG) SC SCH (17:33)
[2020-01-14] MEDS: ATORVASTATIN 20 MG TAB PO SCH (21:10)
[2020-01-14] MEDS: OLANZapine 2.5MG TABLET PO SCH (21:10)
[2020-01-14] MEDS: ASPIRIN ENTERIC 325 MG TAB PO SCH (21:10)
[2020-01-14] MEDS: NICOTINE 7 MG/24 HR TRANSDERMAL TD SCH (21:11)
[2020-01-15 06:00] VITALS: BP 153/65
[2020-01-15] MEDS: ENOXAPARIN 30MG/0.3ML SYRINGE (J1650 PER 10MG) SC SCH (09:35)
[2020-01-15] MEDS: HumaLOG INSULIN (NovoLOG) PER UNIT SC SCH ×5 (09:35→21:00)
[2020-01-15] MEDS: PANTOPRAZOLE 40MG TAB (PROTONIX) PO SCH (09:35)
[2020-01-15] MEDS: VITAMIN D 1,000 INTERNATIONAL UNITS TABLET PO SCH (09:36)
[2020-01-15] MEDS: TAMSULOSIN 0.4 MG CAP PO SCH (09:36)
[2020-01-15] MEDS: CitaloPRAM (CeleXA) 20 MG TAB PO SCH (09:36)
[2020-01-15] MEDS: FERROUS SULFATE 325MG TAB PO SCH (09:36)
[2020-01-15] MEDS: POLYVINYL ALCOHOL OPHTH SOLN 15 ML(LIQUITEARS) OU SCH ×6 (09:36→21:05)
[2020-01-15] MEDS: ASCORBIC ACID 500 MG TAB PO SCH (09:36)
[2020-01-15] MEDS: QUEtiapine FUMARATE 12.5 MG HALF-TAB PO SCH ×3 (09:36→18:18)
[2020-01-15] MEDS: ASPIRIN ENTERIC 325 MG TAB PO SCH (21:04)
[2020-01-15] MEDS: OLANZapine 2.5MG TABLET PO SCH (21:05)
[2020-01-15] MEDS: ATORVASTATIN 20 MG TAB PO SCH (21:05)
[2020-01-15] MEDS: NICOTINE 7 MG/24 HR TRANSDERMAL TD SCH ×2 (21:06→21:12)
[2020-01-16 06:00] VITALS: BP 118/47
[2020-01-16] MEDS: ASCORBIC ACID 500 MG TAB PO SCH (09:55)
[2020-01-16] MEDS: CitaloPRAM (CeleXA) 20 MG TAB PO SCH (09:55)
[2020-01-16] MEDS: TAMSULOSIN 0.4 MG CAP PO SCH (09:55)
[2020-01-16] MEDS: PANTOPRAZOLE 40MG TAB (PROTONIX) PO SCH (09:55)
[2020-01-16] MEDS: ENOXAPARIN 30MG/0.3ML SYRINGE (J1650 PER 10MG) SC SCH (09:55)
[2020-01-16] MEDS: VITAMIN D 1,000 INTERNATIONAL UNITS TABLET PO SCH (09:55)
[2020-01-16] MEDS: QUEtiapine FUMARATE 12.5 MG HALF-TAB PO SCH ×2 (09:55→17:37)
[2020-01-16] MEDS: HumaLOG INSULIN (NovoLOG) PER UNIT SC SCH ×4 (09:56→20:55)
[2020-01-16] MEDS: FERROUS SULFATE 325MG TAB PO SCH (09:56)
[2020-01-16] MEDS: ASPIRIN ENTERIC 325 MG TAB PO SCH (20:54)
[2020-01-16] MEDS: ATORVASTATIN 20 MG TAB PO SCH (20:54)
[2020-01-16] MEDS: OLANZapine 2.5MG TABLET PO SCH (20:54)
[2020-01-16] MEDS: NYSTATIN 100,000 UNITS/GM TOPICAL PWD 15 GM TOP PRN (20:54)
[2020-01-16] MEDS: NICOTINE 7 MG/24 HR TRANSDERMAL TD SCH (20:56)
[2020-01-17 06:00] VITALS: BP 114/55
[2020-01-17] MEDS: FERROUS SULFATE 325MG TAB PO SCH (08:43)
[2020-01-17] MEDS: VITAMIN D 1,000 INTERNATIONAL UNITS TABLET PO SCH (08:43)
[2020-01-17] MEDS: CitaloPRAM (CeleXA) 20 MG TAB PO SCH (08:43)
[2020-01-17] MEDS: HumaLOG INSULIN (NovoLOG) PER UNIT SC SCH ×4 (08:43→21:00)
[2020-01-17] MEDS: QUEtiapine FUMARATE 12.5 MG HALF-TAB PO SCH ×2 (08:43→18:00)
[2020-01-17] MEDS: ASCORBIC ACID 500 MG TAB PO SCH (08:43)
[2020-01-17] MEDS: PANTOPRAZOLE 40MG TAB (PROTONIX) PO SCH (08:43)
[2020-01-17] MEDS: TAMSULOSIN 0.4 MG CAP PO SCH (08:43)
[2020-01-17] MEDS: DOCUSATE SODIUM 100 MG CAP PO PRN (08:43)
[2020-01-17] MEDS: ENOXAPARIN 30MG/0.3ML SYRINGE (J1650 PER 10MG) SC SCH (08:44)
[2020-01-17] MEDS: NICOTINE 7 MG/24 HR TRANSDERMAL TD SCH (21:03)
[2020-01-17] MEDS: OLANZapine 2.5MG TABLET PO SCH (21:04)
[2020-01-17] MEDS: NYSTATIN 100,000 UNITS/GM TOPICAL PWD 15 GM TOP PRN (21:04)
[2020-01-17] MEDS: ATORVASTATIN 20 MG TAB PO SCH (21:04)
[2020-01-17] MEDS: ASPIRIN ENTERIC 325 MG TAB PO SCH (21:04)
[2020-01-18 05:59] LABS: HEMATOCRIT 39.5 % (42.0-52.0); HEMOGLOBIN 13.4 g/dl (13.5-17.5); MEAN CORPUSCULAR HEMOGLOBIN 30.2 pg (27.0-33.0); MEAN CORPUSCULAR HGB CONC 33.9 g/dl (32.0-36.5); MEAN CORPUSCULAR VOLUME 89.2 fl (80.0-96.0); PLATELET COUNT, AUTOMATED 222 10^3/uL (150-450); RED BLOOD COUNT 4.43 10^6/uL (4.30-6.10); WHITE BLOOD COUNT 10.2 10^3/uL (4.0-10.0)
[2020-01-18 06:00] VITALS: BP 144/59
[2020-01-18 06:19] LABS: BLOOD UREA NITROGEN 13 MG/DL (7-18); CALCIUM LEVEL 7.9 MG/DL (8.8-10.2); CARBON DIOXIDE LEVEL 27 MEQ/L (21-32); CHLORIDE LEVEL 108 MEQ/L (98-107); CREATININE FOR GFR 0.73 MG/DL (0.70-1.30); GLOMERULAR FILTRATION RATE > 60.0 (>35); GLUCOSE, FASTING 169 MG/DL (70-100); POTASSIUM SERUM 3.5 MEQ/L (3.5-5.1); SODIUM LEVEL 142 MEQ/L (136-145)
[2020-01-18] MEDS: ASCORBIC ACID 500 MG TAB PO SCH (08:13)
[2020-01-18] MEDS: HumaLOG INSULIN (NovoLOG) PER UNIT SC SCH ×4 (08:13→20:49)
[2020-01-18] MEDS: CitaloPRAM (CeleXA) 20 MG TAB PO SCH (08:14)
[2020-01-18] MEDS: ENOXAPARIN 30MG/0.3ML SYRINGE (J1650 PER 10MG) SC SCH (08:14)
[2020-01-18] MEDS: QUEtiapine FUMARATE 12.5 MG HALF-TAB PO SCH ×2 (08:14→18:57)
[2020-01-18] MEDS: FERROUS SULFATE 325MG TAB PO SCH (08:14)
[2020-01-18] MEDS: VITAMIN D 1,000 INTERNATIONAL UNITS TABLET PO SCH (08:14)
[2020-01-18] MEDS: PANTOPRAZOLE 40MG TAB (PROTONIX) PO SCH (08:14)
[2020-01-18] MEDS: TAMSULOSIN 0.4 MG CAP PO SCH (08:14)
[2020-01-18] MEDS: ASPIRIN ENTERIC 325 MG TAB PO SCH (20:49)
[2020-01-18] MEDS: NICOTINE 7 MG/24 HR TRANSDERMAL TD SCH (20:49)
[2020-01-18] MEDS: ATORVASTATIN 20 MG TAB PO SCH (20:49)
[2020-01-18] MEDS: NYSTATIN 100,000 UNITS/GM TOPICAL PWD 15 GM TOP PRN (20:49)
[2020-01-18] MEDS: OLANZapine 2.5MG TABLET PO SCH (20:49)
[2020-01-19 06:00] VITALS: BP 140/80
[2020-01-19] MEDS: HumaLOG INSULIN (NovoLOG) PER UNIT SC SCH ×4 (07:30→21:08)
[2020-01-19 08:47] LABS: BASO # 0.1 10^3/uL (0.0-0.2); BASO % 0.4 % (0.0-1.0); EOS # 0.1 10^3/uL (0.0-0.5); EOS % 0.4 % (0.0-3.0); HEMATOCRIT 36.2 % (42.0-52.0); LYMPH # 1.4 10^3/uL (1.5-5.0); LYMPH % 11.3 % (24.0-44.0); MEAN CORPUSCULAR HEMOGLOBIN 29.6 pg (27.0-33.0); MEAN CORPUSCULAR HGB CONC 33.1 g/dl (32.0-36.5); MEAN CORPUSCULAR VOLUME 89.2 fl (80.0-96.0); MONO # 1.5 10^3/uL (0.0-0.8); MONO % 12.6 % (0.0-5.0); NEUTROPHILS # 9.2 10^3/uL (1.5-8.5); NEUTROPHILS % 74.8 % (36.0-66.0); PLATELET COUNT, AUTOMATED 210 10^3/uL (150-450); RED BLOOD COUNT 4.06 10^6/uL (4.30-6.10); WHITE BLOOD COUNT 12.2 10^3/uL (4.0-10.0)
[2020-01-19 09:06] LABS: BLOOD UREA NITROGEN 16 MG/DL (7-18); CALCIUM LEVEL 8.1 MG/DL (8.8-10.2); CARBON DIOXIDE LEVEL 26 MEQ/L (21-32); CHLORIDE LEVEL 107 MEQ/L (98-107); CREATININE FOR GFR 0.74 MG/DL (0.70-1.30); GLOMERULAR FILTRATION RATE > 60.0 (>35); GLUCOSE, FASTING 199 MG/DL (70-100); MAGNESIUM LEVEL 1.6 MG/DL (1.8-2.4); POTASSIUM SERUM 3.4 MEQ/L (3.5-5.1); SODIUM LEVEL 140 MEQ/L (136-145)
[2020-01-19] MEDS: ENOXAPARIN 30MG/0.3ML SYRINGE (J1650 PER 10MG) SC SCH (09:54)
[2020-01-19] MEDS: PANTOPRAZOLE 40MG TAB (PROTONIX) PO SCH (09:59)
[2020-01-19] MEDS: TAMSULOSIN 0.4 MG CAP PO SCH (09:59)
[2020-01-19] MEDS: QUEtiapine FUMARATE 12.5 MG HALF-TAB PO SCH ×2 (09:59→18:31)
[2020-01-19] MEDS: VITAMIN D 1,000 INTERNATIONAL UNITS TABLET PO SCH (09:59)
[2020-01-19] MEDS: FERROUS SULFATE 325MG TAB PO SCH (09:59)
[2020-01-19] MEDS: ASCORBIC ACID 500 MG TAB PO SCH (09:59)
[2020-01-19] MEDS: CitaloPRAM (CeleXA) 20 MG TAB PO SCH (09:59)
[2020-01-19] MEDS ORDERED: POTASSIUM CHLORIDE 10 MEQ SR TABLET PO ONE (10:00)
[2020-01-19] MEDS ORDERED: MAGNESIUM OXIDE 400 MG TAB (MAG-OX) PO ONE (10:00)
--- NOTE | 2020-01-19 12:53 | IPNPDOC ---
Text Note Date of Service The patient was seen on 01/19/20. NOTE Subjective: Patient is a 84-year-old male with Severe dementia, history of recurrent falls, CAD / CABG, DM, HTN, COPD was brought into the ER due to recu rrent falls. Patient was found to have a UTI. Patient has been transitioned status and looking for long-term placement, Patient was seen and examined at the bedside. Patient does not appear to be in any acute distress, arousable to painful stimuli. Objective: Vitals (See below) General: Lying in bed, no acute distress, Arousable to painful stimuli HEENT: NC, AT CVS: +S1S2 Lungs: Fair air entry b/l, -w/r/r Abdomen: Soft, ND, NT Extremities: - Edema, - Calf tenderness Assessment and plan: Pre-syncope - vasovagal - resolved Dementia with behavioral abnormalities - c/w Seroquel, Citalopram and Olanzapine - c/w Remeron s/p UTI - UCx : Aerococcus Urinary retention - failed trial of voiding - c/w Chronic Chavez place - c/w Tamsulosin Falls - dementia, gait imbalance - awaiting bed at [facility] NIDDM2 - c/w ISS HTN - Lisinopril and Amlodipine on hold DLP - c/w Atorvastatin GERD - c/w Protonix DVT prophylaxis - c/w Lovenox Disposition: - Awaiting placement at [facility] VS,[facility], I+O VS, [facility], I+O Laboratory Tests 01/19/20 08:26 Vital Signs Date Time Temp Pulse Resp B/P (MAP) Pulse Ox O2 Delivery O2 Flow Rate FiO2 01/19/20 06:00 97.5 84 18 140/80 (100) 96 Room Air I&O- Last 24 Hours up to 6 AM 01/19/20 06:00 Intake Total 1240 ml Output Total 1350 ml Balance -110 ml DWAIN JUARES MD Jan 19, 2020 12:53
--- NOTE | 2020-01-19 20:26 | REPVR ---
PROCEDURE INFORMATION: Exam: XR Chest, 1 View Exam date and time: 01/19/2020 6:43 PM Age: 84 years old Clinical indication: Other: Aspiration TECHNIQUE: Imaging protocol: XR of the chest Views: 1 view. COMPARISON: CR Chest, 1 view 01/02/2020 8:39 AM FINDINGS: Lungs: Right basilar atelectatic change/infiltrate visualized. This has progressed. Mild left basilar atelectasis. The bilateral pulmonary apices are shadowed by the facial soft tissues and mandible, right side greater than left. Pleural space: No pleural effusions. Heart/Mediastinum: Mediastinal clips are identified. No cardiomegaly. Vasculature: There is atherosclerotic calcification of the aortic arch. Bones/joints: Sternotomy wires are identified. Hypertrophic degenerative changes are noted involving the spine. IMPRESSION: Right basilar atelectatic change/infiltrate visualized. This has progressed. Mild left basilar atelectasis. Clinical correlation and follow-up radiographs are recommended. Electronically signed by: Devin Palomares On 01/19/2020 20:26:28 PM
[2020-01-19] MEDS: NICOTINE 7 MG/24 HR TRANSDERMAL TD SCH (21:07)
[2020-01-19] MEDS: ASPIRIN 81 MG CHEW TABLET PO SCH (21:33)
[2020-01-19] MEDS: ATORVASTATIN 20 MG TAB PO SCH (21:33)
[2020-01-19] MEDS: CEFDINIR 300 MG CAP (OMNICEF) PO SCH (21:33)
[2020-01-19] MEDS: OLANZapine 2.5MG TABLET PO SCH (21:33)
[2020-01-20 06:00] VITALS: BP 133/59
[2020-01-20] MEDS: HumaLOG INSULIN (NovoLOG) PER UNIT SC SCH ×4 (08:13→20:45)
[2020-01-20] MEDS: ENOXAPARIN 30MG/0.3ML SYRINGE (J1650 PER 10MG) SC SCH (08:14)
[2020-01-20] MEDS: CEFDINIR 300 MG CAP (OMNICEF) PO SCH (09:00)
[2020-01-20] MEDS: ASCORBIC ACID 500 MG TAB PO SCH ×2 (09:00→13:11)
[2020-01-20] MEDS: TAMSULOSIN 0.4 MG CAP PO SCH ×2 (09:00→13:11)
[2020-01-20] MEDS: PANTOPRAZOLE 40MG VIAL (C9113 PER 1) IV SCH ×2 (09:00→13:10)
[2020-01-20] MEDS: CitaloPRAM (CeleXA) 20 MG TAB PO SCH ×2 (09:00→13:11)
[2020-01-20] MEDS: FERROUS SULFATE 300MG/5ML UDC LIQUID PO SCH ×2 (09:00→13:10)
[2020-01-20] MEDS: QUEtiapine FUMARATE 12.5 MG HALF-TAB PO SCH ×2 (09:00→17:22)
[2020-01-20] MEDS: DOCUSATE SOD LIQ 100MG/10ML UDC GT SCH ×2 (09:00→13:11)
[2020-01-20] MEDS: VITAMIN D 1,000 INTERNATIONAL UNITS TABLET PO SCH ×2 (09:00→13:11)
[2020-01-20 09:48] LABS: BASO % 0.2 % (0.0-1.0); EOS % 0.1 % (0.0-3.0); HEMATOCRIT 38.5 % (42.0-52.0); HEMOGLOBIN 12.7 g/dl (13.5-17.5); LYMPH # 1.3 10^3/uL (1.5-5.0); LYMPH % 9.5 % (24.0-44.0); MEAN CORPUSCULAR HEMOGLOBIN 29.8 pg (27.0-33.0); MEAN CORPUSCULAR VOLUME 90.4 fl (80.0-96.0); MONO # 1.8 10^3/uL (0.0-0.8); MONO % 12.8 % (0.0-5.0); NEUTROPHILS # 10.5 10^3/uL (1.5-8.5); NEUTROPHILS % 76.9 % (36.0-66.0); PLATELET COUNT, AUTOMATED 221 10^3/uL (150-450); RED BLOOD COUNT 4.26 10^6/uL (4.30-6.10); WHITE BLOOD COUNT 13.7 10^3/uL (4.0-10.0)
[2020-01-20 10:57] LABS: BLOOD UREA NITROGEN 19 MG/DL (7-18); CALCIUM LEVEL 8.5 MG/DL (8.8-10.2); CARBON DIOXIDE LEVEL 26 MEQ/L (21-32); CHLORIDE LEVEL 107 MEQ/L (98-107); CREATININE FOR GFR 0.86 MG/DL (0.70-1.30); GLOMERULAR FILTRATION RATE > 60.0 (>35); GLUCOSE, FASTING 231 MG/DL (70-100); MAGNESIUM LEVEL 1.8 MG/DL (1.8-2.4); POTASSIUM SERUM 3.9 MEQ/L (3.5-5.1); SODIUM LEVEL 140 MEQ/L (136-145)
[2020-01-20] MEDS ORDERED: NS 1,000 ML IV SCH (11:15)
[2020-01-20] MEDS: cefTRIAXone SOD 1 GM in D5W MINI-BAG PLUS 50 ML IV SCH (11:34)
--- NOTE | 2020-01-20 12:14 | REPVR ---
PROCEDURE INFORMATION: Exam: CT Chest Without Contrast Exam date and time: 01/20/2020 11:49 AM Age: 84 years old Clinical indication: Chest pain; pneumonia. TECHNIQUE: Imaging protocol: Computed tomography of the chest without contrast. 3D rendering (Not supervised by radiologist): MIP and/or 3D reconstructed images were created by the technologist. Radiation optimization: All CT scans at this facility use at least one of these dose optimization techniques: automated exposure control; mA and/or kV adjustment per patient size (includes targeted exams where dose is matched to clinical indication); or iterative reconstruction. COMPARISON: CR PORTABLE CHEST X-RAY 01/19/2020 7:34 PM FINDINGS: Lungs: There is bibasilar atelectasis. Pleural space: Unremarkable. No pneumothorax. No pleural effusion. Heart: There are atherosclerotic changes of the coronary arteries. Aorta: There are calcified atherosclerotic changes of the aorta. Calcification within the abdominal aorta appears displaced from the aorta wall consistent with aortic dissection. Although this may be chronic, no prior studies are available for comparison. Lymph nodes: Unremarkable. No enlarged lymph nodes. Kidneys and ureters: There is moderate left-sided hydronephrosis. There is left perinephric stranding. The cause for this is not determined on this exam. There are nonobstructing left intrarenal calcifications. Bones/joints: Median sternotomy wires are present. There is a moderate L1 compression fracture, age-indeterminate. There are old right-sided rib fractures. Soft tissues: Unremarkable. IMPRESSION: 1. There is moderate left-sided hydronephrosis. There is left perinephric stranding. The cause for this is not determined on this exam. Follow-up postcontrast CT scan is recommended. 2. There are nonobstructing left intrarenal calcifications. 3. Calcification within the abdominal aorta appears displaced from the aortic wall consistent with aortic dissection. Although this may be chronic, no prior studies are available for comparison. Follow-up postcontrast CT scan is recommended. 4. There is a moderate L1 compression fracture, age-indeterminate. Electronically signed by: Guzman Murry On 01/20/2020 12:14:21 PM
--- NOTE | 2020-01-20 13:00 | IPNPDOC ---
Text Note Date of Service The patient was seen on 01/20/20. NOTE Subjective: Patient is a 84-year-old male with Severe dementia, history of recurrent falls, CAD / CABG, DM, HTN, COPD was brought into the ER due to recu rrent falls. Patient was found to have a UTI. Patient has been transitioned status and looking for long-term placement, Patient was seen and examined at the bedside. Patient has periods of lethargy f ollowed by agitation. Objective: Vitals (See below) General: Lying in bed, does not appear to be in any acute distress, Again is arousable to painful stimuli HEENT: NC, AT CVS: +S1S2 Lungs: Fair air entry b/l, no appreciable wheezing / rhonchi / rales Abdomen: Soft, non-distended and non-tender Extremities: no evidence of LE edema, - Calf tenderness Assessment and plan: Leukocytosis - UTI / Possible pyelonephritis - possibly 2/2 obstruction - Currently patient has leukocytosis - Remains afebrile and hemodynamically stable - UA abnormal; U. culture pending - CT chest 01/19: 1. There is moderate left-sided hydronephrosis. There is left perinephric stranding. The cause for this is not determined on this exam. Follow-up postcontrast CT scan is recommended. 2. There are nonobstructing left intrarenal calcifications. 3. Calcification within the abdominal aorta appears displaced from the aortic wall consistent with aortic dissection. Although this may be chronic, no prior studies are available for comparison. Follow-up postcontrast CT scan is recommended. 4. There is a moderate L1 compression fracture, age- indeterminate. - Will get CT abdomen / pelvis - Case discussed with Urology; will officially consult after results are availa ble - Will c/w Ceftriaxone and DC Cefdinir (Day #2); c/w IV fluid hydration Pre-syncope - vasovagal - resolved Dementia with behavioral abnormalities - c/w Seroquel, Citalopram and Olanzapine - c/w Remeron s/p UTI - UCx : Aerococcus Urinary retention - failed trial of voiding - c/w Chronic Chavez place - c/w Tamsulosin Falls - dementia, gait imbalance - awaiting bed at [facility] NIDDM2 - c/w ISS HTN - Lisinopril and Amlodipine on hold DLP - c/w Atorvastatin GERD - c/w Protonix DVT prophylaxis - c/w Lovenox Disposition: - Transition to acute status VS,Fishbone, I+O VS, Fishbone, I+O Laboratory Tests 01/20/20 08:38 01/20/20 08:39 Vital Signs Date Time Temp Pulse Resp B/P (MAP) Pulse Ox O2 Delivery O2 Flow Rate FiO2 01/20/20 06:00 99.2 82 18 133/59 (83) 94 Room Air I&O- Last 24 Hours up to 6 AM 01/20/20 06:00 Intake Total 420 ml Output Total 1550 ml Balance -1130 ml DWAIN JUARES MD Jan 20, 2020 13:00
[2020-01-20 14:00] VITALS: BP 130/59
--- NOTE | 2020-01-20 14:05 | REPVR ---
PROCEDURE INFORMATION: Exam: CT Abdomen And Pelvis Without Contrast Exam date and time: 01/20/2020 1:28 PM Age: 84 years old Clinical indication: Abdominal pain; Generalized; Additional info: L hydronephrosis / perinephric stranding TECHNIQUE: Imaging protocol: Computed tomography of the abdomen and pelvis without contrast. Radiation optimization: All CT scans at this facility use at least one of these dose optimization techniques: automated exposure control; mA and/or kV adjustment per patient size (includes targeted exams where dose is matched to clinical indication); or iterative reconstruction. COMPARISON: CR Spine. Lumbosacral, complete 12/07/2019 10:34 AM FINDINGS: Lungs: There are bilateral emphysematous changes. There is right basilar atelectasis. Liver: Normal. No mass. Gallbladder and bile ducts: Normal. No calcified stones. No ductal dilation. Pancreas: Normal. No ductal dilation. Spleen: Normal. No splenomegaly. Adrenals: Normal. No mass. Kidneys and ureters: There is moderate left-sided hydronephrosis. There is left perinephric stranding. There is a 2 mm obstructing ureterovesical junction calculus. Underlying pyelonephritis cannot be excluded based on this noncontrast exam. There are nonobstructing left intrarenal calcifications. Stomach and bowel: There is a large amount of dense stool in the rectosigmoid colon. Appendix: No evidence of appendicitis. Intraperitoneal space: Unremarkable. No free air. No significant fluid collection. Vasculature: There are calcified atherosclerotic changes of the aorta. Calcification within the abdominal aorta appears displaced from the aortic wall consistent with aortic dissection. Although this may be chronic, no prior studies are available for comparison. Lymph nodes: Unremarkable. No enlarged lymph nodes. Urinary bladder: There is a Chavez balloon catheter within the urinary bladder. There is urinary bladder wall thickening. This is nonspecific but can be seen in the setting of cystitis. Reproductive: There are multiple prostatic calcifications. Bones/joints: Median sternotomy wires are present. There is a L1 compression fracture, age-indeterminate. Soft tissues: There is anasarca. IMPRESSION: 1. There is urinary bladder wall thickening. This is nonspecific but can be seen in the setting of cystitis. 2. There is moderate left-sided hydronephrosis. There is left perinephric stranding. There is a 2 mm obstructing ureterovesical junction calculus. Underlying pyelonephritis cannot be excluded based on this noncontrast exam. 3. Calcification within the abdominal aorta appears displaced from the aortic wall consistent with aortic dissection. Although this may be chronic, no prior studies are available for comparison. Follow-up postcontrast CT scan is recommended. 4. There is a L1 compression fracture, age-indeterminate. Electronically signed by: Guzman Murry On 01/20/2020 14:05:20 PM
[2020-01-20] MEDS: NICOTINE 7 MG/24 HR TRANSDERMAL TD SCH (20:45)
[2020-01-20] MEDS: OLANZapine 2.5MG TABLET PO SCH (21:21)
[2020-01-20] MEDS: ASPIRIN 81 MG CHEW TABLET PO SCH (21:21)
[2020-01-20] MEDS: ATORVASTATIN 20 MG TAB PO SCH (21:21)
[2020-01-20 22:00] VITALS: BP 117/51
[2020-01-21 06:00] VITALS: BP 118/54
[2020-01-21 08:10] LABS: HEMATOCRIT 39.6 % (42.0-52.0); MEAN CORPUSCULAR HGB CONC 32.8 g/dl (32.0-36.5); MEAN CORPUSCULAR VOLUME 91.2 fl (80.0-96.0); PLATELET COUNT, AUTOMATED 205 10^3/uL (150-450); RED BLOOD COUNT 4.34 10^6/uL (4.30-6.10); WHITE BLOOD COUNT 12.3 10^3/uL (4.0-10.0)
[2020-01-21] MEDS: QUEtiapine FUMARATE 12.5 MG HALF-TAB PO SCH ×2 (09:07→17:20)
[2020-01-21] MEDS: FERROUS SULFATE 300MG/5ML UDC LIQUID PO SCH (09:07)
[2020-01-21] MEDS: TAMSULOSIN 0.4 MG CAP PO SCH (09:07)
[2020-01-21] MEDS: CitaloPRAM (CeleXA) 20 MG TAB PO SCH (09:07)
[2020-01-21] MEDS: ASCORBIC ACID 500 MG TAB PO SCH (09:07)
[2020-01-21] MEDS: DOCUSATE SOD LIQ 100MG/10ML UDC GT SCH (09:07)
[2020-01-21] MEDS: VITAMIN D 1,000 INTERNATIONAL UNITS TABLET PO SCH (09:07)
[2020-01-21] MEDS: PANTOPRAZOLE 40MG VIAL (C9113 PER 1) IV SCH (09:08)
[2020-01-21] MEDS: ENOXAPARIN 30MG/0.3ML SYRINGE (J1650 PER 10MG) SC SCH (09:08)
[2020-01-21] MEDS: HumaLOG INSULIN (NovoLOG) PER UNIT SC SCH ×4 (09:09→21:00)
[2020-01-21 09:10] LABS: BLOOD UREA NITROGEN 18 MG/DL (7-18); CARBON DIOXIDE LEVEL 20 MEQ/L (21-32); CHLORIDE LEVEL 111 MEQ/L (98-107); CREATININE FOR GFR 0.87 MG/DL (0.70-1.30); GLOMERULAR FILTRATION RATE > 60.0 (>35); GLUCOSE, FASTING 223 MG/DL (70-100); POTASSIUM SERUM 4.3 MEQ/L (3.5-5.1); SODIUM LEVEL 140 MEQ/L (136-145)
--- NOTE | 2020-01-21 11:10 | IPNPDOC ---
Text Note Date of Service The patient was seen on 01/21/20. NOTE Subjective: Patient is a 84-year-old male with Severe dementia, history of recurrent falls, CAD / CABG, DM, HTN, COPD was brought into the ER due to recu rrent falls. Patient was found to have a UTI. Patient has been transitioned status and looking for long-term placement, Patient was seen and examined at the bedside. Patient is awake but minimally co nversive, does not appear to be in any acute distress. Objective: Vitals (See below) General: Lying in bed, does not appear to be in any acute distress, is awake and alert HEENT: NC, AT CVS: +S1S2 Lungs: Air entry is fair bilaterally without evidence of rhonchi, crackles or wheezing Abdomen: Remains soft without any distention or tenderness Extremities: LE are free of edema, - Calf tenderness Assessment and plan: Leukocytosis - UTI / Possible pyelonephritis - possibly 2/2 obstruction - Leukocytosis is improving - Patient is afebrile and hemodynamically stable - UA 01/18 abnormal; Urine culture 01/18: Enterobacter aerogenes - CT chest 01/19: 1. There is moderate left-sided hydronephrosis. There is left perinephric stranding. The cause for this is not determined on this exam. Follow-up postcontrast CT scan is recommended. 2. There are nonobstructing left intrarenal calcifications. 3. Calcification within the abdominal aorta appears displaced from the aortic wall consistent with aortic dissection. Although this may be chronic, no prior studies are available for comparison. Follow-up postcontrast CT scan is recommended. 4. There is a moderate L1 compression fracture, age- indeterminate. - CT abdomen / pelvis 01/19: 1. There is urinary bladder wall thickening. This is nonspecific but can be seen in the setting of cystitis. 2. There is moderate left-sided hydronephrosis. There is left perinephric stranding. There is a 2 mm obstructing ureterovesical junction calculus. Underlying pyelonephritis cannot be excluded based on this noncontrast exam. 3. Calcification within the abdominal aorta appears displaced from the aortic wall consistent with aortic dissection. Although this may be chronic, no prior studies are available for c omparison. Follow-up postcontrast CT scan is recommended. 4. There is a L1 compression fracture, age-indeterminate. - Urology, Dr. Vogel on consultation; imaging has been reviewed and currently there are no plans for intervention if leukocytosis continues to improve - c/w Tamsulosin - c/w Ceftriaxone; s/p Cefdinir (Day #3); c/w IV fluid hydration Pre-syncope - vasovagal - resolved Dementia with behavioral abnormalities - c/w Seroquel, Citalopram and Olanzapine - c/w Remeron s/p UTI - UCx : Aerococcus Urinary retention - Failed trial of voiding - c/w Chronic Chavez place - c/w Tamsulosin Falls - dementia, gait imbalance - awaiting bed at [facility] NIDDM2 - c/w ISS HTN - Lisinopril and Amlodipine on hold DLP - c/w Atorvastatin GERD - c/w Protonix DVT prophylaxis - c/w Lovenox Disposition: - Will continue with current antibiotics VS,Fishbone, I+O VS, Fishbone, I+O Laboratory Tests 01/21/20 07:48 Vital Signs Date Time Temp Pulse Resp B/P (MAP) Pulse Ox O2 Delivery O2 Flow Rate FiO2 01/21/20 06:00 98.0 74 23 118/54 (75) 95 Room Air I&O- Last 24 Hours up to 6 AM 01/21/20 06:00 Intake Total 2548 ml Output Total 1025 ml Balance 1523 ml DWAIN JUARES MD Jan 21, 2020 11:10
[2020-01-21] MEDS: cefTRIAXone SOD 1 GM in D5W MINI-BAG PLUS 50 ML IV SCH (12:05)
[2020-01-21 16:00] VITALS: BP 105/53
[2020-01-21] MEDS: OLANZapine 2.5MG TABLET PO SCH ×2 (21:00→21:37)
[2020-01-21] MEDS: ATORVASTATIN 20 MG TAB PO SCH ×2 (21:00→21:36)
[2020-01-21] MEDS: ASPIRIN 81 MG CHEW TABLET PO SCH ×2 (21:00→21:36)
[2020-01-21] MEDS: NICOTINE 7 MG/24 HR TRANSDERMAL TD SCH (21:36)
[2020-01-21 22:00] VITALS: BP 136/60
[2020-01-22 05:57] LABS: HEMATOCRIT 41.3 % (42.0-52.0); HEMOGLOBIN 13.6 g/dl (13.5-17.5); MEAN CORPUSCULAR HEMOGLOBIN 29.9 pg (27.0-33.0); MEAN CORPUSCULAR HGB CONC 32.9 g/dl (32.0-36.5); MEAN CORPUSCULAR VOLUME 90.8 fl (80.0-96.0); PLATELET COUNT, AUTOMATED 237 10^3/uL (150-450); RED BLOOD COUNT 4.55 10^6/uL (4.30-6.10); WHITE BLOOD COUNT 12.6 10^3/uL (4.0-10.0)
[2020-01-22 06:00] VITALS: BP 146/68
[2020-01-22 06:16] LABS: BLOOD UREA NITROGEN 18 MG/DL (7-18); CALCIUM LEVEL 8.6 MG/DL (8.8-10.2); CARBON DIOXIDE LEVEL 25 MEQ/L (21-32); CHLORIDE LEVEL 110 MEQ/L (98-107); CREATININE FOR GFR 0.83 MG/DL (0.70-1.30); GLOMERULAR FILTRATION RATE > 60.0 (>35); GLUCOSE, FASTING 173 MG/DL (70-100); MAGNESIUM LEVEL 1.8 MG/DL (1.8-2.4); POTASSIUM SERUM 3.6 MEQ/L (3.5-5.1); SODIUM LEVEL 142 MEQ/L (136-145)
[2020-01-22] MEDS ORDERED: NS 1,000 ML IV SCH (07:30)
[2020-01-22] MEDS: CitaloPRAM (CeleXA) 20 MG TAB PO SCH (08:02)
[2020-01-22] MEDS: VITAMIN D 1,000 INTERNATIONAL UNITS TABLET PO SCH (08:02)
[2020-01-22] MEDS: DOCUSATE SOD LIQ 100MG/10ML UDC GT SCH (08:03)
[2020-01-22] MEDS: TAMSULOSIN 0.4 MG CAP PO SCH (08:03)
[2020-01-22] MEDS: ENOXAPARIN 30MG/0.3ML SYRINGE (J1650 PER 10MG) SC SCH (08:03)
[2020-01-22] MEDS: FERROUS SULFATE 300MG/5ML UDC LIQUID PO SCH (08:03)
[2020-01-22] MEDS: PANTOPRAZOLE 40MG VIAL (C9113 PER 1) IV SCH (08:03)
[2020-01-22] MEDS: QUEtiapine FUMARATE 12.5 MG HALF-TAB PO SCH ×2 (08:03→20:04)
[2020-01-22] MEDS: ASCORBIC ACID 500 MG TAB PO SCH (08:03)
[2020-01-22] MEDS: HumaLOG INSULIN (NovoLOG) PER UNIT SC SCH ×4 (08:04→21:19)
--- NOTE | 2020-01-22 10:14 | IPNPDOC ---
Text Note Date of Service The patient was seen on 01/22/20. NOTE Subjective: Patient is a 84-year-old male with Severe dementia, history of recurrent falls, CAD / CABG, DM, HTN, COPD was brought into the ER due to recu rrent falls. Patient was found to have a UTI. Patient has been transitioned status and looking for long-term placement, Patient was seen and examined at the bedside. Currently patient was seen sitting up in bed eating breakfast was able to report his name. Was interacting with nursing staff. Denies any pain. Objective: Vitals (See below) General: Sitting up in bed, does not appear to be in any distress. Appears comfortable, is awake/alert, oriented to person HEENT: NC, AT CVS: +S1S2 Lungs: There appears to be fair air entry bilaterally without evidence of rhonchi, crackles or wheezing Abdomen: Again remains soft without any distention or tenderness Extremities: No edema of lower extremities, - Calf tenderness Assessment and plan: Leukocytosis - UTI / Possible pyelonephritis - possibly 2/2 obstruction - Afebrile and hemodynamically stable - Leukocytosis remains stable; Will trend CRP - Cr has remained stable - UA 01/18 abnormal; Urine culture 01/18: Enterobacter aerogenes - CT chest 01/19: 1. There is moderate left-sided hydronephrosis. There is left perinephric stranding. The cause for this is not determined on this exam. Follo w-up postcontrast CT scan is recommended. 2. There are nonobstructing left intrarenal calcifications. 3. Calcification within the abdominal aorta appears displaced from the aortic wall consistent with aortic dissection. Although this may be chronic, no prior studies are available for comparison. Follow-up postcontrast CT scan is recommended. 4. There is a moderate L1 compression fracture, age-ind eterminate. - CT abdomen / pelvis 01/19: 1. There is urinary bladder wall thickening. This is nonspecific but can be seen in the setting of cystitis. 2. There is moderate left-sided hydronephrosis. There is left perinephric stranding. There is a 2 mm obstructing ureterovesical junction calculus. Underlying pyelonephritis cannot be excluded based on this noncontrast exam. 3. Calcification within the abdominal aorta appears displaced from the aortic wall consistent with aortic dissection. Although this may be chronic, no prior studies are available for comparison. Follow-up postcontrast CT scan is recommended. 4. There is a L1 compression fracture, age-indeterminate. - Urology, Dr. Vogel on consultation; imaging has been reviewed and currently there are no plans for intervention if leukocytosis continues to improve - c/w Tamsulosin - c/w Ceftriaxone; s/p Cefdinir (Antibiotic day #4); Will resume IV fluid hydration Pre-syncope - vasovagal - resolved Dementia with behavioral abnormalities - c/w Seroquel, Citalopram and Olanzapine - c/w Remeron s/p UTI - U. Cx : Aerococcus Urinary retention - Failed trial of voiding - c/w Chronic Chavez place - c/w Tamsulosin Falls - dementia, gait imbalance - awaiting bed at [facility] NIDDM2 - c/w ISS HTN - Lisinopril and Amlodipine on hold DLP - c/w Atorvastatin GERD - c/w Protonix DVT prophylaxis - c/w Lovenox Disposition: - Will continue with current antibiotics - Will trend CRP VS,Fishbone, I+O VS, Fishbone, I+O Laboratory Tests 01/22/20 05:39 Vital Signs Date Time Temp Pulse Resp B/P (MAP) Pulse Ox O2 Delivery O2 Flow Rate FiO2 01/22/20 06:00 97.8 69 21 146/68 (94) 96 Room Air I&O- Last 24 Hours up to 6 AM 01/22/20 06:00 Intake Total 805 ml Output Total 900 ml Balance -95 ml DWAIN JUARES MD Jan 22, 2020 10:14
[2020-01-22] MEDS: cefTRIAXone SOD 1 GM in D5W MINI-BAG PLUS 50 ML IV SCH (13:00)
[2020-01-22 14:00] VITALS: BP 103/54
[2020-01-22] MEDS: ASPIRIN 81 MG CHEW TABLET PO SCH (20:03)
[2020-01-22] MEDS: ATORVASTATIN 20 MG TAB PO SCH (20:03)
[2020-01-22] MEDS: OLANZapine 2.5MG TABLET PO SCH (20:04)
[2020-01-22 21:18] VITALS: BP 110/60
[2020-01-22 22:00] VITALS: BP 92/60
[2020-01-23 06:00] VITALS: BP 106/60
[2020-01-23 06:16] LABS: HEMATOCRIT 36.8 % (42.0-52.0); HEMOGLOBIN 12.4 g/dl (13.5-17.5); MEAN CORPUSCULAR HEMOGLOBIN 30.2 pg (27.0-33.0); MEAN CORPUSCULAR HGB CONC 33.7 g/dl (32.0-36.5); MEAN CORPUSCULAR VOLUME 89.8 fl (80.0-96.0); PLATELET COUNT, AUTOMATED 276 10^3/uL (150-450)
[2020-01-23 06:29] LABS: BLOOD UREA NITROGEN 14 MG/DL (7-18); C REACTIVE PROTEIN QUANTITATIV 7.93 MG/DL (0.00-0.30); CALCIUM LEVEL 7.9 MG/DL (8.8-10.2); CARBON DIOXIDE LEVEL 25 MEQ/L (21-32); CHLORIDE LEVEL 111 MEQ/L (98-107); GLOMERULAR FILTRATION RATE > 60.0 (>35); GLUCOSE, FASTING 193 MG/DL (70-100); MAGNESIUM LEVEL 1.5 MG/DL (1.8-2.4); POTASSIUM SERUM 3.3 MEQ/L (3.5-5.1); SODIUM LEVEL 143 MEQ/L (136-145)
--- NOTE | 2020-01-23 08:42 | REPVR ---
PROCEDURE INFORMATION: Exam: US Retroperitoneal Limited, Kidneys Exam date and time: 01/23/2020 8:25 AM Age: 84 years old Clinical indication: Abnormal findings; Abnormal radiologic finding of the abdomen; Radiologic exam and body structure: CT abd; Additional info: Evaluate for L hydronephrosis TECHNIQUE: Imaging protocol: Real-time ultrasound of the retroperitoneum with image documentation. Examination was focused on the kidneys. COMPARISON: CT ABD PELVIS W/O CONTRAST 01/20/2020 1:19 PM FINDINGS: Right kidney: Right kidney measures 11.9 cm in length. Subcentimeter renal cysts, the largest measuring 8 mm. No hydronephrosis. Left kidney: Left kidney measures 12.2 cm in length. Marked left hydronephrosis, in the setting of CT detected UPJ stenosis . 1.4 cm left renal cysts. Nonobstructing 6 mm left renal calculus. Bladder: Chavez catheter in the decompressed bladder. Gallbladder: Cholelithiasis and echogenic bile in the gallbladder. IMPRESSION: 1. Marked left hydronephrosis, in the setting of CT detected UPJ stenosis. 2. Nonobstructing 6 mm left renal calculus. 3. Additional findings as described above. Electronically signed by: Yaw Dasilva On 01/23/2020 08:41:56 AM
[2020-01-23] MEDS ORDERED: MAG SULF 1GM/100ML (MAG RUN) 1 GM in IV 1 EA IV ONE (09:00)
[2020-01-23] MEDS ORDERED: POTASSIUM CHLORIDE 10 MEQ SR TABLET PO ONE (09:00)
[2020-01-23] MEDS: PANTOPRAZOLE 40MG VIAL (C9113 PER 1) IV SCH (09:10)
[2020-01-23] MEDS: QUEtiapine FUMARATE 12.5 MG HALF-TAB PO SCH ×2 (09:10→21:32)
[2020-01-23] MEDS: FERROUS SULFATE 300MG/5ML UDC LIQUID PO SCH (09:10)
[2020-01-23] MEDS: DOCUSATE SOD LIQ 100MG/10ML UDC GT SCH (09:10)
[2020-01-23] MEDS: CitaloPRAM (CeleXA) 20 MG TAB PO SCH (09:11)
[2020-01-23] MEDS: HumaLOG INSULIN (NovoLOG) PER UNIT SC SCH ×4 (09:11→21:00)
[2020-01-23] MEDS: TAMSULOSIN 0.4 MG CAP PO SCH (09:11)
[2020-01-23] MEDS: ASCORBIC ACID 500 MG TAB PO SCH (09:11)
[2020-01-23] MEDS: ENOXAPARIN 30MG/0.3ML SYRINGE (J1650 PER 10MG) SC SCH (09:12)
[2020-01-23] MEDS: VITAMIN D 1,000 INTERNATIONAL UNITS TABLET PO SCH (09:12)
--- NOTE | 2020-01-23 10:59 | IPNPDOC ---
Text Note Date of Service The patient was seen on 01/23/20. NOTE Subjective: Patient is a 84-year-old male with Severe dementia, history of recurrent falls, CAD / CABG, DM, HTN, COPD was brought into the ER due to rec urrent falls. Patient was found to have a UTI. Patient has been transitioned status and looking for long-term placement, Patient was seen and examined at the bedside. Patient was seen laying in bed, was awake and alert, does not appear to be in any pain. Objective: Vitals (See below) General: Lying in bed, does not appear to be in distress. Appears comfortable, oriented to person HEENT: NC, AT CVS: +S1S2 Lungs: Air entry fair b/l, no appreciable wheezing / rhonchi / rales Abdomen: Soft, no distention and remains nontender Extremities: LE are without edema, - Calf tenderness Assessment and plan: Leukocytosis - UTI / Possible pyelonephritis - possibly 2/2 obstruction - Afebrile and remains hemodynamically stable - Leukocytosis remains stable; CRP trending down - Cr has remained stable - UA 01/18 abnormal; Urine culture 01/18: Enterobacter aerogenes - CT chest 01/19: 1. There is moderate left-sided hydronephrosis. There is left perinephric stranding. The cause for this is not determined on this exam. Follow-up postcontrast CT scan is recommended. 2. There are nonobstructing left intrarenal calcifications. 3. Calcification within the abdominal aorta appears displaced from the aortic wall consistent with aortic dissection. Although this may be chronic, no prior studies are available for comparison. Follow-up postcontrast CT scan is recommended. 4. There is a moderate L1 compression fracture, age- indeterminate. - CT abdomen / pelvis 01/19: 1. There is urinary bladder wall thickening. This is nonspecific but can be seen in the setting of cystitis. 2. There is moderate left-sided hydronephrosis. There is left perinephric stranding. There is a 2 mm obstructing ureterovesical junction calculus. Underlying pyelonephritis cannot be excluded based on this noncontrast exam. 3. Calcification within the abdominal aorta appears displaced from the aortic wall consistent with aortic dissection. Although this may be chronic, no prior studies are available for comparison. Follow-up postcontrast CT scan is recommended. 4. There is a L1 compression fracture, age-indeterminate. - c/w Tamsulosin - c/w Ceftriaxone; s/p Cefdinir (Antibiotic day #5); s/p IV fluid hydration - Urology, Dr. Vogel on consultation; discussed with Dr. Kirk; currently not intervention given clinical improvement - will continue antibiotics Hypomagnesemia - Will supplement Hypokalemia - Will supplement Difficulty with swallowing / Dysphagia - possibly 2/2 dementia - Has been working with speech therapy - Will adjust diet based on their recommendations Pre-syncope - vasovagal - resolved Dementia with behavioral abnormalities - c/w Seroquel, Citalopram and Olanzapine - c/w Remeron s/p UTI - U. Cx : Aerococcus Urinary retention - Failed trial of voiding - c/w Chronic Chavez place - c/w Tamsulosin Falls - Dementia, gait imbalance - Will need intermediate manager placement NIDDM2 - c/w ISS HTN - Lisinopril and Amlodipine on hold DLP - c/w Atorvastatin GERD - c/w Protonix DVT prophylaxis - c/w Lovenox Disposition: - Will continue with current antibiotics - Speech therapy evaluation on Saturday VS,Fishbone, I+O VS, Fishbone, I+O Laboratory Tests 01/23/20 05:39 Vital Signs Date Time Temp Pulse Resp B/P (MAP) Pulse Ox O2 Delivery O2 Flow Rate FiO2 01/23/20 06:00 98.2 63 18 106/60 (75) 93 Room Air I&O- Last 24 Hours up to 6 AM 01/23/20 06:00 Intake Total 2370 ml Output Total 1470 ml Balance 900 ml DWAIN JUARES MD Jan 23, 2020 10:59
[2020-01-23] MEDS: cefTRIAXone SOD 1 GM in D5W MINI-BAG PLUS 50 ML IV SCH (11:44)
[2020-01-23 14:00] VITALS: BP 134/61
[2020-01-23] MEDS: OLANZapine 2.5MG TABLET PO SCH (21:32)
[2020-01-23] MEDS: ASPIRIN 81 MG CHEW TABLET PO SCH (21:32)
[2020-01-23] MEDS: ATORVASTATIN 20 MG TAB PO SCH (21:32)
[2020-01-23 22:00] VITALS: BP 134/66
[2020-01-24 06:00] VITALS: BP 142/71
[2020-01-24 06:32] LABS: HEMATOCRIT 38.5 % (42.0-52.0); HEMOGLOBIN 12.6 g/dl (13.5-17.5); MEAN CORPUSCULAR HEMOGLOBIN 29.6 pg (27.0-33.0); MEAN CORPUSCULAR HGB CONC 32.7 g/dl (32.0-36.5); MEAN CORPUSCULAR VOLUME 90.4 fl (80.0-96.0); PLATELET COUNT, AUTOMATED 299 10^3/uL (150-450); RED BLOOD COUNT 4.26 10^6/uL (4.30-6.10); WHITE BLOOD COUNT 11.9 10^3/uL (4.0-10.0)
[2020-01-24 07:04] LABS: BLOOD UREA NITROGEN 14 MG/DL (7-18); C REACTIVE PROTEIN QUANTITATIV 7.82 MG/DL (0.00-0.30); CALCIUM LEVEL 8.5 MG/DL (8.8-10.2); CARBON DIOXIDE LEVEL 28 MEQ/L (21-32); CHLORIDE LEVEL 111 MEQ/L (98-107); CREATININE FOR GFR 0.76 MG/DL (0.70-1.30); GLOMERULAR FILTRATION RATE > 60.0 (>35); GLUCOSE, FASTING 177 MG/DL (70-100); MAGNESIUM LEVEL 1.8 MG/DL (1.8-2.4); POTASSIUM SERUM 3.7 MEQ/L (3.5-5.1); SODIUM LEVEL 144 MEQ/L (136-145)
[2020-01-24] MEDS: HumaLOG INSULIN (NovoLOG) PER UNIT SC SCH ×4 (08:03→20:47)
[2020-01-24] MEDS: ENOXAPARIN 30MG/0.3ML SYRINGE (J1650 PER 10MG) SC SCH (08:03)
[2020-01-24] MEDS: FERROUS SULFATE 300MG/5ML UDC LIQUID PO SCH (08:04)
[2020-01-24] MEDS: TAMSULOSIN 0.4 MG CAP PO SCH (08:06)
[2020-01-24] MEDS: DOCUSATE SOD LIQ 100MG/10ML UDC GT SCH (08:06)
[2020-01-24] MEDS: PANTOPRAZOLE 40MG VIAL (C9113 PER 1) IV SCH (08:06)
[2020-01-24] MEDS: QUEtiapine FUMARATE 12.5 MG HALF-TAB PO SCH ×2 (08:06→20:49)
[2020-01-24] MEDS: VITAMIN D 1,000 INTERNATIONAL UNITS TABLET PO SCH (08:06)
[2020-01-24] MEDS: CitaloPRAM (CeleXA) 20 MG TAB PO SCH (08:06)
[2020-01-24] MEDS: ASCORBIC ACID 500 MG TAB PO SCH (08:06)
--- NOTE | 2020-01-24 09:45 | IPNPDOC ---
Text Note Date of Service The patient was seen on 01/24/20. NOTE Subjective: Patient is a 84-year-old male with Severe dementia, history of recurrent falls, CAD / CABG, DM, HTN, COPD was brought into the ER due to rec urrent falls. Patient was found to have a UTI. Patient has been transitioned status and looking for long-term placement, Patient was seen and examined at the bedside. Patient was lying in bed. Asleep, but wakes up on verbal stimuli. She reported his name reported that he was not in any pain, however was unable to answer any additional questions Objective: Vitals (See below) General: Laying in bed, awakes to verbal stimuli, oriented to person, appears comfortable HEENT: NC, AT CVS: +S1S2 Lungs: There appears to be fair air entry bilaterally without evidence of rhonch i, crackles or wheezing Abdomen: Nondistended, nontender and soft Extremities: No pitting edema, - Calf tenderness Assessment and plan: Leukocytosis - UTI / Possible pyelonephritis - possibly 2/2 obstruction - Afebrile and remains hemodynamically stable - Leukocytosis is improving; CRP continues to trend down - Cr has remained stable - UA 01/18 abnormal; Urine culture 01/18: Enterobacter aerogenes - CT chest 01/19: 1. There is moderate left-sided hydronephrosis. There is left perinephric stranding. The cause for this is not determined on this exam. Follow-up postcontrast CT scan is recommended. 2. There are nonobstructing left intrarenal calcifications. 3. Calcification within the abdominal aorta appears displaced from the aortic wall consistent with aortic dissection. Although this may be chronic, no prior studies are available for comparison. Follow-up postcontrast CT scan is recommended. 4. There is a moderate L1 compression fracture, age- indeterminate. - CT abdomen / pelvis 01/19: 1. There is urinary bladder wall thickening. This is nonspecific but can be seen in the setting of cystitis. 2. There is moderate left-sided hydronephrosis. There is left perinephric stranding. There is a 2 mm obstructing ureterovesical junction calculus. Underlying pyelonephritis cannot be excluded based on this noncontrast exam. 3. Calcification within the abdominal aorta appears displaced from the aortic wall consistent with aortic dissection. Although this may be chronic, no prior studies are available for comparison. Follow-up postcontrast CT scan is recommended. 4. There is a L1 compression fracture, age-indeterminate. - c/w Tamsulosin - c/w Ceftriaxone; s/p Cefdinir (Antibiotic day #6); s/p IV fluid hydration - Urology, Dr. Vogel on consultation; discussed with Dr. Kirk; currently not intervention given clinical improvement - will continue antibiotics s/p Hypomagnesemia s/p Hypokalemia Difficulty with swallowing / Dysphagia - possibly 2/2 dementia - Has been working with speech therapy - Adjusted diet based because of difficulty - Will have re-evaluation on Saturday Pre-syncope - vasovagal - resolved Dementia with behavioral abnormalities - c/w Seroquel, Citalopram and Olanzapine - c/w Remeron s/p UTI - U. 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
[2020-01-24] MEDS: cefTRIAXone SOD 1 GM in D5W MINI-BAG PLUS 50 ML IV SCH (11:29)
[2020-01-24 14:00] VITALS: BP 116/55
[2020-01-24] MEDS: ASPIRIN 81 MG CHEW TABLET PO SCH (20:48)
[2020-01-24] MEDS: OLANZapine 2.5MG TABLET PO SCH (20:48)
[2020-01-24] MEDS: ATORVASTATIN 20 MG TAB PO SCH (20:49)
[2020-01-24 22:00] VITALS: BP 100/57
[2020-01-25 06:00] VITALS: BP 112/52
[2020-01-25 06:31] LABS: HEMATOCRIT 42.5 % (42.0-52.0); MEAN CORPUSCULAR HEMOGLOBIN 29.9 pg (27.0-33.0); MEAN CORPUSCULAR HGB CONC 32.9 g/dl (32.0-36.5); MEAN CORPUSCULAR VOLUME 90.6 fl (80.0-96.0); PLATELET COUNT, AUTOMATED 327 10^3/uL (150-450); RED BLOOD COUNT 4.69 10^6/uL (4.30-6.10); WHITE BLOOD COUNT 15.1 10^3/uL (4.0-10.0)
[2020-01-25 06:43] LABS: BLOOD UREA NITROGEN 14 MG/DL (7-18); C REACTIVE PROTEIN QUANTITATIV 6.72 MG/DL (0.00-0.30); CALCIUM LEVEL 8.2 MG/DL (8.8-10.2); CARBON DIOXIDE LEVEL 25 MEQ/L (21-32); CHLORIDE LEVEL 114 MEQ/L (98-107); GLOMERULAR FILTRATION RATE > 60.0 (>35); GLUCOSE, FASTING 169 MG/DL (70-100); MAGNESIUM LEVEL 1.9 MG/DL (1.8-2.4); SODIUM LEVEL 146 MEQ/L (136-145)
[2020-01-25] MEDS: ENOXAPARIN 30MG/0.3ML SYRINGE (J1650 PER 10MG) SC SCH (07:58)
[2020-01-25] MEDS: TAMSULOSIN 0.4 MG CAP PO SCH (07:58)
[2020-01-25] MEDS: HumaLOG INSULIN (NovoLOG) PER UNIT SC SCH ×4 (07:58→21:34)
[2020-01-25] MEDS: QUEtiapine FUMARATE 12.5 MG HALF-TAB PO SCH ×2 (07:58→21:18)
[2020-01-25] MEDS: VITAMIN D 1,000 INTERNATIONAL UNITS TABLET PO SCH (07:58)
[2020-01-25] MEDS: CitaloPRAM (CeleXA) 20 MG TAB PO SCH (07:58)
[2020-01-25] MEDS: DOCUSATE SOD LIQ 100MG/10ML UDC GT SCH (07:59)
[2020-01-25] MEDS: FERROUS SULFATE 300MG/5ML UDC LIQUID PO SCH (07:59)
[2020-01-25] MEDS: PANTOPRAZOLE 40MG VIAL (C9113 PER 1) IV SCH (07:59)
[2020-01-25] MEDS: ASCORBIC ACID 500 MG TAB PO SCH (07:59)
[2020-01-25] MEDS: NS 1,000 ML IV SCH ×2 (07:59→21:19)
[2020-01-25] MEDS: cefTRIAXone SOD 1 GM in D5W MINI-BAG PLUS 50 ML IV SCH (09:57)
[2020-01-25] MEDS ORDERED: ISOVUE-370 76% 100ML VIAL As Ordered ONE (10:23)
--- NOTE | 2020-01-25 10:25 | IPNPDOC ---
Text Note Date of Service The patient was seen on 01/25/20. NOTE Subjective: Patient is a 84-year-old male with Severe dementia, history of recurrent falls, CAD / CABG, DM, HTN, COPD was brought into the ER due to rec urrent falls. Patient was found to have a UTI. Patient had been transitioned to ALC status and looking for long-term placement, however was transitioned to acute status on 01/19 for UTI/Pyelonephritis. Patient was seen and examined at the bedside. Patient was seen sitting up in bed, does not appear to be in any distress, awake, alert. Denies any pain. Objective: Vitals (See below) General: Sitting up in bed, appears to be comfortable, awake and alert HEENT: NC, AT CVS: +S1S2 Lungs: Poor inspiratory effort, difficult to appreciate any rhonchi, rales or wheezing Abdomen: Again abdomen soft without distention or tenderness Extremities: LE are without any pitting edema, - Calf tenderness Assessment and plan: Leukocytosis - UTI / Possible pyelonephritis - possibly 2/2 obstruction - Afebrile / Hemodynamically stable - Leukocytosis increased today; CRP continues to improve - Cr has remained stable - UA 01/18 abnormal; Urine culture 01/18: Enterobacter aerogenes - CT chest 01/19: 1. There is moderate left-sided hydronephrosis. There is left perinephric stranding. The cause for this is not determined on this exam. Follow-up postcontrast CT scan is recommended. 2. There are nonobstructing left intrarenal calcifications. 3. Calcification within the abdominal aorta appears displaced from the aortic wall consistent with aortic dissection. Although this may be chronic, no prior studies are available for comparison. Follow-up postcontrast CT scan is recommended. 4. There is a moderate L1 compression fracture, age- indeterminate. - CT abdomen / pelvis 01/19: 1. There is urinary bladder wall thickening. This is nonspecific but can be seen in the setting of cystitis. 2. There is moderate left-sided hydronephrosis. There is left perinephric stranding. There is a 2 mm obstructing ureterovesical junction calculus. Underlying pyelonephritis cannot be excluded based on this noncontrast exam. 3. Calcification within the abdominal aorta appears displaced from the aortic wall consistent with aortic dissection. Although this may be chronic, no prior studies are available for comparison. Follow-up postcontrast CT scan is recommended. 4. There is a L1 compression fracture, age-indeterminate. - c/w Tamsulosin - c/w Ceftriaxone; s/p Cefdinir (Antibiotic day #7) - Will resume IV fluid hydration - Urology, Dr. Vogel on consultation; discussed case; will get CT urogram / repeat UA today s/p Hypomagnesemia s/p Hypokalemia Difficulty with swallowing / Dysphagia - possibly 2/2 dementia - Has been working with speech therapy - Adjusted diet based because of difficulty - Re-evaluation today s/p Pre-syncope - likely 2/2 vasovagal Dementia with behavioral abnormalities - c/w Seroquel, Citalopram and Olanzapine - c/w Remeron Urinary retention - Failed trial of voiding - c/w Chronic Chavez place - c/w Tamsulosin Falls - Dementia, gait imbalance - Will need halfway placement NIDDM2 - c/w ISS HTN - Lisinopril and Amlodipine on hold DLP - c/w Atorvastatin GERD - c/w Protonix DVT prophylaxis - c/w Lovenox Disposition: - c/w current antibiotics - CT urogram / UA pending today - 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
--- NOTE | 2020-01-25 11:43 | REPVR ---
PROCEDURE INFORMATION: Exam: CT Abdomen And Pelvis Without And With Contrast; Urography Exam date and time: 01/25/2020 10:53 AM Age: 84 years old Clinical indication: Screening exam; Other: CT urogram / evaluate for hydronephrosis / L ureteral stone TECHNIQUE: Imaging protocol: Computed tomography of the abdomen and pelvis without and with intravenous contrast. Exam focused on the kidneys and ureters. Radiation optimization: All CT scans at this facility use at least one of these dose optimization techniques: automated exposure control; mA and/or kV adjustment per patient size (includes targeted exams where dose is matched to clinical indication); or iterative reconstruction. Contrast material: ISOVUE 370; Contrast volume: 100 ml; Contrast route: INTRAVENOUS (IV); COMPARISON: CT ABD PELVIS W/O CONTRAST 01/20/2020 1:19 PM FINDINGS: Pleural space: There appear to be trace bilateral effusions given artifact from the patient's arms. There is a small amount of atelectasis within the right base. Liver: The liver is heterogeneous possibly due to artifact from the patient's arms nonenlarged. Gallbladder and bile ducts: The in there is likely small gallstones and sludge within the gallbladder. Pancreas: Normal. No ductal dilation. Spleen: Normal. No splenomegaly. Adrenals: Normal. No mass. Kidneys and ureters: There is a stable inferior nonobstructing left renal stone. A peripheral stable left renal cyst 11 mm. There is no hydronephrosis. This confirmed on delayed images. There is a large parapelvic cyst measuring 62 x 32 mm. Numerous other cysts are noted throughout the kidney on the left measuring up to 25 x 24 mm. These appear to be simple cysts given extensive artifact from the patient's arms. The left ureter appears decompressed. Presence of the UPJ obstruction is a possibility. Stomach and bowel: There is moderate artifact from the patient's arms on his stomach. Scattered colonic diverticular noted. Intraperitoneal space: Unremarkable. No free air. No significant fluid collection. Lymph nodes: Unremarkable. No enlarged lymph nodes. Vasculature: Aorta with its calcifications appear stable. There is no evidence of a dissection. This appears to be chronic mural thrombus. Bladder: There is a Chavez catheter with air in the urinary bladder. There is a thickened urinary bladder wall. Reproductive: Unremarkable. Bones/joints: Arthritic changes noted within the spine. There is stable compression of L1. Soft tissues: Unremarkable. Other findings: There is stable sternal sutures. IMPRESSION: 1. Stable appearance of the kidneys. There is no hydronephrosis. The possible hydronephrosis previously is a large peripelvic cyst. 2. Other cysts are identified indeterminate due to streak artifact from the patient's arms. Recommendations cannot be made due to this artifact. 3. Small bilateral effusions. 4. Suspects small gallstones and possible sludge. Electronically signed by: Ruel Walker On 01/25/2020 11:43:04 AM
[2020-01-25] MEDS: ASPIRIN 81 MG CHEW TABLET PO SCH (21:18)
[2020-01-25] MEDS: ATORVASTATIN 20 MG TAB PO SCH (21:18)
[2020-01-25] MEDS: OLANZapine 2.5MG TABLET PO SCH (21:18)
[2020-01-25 22:00] VITALS: BP 119/68
[2020-01-26 05:57] LABS: HEMATOCRIT 41.6 % (42.0-52.0); HEMOGLOBIN 13.5 g/dl (13.5-17.5); MEAN CORPUSCULAR HEMOGLOBIN 29.8 pg (27.0-33.0); MEAN CORPUSCULAR HGB CONC 32.5 g/dl (32.0-36.5); MEAN CORPUSCULAR VOLUME 91.8 fl (80.0-96.0); PLATELET COUNT, AUTOMATED 338 10^3/uL (150-450); RED BLOOD COUNT 4.53 10^6/uL (4.30-6.10); WHITE BLOOD COUNT 13.4 10^3/uL (4.0-10.0)
[2020-01-26 06:00] VITALS: BP 122/67
[2020-01-26 06:23] LABS: BLOOD UREA NITROGEN 11 MG/DL (7-18); CALCIUM LEVEL 8.1 MG/DL (8.8-10.2); CARBON DIOXIDE LEVEL 27 MEQ/L (21-32); CHLORIDE LEVEL 114 MEQ/L (98-107); CREATININE FOR GFR 0.74 MG/DL (0.70-1.30); GLOMERULAR FILTRATION RATE > 60.0 (>35); GLUCOSE, FASTING 149 MG/DL (70-100); MAGNESIUM LEVEL 1.8 MG/DL (1.8-2.4); POTASSIUM SERUM 3.7 MEQ/L (3.5-5.1); SODIUM LEVEL 148 MEQ/L (136-145)
[2020-01-26] MEDS: HumaLOG INSULIN (NovoLOG) PER UNIT SC SCH ×5 (07:30→20:44)
[2020-01-26] MEDS ORDERED: D5W/0.45% SODIUM CHLORIDE 1,000 ML IV SCH (08:45)
[2020-01-26] MEDS ORDERED: FLUCONAZOLE 100 MG TAB PO SCH (09:00)
[2020-01-26] MEDS: QUEtiapine FUMARATE 12.5 MG HALF-TAB PO SCH ×2 (09:00→20:39)
--- NOTE | 2020-01-26 10:13 | IPNPDOC ---
Text Note Date of Service The patient was seen on 01/26/20. NOTE Subjective: Patient is a 84-year-old male with Severe dementia, history of recurrent falls, CAD / CABG, DM, HTN, COPD was brought into the ER due to rec urrent falls. Patient was found to have a UTI. Patient had been transitioned to ALC status and looking for long-term placement, however was transitioned to acute status on 01/19 for UTI/Pyelonephritis. Patient was seen and examined at the bedside. Patient appears to be more sleepy, does not appear to be in any distress. Objective: Vitals (See below) General: Laying in bed, appears comfortable, asleep but arousable to verbal/physical stimuli HEENT: NC, AT CVS: +S1S2 Lungs: Auscultation is without rhonchi, wheezing or crackles Abdomen: Abdomen remains soft without distention or tenderness Extremities: No edema of lower extremities, - Calf tenderness Assessment and plan: Leukocytosis - UTI / Possible pyelonephritis - possibly 2/2 obstruction - Afebrile / Hemodynamically stable - Leukocytosis increased today; CRP continues to improve - Cr has remained stable - UA 01/18 abnormal; Urine culture 01/18: Enterobacter aerogenes - UA 01/24 abnormal; Urine culture 01/24: Yeast like organisms - CT chest 01/19: 1. There is moderate left-sided hydronephrosis. There is left perinephric stranding. The cause for this is not determined on this exam. Follow-up postcontrast CT scan is recommended. 2. There are nonobstructing left intrarenal calcifications. 3. Calcification within the abdominal aorta appears displaced from the aortic wall consistent with aortic dissection. Although this may be chronic, no prior studies are available for comparison. Follow-up postcontrast CT scan is recommended. 4. There is a moderate L1 compression fracture, age- indeterminate. - CT abdomen / pelvis 01/19: 1. There is urinary bladder wall thickening. This is nonspecific but can be seen in the setting of cystitis. 2. There is moderate left-sided hydronephrosis. There is left perinephric stranding. There is a 2 mm obstructing ureterovesical junction calculus. Underlying pyelonephritis cannot be excluded based on this noncontrast exam. 3. Calcification within the abdominal aorta appears displaced from the aortic wall consistent with aortic dissection. Although this may be chronic, no prior studies are available for comparison. Follow-up postcontrast CT scan is recommended. 4. There is a L1 compression fracture, age-indeterminate. - CT urogram 01/24: 1. Stable appearance of the kidneys. There is no hydronephrosis. The possible hydronephrosis previously is a large peripelvic cyst. 2. Other cysts are identified indeterminate due to streak artifact from the patient's arms. Recommendations cannot be made due to this artifact. 3. Small bilateral effusions. 4. Suspects small gallstones and possible sludge. - c/w Tamsulosin - Will DC Ceftriaxone; s/p Cefdinir (Antibiotic day #8); Will start Diflucan - DC IV fluid hydration - Urology, Dr. 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
[2020-01-26] MEDS: PANTOPRAZOLE 40MG VIAL (C9113 PER 1) IV SCH (10:45)
[2020-01-26] MEDS: ENOXAPARIN 30MG/0.3ML SYRINGE (J1650 PER 10MG) SC SCH (10:46)
[2020-01-26 12:32] LABS: BLOOD UREA NITROGEN 11 MG/DL (7-18); CALCIUM LEVEL 8.8 MG/DL (8.8-10.2); CARBON DIOXIDE LEVEL 28 MEQ/L (21-32); CHLORIDE LEVEL 116 MEQ/L (98-107); CREATININE FOR GFR 0.77 MG/DL (0.70-1.30); GLOMERULAR FILTRATION RATE > 60.0 (>35); GLUCOSE, FASTING 191 MG/DL (70-100); POTASSIUM SERUM 4.3 MEQ/L (3.5-5.1); SODIUM LEVEL 148 MEQ/L (136-145)
--- NOTE | 2020-01-26 12:59 | ECGEPIP ---
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 AGE-HAD DIMINUTUVE R IN AVF ON PRIOR) LEFT AXIS DEVIATION POSSIBLE OLD SEPTAL IN WORSENING R WAVE PROGRESSION SINCE PRIOR COPD PATTERN Electronically Signed on 01-26-2020 12:59:20 EDT by Viky Trevino
[2020-01-26 14:00] VITALS: BP 156/66
[2020-01-26] MEDS: D5W 1,000 ML IV SCH (15:38)
[2020-01-26] MEDS: MOM 30ML SUSPENSION UDC PO PRN (17:59)
[2020-01-26] MEDS: FERROUS SULFATE 300MG/5ML UDC LIQUID PO SCH (17:59)
[2020-01-26] MEDS: MIRALAX *UNIT DOSE* 17GM PACKET PO PRN (17:59)
[2020-01-26] MEDS: ASCORBIC ACID 500 MG TAB PO SCH (18:00)
[2020-01-26] MEDS: TAMSULOSIN 0.4 MG CAP PO SCH (18:00)
[2020-01-26] MEDS: VITAMIN D 1,000 INTERNATIONAL UNITS TABLET PO SCH (18:00)
[2020-01-26] MEDS: CitaloPRAM (CeleXA) 20 MG TAB PO SCH (18:00)
[2020-01-26] MEDS: FLUCONAZOLE 200 MG in IV 1 EA IV SCH (18:40)
[2020-01-26] MEDS: OLANZapine 2.5MG TABLET PO SCH (20:38)
[2020-01-26] MEDS: ASPIRIN 81 MG CHEW TABLET PO SCH (20:38)
[2020-01-26] MEDS: ATORVASTATIN 20 MG TAB PO SCH (20:38)
[2020-01-26 22:00] VITALS: BP 159/77
[2020-01-27 06:00] VITALS: BP 154/74
[2020-01-27 07:03] LABS: HEMATOCRIT 40.6 % (42.0-52.0); HEMOGLOBIN 13.3 g/dl (13.5-17.5); MEAN CORPUSCULAR HEMOGLOBIN 29.9 pg (27.0-33.0); MEAN CORPUSCULAR HGB CONC 32.8 g/dl (32.0-36.5); MEAN CORPUSCULAR VOLUME 91.2 fl (80.0-96.0); PLATELET COUNT, AUTOMATED 339 10^3/uL (150-450); RED BLOOD COUNT 4.45 10^6/uL (4.30-6.10); WHITE BLOOD COUNT 13.5 10^3/uL (4.0-10.0)
[2020-01-27 07:26] LABS: BLOOD UREA NITROGEN 10 MG/DL (7-18); CALCIUM LEVEL 8.1 MG/DL (8.8-10.2); CARBON DIOXIDE LEVEL 25 MEQ/L (21-32); CHLORIDE LEVEL 114 MEQ/L (98-107); CREATININE FOR GFR 0.73 MG/DL (0.70-1.30); GLOMERULAR FILTRATION RATE > 60.0 (>35); GLUCOSE, FASTING 187 MG/DL (70-100); MAGNESIUM LEVEL 1.7 MG/DL (1.8-2.4); POTASSIUM SERUM 3.6 MEQ/L (3.5-5.1); SODIUM LEVEL 147 MEQ/L (136-145)
[2020-01-27] MEDS: ENOXAPARIN 30MG/0.3ML SYRINGE (J1650 PER 10MG) SC SCH (07:54)
[2020-01-27] MEDS: PANTOPRAZOLE 40MG VIAL (C9113 PER 1) IV SCH (07:54)
[2020-01-27] MEDS: HumaLOG INSULIN (NovoLOG) PER UNIT SC SCH ×4 (07:55→21:00)
[2020-01-27] MEDS: D5W 1,000 ML IV SCH ×2 (08:16→22:20)
[2020-01-27] MEDS ORDERED: MAG SULF 1GM/100ML (MAG RUN) 1 GM in IV 1 EA IV ONE (09:00)
[2020-01-27 09:21] LABS: C REACTIVE PROTEIN QUANTITATIV 4.69 MG/DL (0.00-0.30)
[2020-01-27] MEDS: VITAMIN D 1,000 INTERNATIONAL UNITS TABLET PO SCH (09:28)
[2020-01-27] MEDS: QUEtiapine FUMARATE 12.5 MG HALF-TAB PO SCH ×2 (09:28→22:20)
[2020-01-27] MEDS: FERROUS SULFATE 300MG/5ML UDC LIQUID PO SCH (09:28)
[2020-01-27] MEDS: ASCORBIC ACID 500 MG TAB PO SCH (09:28)
[2020-01-27] MEDS: CitaloPRAM (CeleXA) 20 MG TAB PO SCH (09:28)
[2020-01-27] MEDS: TAMSULOSIN 0.4 MG CAP PO SCH (09:28)
[2020-01-27] MEDS: MOM 30ML SUSPENSION UDC PO PRN (09:29)
[2020-01-27] MEDS: DOCUSATE SOD LIQ 100MG/10ML UDC PO SCH (09:29)
[2020-01-27] MEDS: MIRALAX *UNIT DOSE* 17GM PACKET PO PRN (09:29)
--- NOTE | 2020-01-27 10:42 | IPNPDOC ---
Text Note Date of Service The patient was seen on 01/27/20. NOTE Subjective: Patient is a 84-year-old male with Severe dementia, history of recurrent falls, CAD / CABG, DM, HTN, COPD was brought into the ER due to rec urrent falls. Patient was found to have a UTI. Patient had been transitioned to ALC status and looking for long-term placement, however was transitioned to acute status on 01/19 for UTI/Pyelonephritis. Patient was seen and examined at the bedside. Patient is drowsy this morning. Does not appear to be in any acute distress. Objective: Vitals (See below) General: Lying in bed, does not appear to be in any distress, asleep but arousable HEENT: NC, AT CVS: +S1S2 Lungs: Air entry is fair bilaterally without any auscultated rhonchi, wheezing or crackles Abdomen: Soft, nondistended, no appreciable tenderness Extremities: Lower extremities are free of any pitting edema, - Calf tenderness Assessment and plan: Leukocytosis - UTI / Possible pyelonephritis - less likely 2/2 obstruction - Afebrile / Hemodynamically stable - Leukocytosis continues marisa improve; CRP tending down - Cr has remained stable - UA 01/18 abnormal; Urine culture 01/18: Enterobacter aerogenes - UA 01/24 abnormal; Urine culture 01/24: Yeast like organisms - CT chest 01/19: 1. There is moderate left-sided hydronephrosis. There is left perinephric stranding. The cause for this is not determined on this exam. Follow-up postcontrast CT scan is recommended. 2. There are nonobstructing left intrarenal calcifications. 3. Calcification within the abdominal aorta appears displaced from the aortic wall consistent with aortic dissection. Although this may be chronic, no prior studies are available for comparison. Follow-up postcontrast CT scan is recommended. 4. There is a moderate L1 compression fracture, age- indeterminate. - CT abdomen / pelvis 01/19: 1. There is urinary bladder wall thickening. This is nonspecific but can be seen in the setting of cystitis. 2. There is moderate left-sided hydronephrosis. There is left perinephric stranding. There is a 2 mm obstructing ureterovesical junction calculus. Underlying pyelonephritis cannot be excluded based on this noncontrast exam. 3. Calcification within the abdominal aorta appears displaced from the aortic wall consistent with aortic dissection. Although this may be chronic, no prior studies are available for comparison. Follow-up postcontrast CT scan is recommended. 4. There is a L1 compression fracture, age-indeterminate. - CT urogram 01/24: 1. Stable appearance of the kidneys. There is no hydronephro sis. The possible hydronephrosis previously is a large peripelvic cyst. 2. Other cysts are identified indeterminate due to streak artifact from the patient's arms. Recommendations cannot be made due to this artifact. 3. Small bilateral effusions. 4. Suspects small gallstones and possible sludge. - c/w Tamsulosin - c/w Diflucan (Day #2 of 14); s/p Ceftriaxone; s/p Cefdinir (Antibiotic day #8); - Urology, Dr. Vogel on consultation Hypernatremia - likely 2/2 poor oral intake - c/w low rate of D5W Hypomagnesemia - Will supplement s/p Hypokalemia Difficulty with swallowing / Dysphagia - possibly 2/2 dementia - Has been working with speech therapy - Adjusted diet based because of difficulty s/p Pre-syncope - likely 2/2 vasovagal Dementia with behavioral abnormalities - c/w Seroquel, Citalopram and Olanzapine - c/w Remeron Urinary retention - Failed trial of voiding - c/w Chronic Chavez place - c/w Tamsulosin Falls - Dementia, gait imbalance - Will need long term acute care registered nurse placement NIDDM2 - c/w ISS HTN - Lisinopril and Amlodipine on hold DLP - c/w Atorvastatin GERD - c/w Protonix DVT prophylaxis - c/w Lovenox Disposition: - Needs long term acute care registered nurse placement - Possible DC within 24-48 hours VS,Fishbone, I+O VS, Fishbone, I+O Laboratory Tests 01/26/20 11:56 01/27/20 06:48 Vital Signs Date Time Temp Pulse Resp B/P (MAP) Pulse Ox O2 Delivery O2 Flow Rate FiO2 01/27/20 06:00 98.1 53 18 154/74 (100) 95 01/25/20 06:00 Room Air I&O- Last 24 Hours up to 6 AM 01/27/20 06:00 Intake Total 1340 ml Output Total 1200 ml Balance 140 ml JUARES,VIJESH MD Jan 27, 2020 10:42
[2020-01-27 14:00] VITALS: BP 130/57
[2020-01-27 15:41] LABS: BLOOD UREA NITROGEN 11 MG/DL (7-18); CALCIUM LEVEL 7.9 MG/DL (8.8-10.2); CARBON DIOXIDE LEVEL 27 MEQ/L (21-32); CHLORIDE LEVEL 112 MEQ/L (98-107); CREATININE FOR GFR 0.78 MG/DL (0.70-1.30); GLOMERULAR FILTRATION RATE > 60.0 (>35); GLUCOSE, FASTING 197 MG/DL (70-100); POTASSIUM SERUM 3.4 MEQ/L (3.5-5.1); SODIUM LEVEL 146 MEQ/L (136-145)
[2020-01-27] MEDS: FLUCONAZOLE 200 MG in IV 1 EA IV SCH (17:45)
[2020-01-27 22:00] VITALS: BP 168/82
[2020-01-27] MEDS: ASPIRIN 81 MG CHEW TABLET PO SCH (22:19)
[2020-01-27] MEDS: OLANZapine 2.5MG TABLET PO SCH (22:20)
[2020-01-27] MEDS: ATORVASTATIN 20 MG TAB PO SCH (22:20)
[2020-01-28 05:53] LABS: HEMATOCRIT 37.2 % (42.0-52.0); MEAN CORPUSCULAR HEMOGLOBIN 29.1 pg (27.0-33.0); MEAN CORPUSCULAR HGB CONC 32.3 g/dl (32.0-36.5); MEAN CORPUSCULAR VOLUME 90.1 fl (80.0-96.0); PLATELET COUNT, AUTOMATED 321 10^3/uL (150-450); RED BLOOD COUNT 4.13 10^6/uL (4.30-6.10); WHITE BLOOD COUNT 10.3 10^3/uL (4.0-10.0)
[2020-01-28 06:00] VITALS: BP 129/62
[2020-01-28 06:11] LABS: BLOOD UREA NITROGEN 9 MG/DL (7-18); CARBON DIOXIDE LEVEL 27 MEQ/L (21-32); CHLORIDE LEVEL 112 MEQ/L (98-107); CREATININE FOR GFR 0.76 MG/DL (0.70-1.30); GLOMERULAR FILTRATION RATE > 60.0 (>35); GLUCOSE, FASTING 230 MG/DL (70-100); MAGNESIUM LEVEL 1.9 MG/DL (1.8-2.4); POTASSIUM SERUM 3.3 MEQ/L (3.5-5.1); SODIUM LEVEL 145 MEQ/L (136-145)
[2020-01-28] MEDS ORDERED: FLUC200T2 PO (08:03)
[2020-01-28] MEDS ORDERED: QUET1TAB7 PO ×2 (08:03)
[2020-01-28] MEDS ORDERED: CELE20TA PO (08:03)
[2020-01-28] MEDS ORDERED: INSUHUMDS SC (08:03)
[2020-01-28] MEDS ORDERED: OLAN2.5T25 PO (08:03)
[2020-01-28] MEDS ORDERED: FLOM0.4C39 PO (08:03)
[2020-01-28] MEDS ORDERED: POTA20TA6 PO (08:07)
[2020-01-28 08:21] LABS: C REACTIVE PROTEIN QUANTITATIV 3.34 MG/DL (0.00-0.30)
[2020-01-28] MEDS: DOCUSATE SOD LIQ 100MG/10ML UDC PO SCH (09:00)
[2020-01-28] MEDS: FERROUS SULFATE 300MG/5ML UDC LIQUID PO SCH (09:00)
[2020-01-28] MEDS: ASCORBIC ACID 500 MG TAB PO SCH (09:00)
[2020-01-28] MEDS ORDERED: FLUCONAZOLE 50MG TABLET PO SCH (09:00)
[2020-01-28] MEDS ORDERED: POTASSIUM CHLORIDE 10 MEQ SR TABLET PO ONE (09:00)
[2020-01-28] MEDS: FLUCONAZOLE 100 MG TAB PO SCH (09:00)
[2020-01-28] MEDS: PANTOPRAZOLE 40MG TAB (PROTONIX) PO SCH (09:00)
[2020-01-28] MEDS: CitaloPRAM (CeleXA) 20 MG TAB PO SCH (09:00)
[2020-01-28] MEDS: ENOXAPARIN 30MG/0.3ML SYRINGE (J1650 PER 10MG) SC SCH (09:48)
[2020-01-28] MEDS: HumaLOG INSULIN (NovoLOG) PER UNIT SC SCH ×4 (09:49→21:00)
--- NOTE | 2020-01-28 09:51 | IPNPDOC ---
Text Note Date of Service The patient was seen on 01/28/20. NOTE Subjective: Patient is a 84-year-old male with Severe dementia, history of recurrent falls, CAD / CABG, DM, HTN, COPD was brought into the ER due to rec urrent falls. Patient was found to have a UTI. Patient had been transitioned to ALC status and looking for long-term placement, however was transitioned to acute status on 01/19 for UTI/Pyelonephritis. Patient was seen and examined at the bedside. Patient is awake and alert this morning. Reports his name. When asked if he knew where he was, he answered "hell no." and smiled. Patient denies any chest pain, abdominal pain. Has not experienced any events overnight. Objective: Vitals (See below) General: Sitting up in bed, does not appear to be in any distress, awake and alert, oriented to person HEENT: NC, AT CVS: +S1S2 Lungs: Air entry is fair bilaterally without evidence of rhonchi, wheezing or crackles Abdomen: Abdomen is soft without any appreciable tenderness or distention Extremities: No edema of lower extremities, - Calf tenderness Assessment and plan: Leukocytosis - UTI / Possible pyelonephritis - less likely 2/2 obstruction - Remains Afebrile / Hemodynamically stable - Leukocytosis is approaching normal; CRP continues to trend down - Cr has remained stable - UA 01/18 abnormal; Urine culture 01/18: Enterobacter aerogenes - UA 01/24 abnormal; Urine culture 01/24: Yeast like organisms - CT chest 01/19: 1. There is moderate left-sided hydronephrosis. There is left perinephric stranding. The cause for this is not determined on this exam. Follow-up postcontrast CT scan is recommended. 2. There are nonobstructing left intrarenal calcifications. 3. Calcification within the abdominal aorta appears displaced from the aortic wall consistent with aortic dissection. Although this may be chronic, no prior studies are available for comparison. Follow-up postcontrast CT scan is recommended. 4. There is a moderate L1 compression fracture, age- indeterminate. - CT abdomen / pelvis 01/19: 1. There is urinary bladder wall thickening. This is nonspecific but can be seen in the setting of cystitis. 2. There is moderate left-sided hydronephrosis. There is left perinephric stranding. There is a 2 mm obstructing ureterovesical junction calculus. Underlying pyelonephritis cannot be excluded based on this noncontrast exam. 3. Calcification within the abdominal aorta appears displaced from the aortic wall consistent with aortic dissection. Although this may be chronic, no prior studies are available for comparison. Follow-up postcontrast CT scan is recommended. 4. There is a L1 compression fracture, age-indeterminate. - CT urogram 01/24: 1. Stable appearance of the kidneys. There is no hydronephrosis. The possible hydronephrosis previously is a large peripelvic cyst. 2. Other cysts are identified indeterminate due to streak artifact from the patient's arms. Recommendations cannot be made due to this artifact. 3. Smal l bilateral effusions. 4. Suspects small gallstones and possible sludge. - c/w Tamsulosin - c/w Diflucan (Day #3 of 14); s/p Ceftriaxone; s/p Cefdinir (Antibiotic day #8); - Urology, Dr. Vogel on consultation s/p Hypernatremia - likely 2/2 poor oral intake - Will DC free water IV - Will encourage increased oral intake of fluids s/p Hypomagnesemia Hypokalemia - Will supplement via PO route Difficulty with swallowing / Dysphagia - possibly 2/2 dementia - Has been working with speech therapy - Adjusted diet based because of difficulty s/p Pre-syncope - likely 2/2 vasovagal Dementia with behavioral abnormalities - c/w Seroquel, Citalopram and Olanzapine - c/w Remeron Urinary retention - Failed trial of voiding - c/w Chronic Chavez place - c/w Tamsulosin Falls - Dementia, gait imbalance - Will need correction placement NIDDM2 - c/w ISS HTN - Lisinopril and Amlodipine on hold DLP - c/w Atorvastatin GERD - c/w Protonix DVT prophylaxis - c/w Lovenox Disposition: - Will transition patient back to ALC status - PFS working on placement likely within the next 48 hours VSClaudia, I+O VSlCaudia, I+O Laboratory Tests 01/27/20 12:17 01/28/20 05:37 Vital Signs Date Time Temp Pulse Resp B/P (MAP) Pulse Ox O2 Delivery O2 Flow Rate FiO2 01/28/20 06:00 98.4 57 20 129/62 (84) 93 Room Air I&O- Last 24 Hours up to 6 AM 01/28/20 06:00 Intake Total 18516 ml Output Total 1000 ml Balance 77793 ml DWAIN JUARES MD Jan 28, 2020 09:51
[2020-01-28] MEDS: TAMSULOSIN 0.4 MG CAP PO SCH (10:00)
[2020-01-28] MEDS: VITAMIN D 1,000 INTERNATIONAL UNITS TABLET PO SCH (10:00)
[2020-01-28] MEDS: QUEtiapine FUMARATE 12.5 MG HALF-TAB PO SCH ×2 (10:00→22:50)
[2020-01-28 22:00] VITALS: BP 135/65
[2020-01-28] MEDS: OLANZapine 2.5MG TABLET PO SCH (22:50)
[2020-01-28] MEDS: ASPIRIN 81 MG CHEW TABLET PO SCH (22:50)
[2020-01-28] MEDS: ATORVASTATIN 20 MG TAB PO SCH (22:51)
[2020-01-29 06:00] VITALS: BP 153/66
[2020-01-29] MEDS: HumaLOG INSULIN (NovoLOG) PER UNIT SC SCH ×4 (07:30→20:05)
[2020-01-29] MEDS: ASCORBIC ACID 500 MG TAB PO SCH (09:00)
[2020-01-29] MEDS: DOCUSATE SOD LIQ 100MG/10ML UDC PO SCH (09:00)
[2020-01-29] MEDS: PANTOPRAZOLE 40MG TAB (PROTONIX) PO SCH (09:00)
[2020-01-29] MEDS: ENOXAPARIN 30MG/0.3ML SYRINGE (J1650 PER 10MG) SC SCH (09:00)
[2020-01-29] MEDS: FLUCONAZOLE 100 MG TAB PO SCH (09:00)
[2020-01-29] MEDS: CitaloPRAM (CeleXA) 20 MG TAB PO SCH (09:00)
[2020-01-29] MEDS: VITAMIN D 1,000 INTERNATIONAL UNITS TABLET PO SCH (09:00)
[2020-01-29] MEDS: TAMSULOSIN 0.4 MG CAP PO SCH (09:00)
[2020-01-29] MEDS: FERROUS SULFATE 300MG/5ML UDC LIQUID PO SCH (09:00)
[2020-01-29] MEDS: QUEtiapine FUMARATE 12.5 MG HALF-TAB PO SCH ×2 (09:00→20:06)
[2020-01-29 14:00] VITALS: BP 159/74
[2020-01-29] MEDS: ATORVASTATIN 20 MG TAB PO SCH (20:05)
[2020-01-29] MEDS: ASPIRIN 81 MG CHEW TABLET PO SCH (20:06)
[2020-01-29] MEDS: OLANZapine 2.5MG TABLET PO SCH (20:06)
[2020-01-30 06:00] VITALS: BP 168/80
[2020-01-30 06:50] VITALS: BP 160/64
[2020-01-30] MEDS: ENOXAPARIN 30MG/0.3ML SYRINGE (J1650 PER 10MG) SC SCH (07:31)
[2020-01-30] MEDS: HumaLOG INSULIN (NovoLOG) PER UNIT SC SCH ×4 (07:31→20:55)
[2020-01-30] MEDS: VITAMIN D 1,000 INTERNATIONAL UNITS TABLET PO SCH (07:32)
[2020-01-30] MEDS: QUEtiapine FUMARATE 12.5 MG HALF-TAB PO SCH ×2 (07:32→21:04)
[2020-01-30] MEDS: CitaloPRAM (CeleXA) 20 MG TAB PO SCH (07:32)
[2020-01-30] MEDS: TAMSULOSIN 0.4 MG CAP PO SCH (07:32)
[2020-01-30] MEDS: PANTOPRAZOLE 40MG TAB (PROTONIX) PO SCH (07:32)
[2020-01-30] MEDS: FLUCONAZOLE 100 MG TAB PO SCH (07:32)
[2020-01-30] MEDS: ASCORBIC ACID 500 MG TAB PO SCH (07:32)
[2020-01-30] MEDS: FERROUS SULFATE 300MG/5ML UDC LIQUID PO SCH (08:53)
[2020-01-30] MEDS: DOCUSATE SOD LIQ 100MG/10ML UDC PO SCH (08:53)
[2020-01-30] MEDS ORDERED: QUEtiapine FUMARATE 12.5 MG HALF-TAB PO SCH ×2 (09:00→21:00)
[2020-01-30] MEDS ORDERED: BISACODYL 10 MG SUPP PR PRN (12:00)
[2020-01-30] MEDS: ASPIRIN 81 MG CHEW TABLET PO SCH (21:02)
[2020-01-30] MEDS: ATORVASTATIN 20 MG TAB PO SCH (21:02)
[2020-01-30] MEDS: OLANZapine 2.5MG TABLET PO SCH (21:02)
[2020-01-31 06:00] VITALS: BP 140/69
[2020-01-31] MEDS: SITagliptin 50 MG TAB (JANUVIA) PO SCH ×2 (08:00→18:07)
[2020-01-31] MEDS: HumaLOG INSULIN (NovoLOG) PER UNIT SC SCH (08:07)
[2020-01-31] MEDS: PANTOPRAZOLE 40MG TAB (PROTONIX) PO SCH (08:08)
[2020-01-31] MEDS: FLUCONAZOLE 100 MG TAB PO SCH (08:08)
[2020-01-31] MEDS: TAMSULOSIN 0.4 MG CAP PO SCH (08:08)
[2020-01-31] MEDS: ENOXAPARIN 30MG/0.3ML SYRINGE (J1650 PER 10MG) SC SCH (08:08)
[2020-01-31] MEDS: CitaloPRAM (CeleXA) 20 MG TAB PO SCH (08:08)
[2020-01-31] MEDS: QUEtiapine FUMARATE 12.5 MG HALF-TAB PO SCH ×2 (08:08→20:24)
--- NOTE | 2020-01-31 10:31 | IPNPDOC ---
Text Note Date of Service The patient was seen on 01/31/20. NOTE Subjective: Patient was seen and examined at the bedside. Patient is awake and alert this morning. Was agitated yesterday trying to pull cain however calm this morning. No events overnight. Objective: Vitals (See below) General: Sitting up in bed, does not appear to be in any distress, awake and alert, oriented to person HEENT: NC, AT, moist mucous membranes, anicteric eyes. CVS: +S1S2,normal, regular heart sounds, no murmur/ rub or gallop. Lungs: Air entry is fair bilaterally without evidence of rhonchi, wheezing or crackles Abdomen: Abdomen is soft without any appreciable tenderness or distention Extremities: No edema of lower extremities, - Calf tenderness Labs and radiology : reviewed. Imaging: - CT chest 01/19: 1. There is moderate left-sided hydronephrosis. There is left perinephric stranding. The cause for this is not determined on this exam. Follow-up postcontrast CT scan is recommended. 2. There are nonobstructing left intrarenal calcifications. 3. Calcification within the abdominal aorta appears displaced from the aortic wall consistent with aortic dissection. Although this may be chronic, no prior studies are available for comparison. Follow-up postcontrast CT scan is recommended. 4. There is a moderate L1 compression fracture, age-indeterminate. - CT abdomen / pelvis 01/19: 1. There is urinary bladder wall thickening. This is nonspecific but can be seen in the setting of cystitis. 2. There is moderate left-sided hydronephrosis. There is left perinephric stranding. There is a 2 mm obstructing ureterovesical junction calculus. Underlying pyelonephritis cannot be excluded based on this noncontrast exam. 3. Calcification within the abdominal aorta appears displaced from the aortic wall consistent with aortic dissection. Although this may be chronic, no prior studies are available for comparison. Follow-up postcontrast CT scan is recommended. 4. There is a L1 compression fracture, age-indeterminate. - CT urogram 01/24: 1. Stable appearance of the kidneys. There is no hydronephrosis. The possible hydronephrosis previously is a large peripelvic cyst. 2. Other cysts are identified indeterminate due to streak artifact from the patient's arms. Recommendations cannot be made due to this artifact. 3. Small bilateral effusions. 4. Suspects small gallstones and possible sludge. Assessment and plan:Patient is a 84-year-old male with Severe dementia, history of recurrent falls, CAD / CABG, DM, HTN, COPD was brought into the ER due to recurrent falls. Patient was found to have a UTI. Patient had been transitioned to ALC status and looking for long-term placement, however was transitioned to acute status on 01/19 for UTI/Pyelonephritis. Now back on ALC status from 01/28/20 Recurrent UTI / Possible pyelonephritis / catheter related. due to chronic indwelling cain 01/24 Urine culture yeast > [id number] continue fluconazole x 7 days. 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 Will stop Lispro start on Januvia 50. FS Breakfast and dinner. HTN getting uncontrolled will start on amlodipine DLP c/w Atorvastatin GERD c/w Protonix DVT prophylaxis c/w Lovenox Disposition: PFS working on placement likely within the next 48 hours VS,Claudia, I+O VS, Santiagobone, I+O Vital Signs Date Time Temp Pulse Resp B/P (MAP) Pulse Ox O2 Delivery O2 Flow Rate FiO2 01/31/20 06:00 98.3 63 18 140/69 (92) 94 Room Air I&O- Last 24 Hours up to 6 AM 01/31/20 06:00 Intake Total 120 ml Output Total 675 ml Balance -555 ml NAHEED PRUITT MD Jan 31, 2020 10:31
[2020-01-31] MEDS: amLODIPine 5 MG TAB PO SCH (11:11)
[2020-01-31] MEDS: ASPIRIN 81 MG CHEW TABLET PO SCH (20:23)
[2020-01-31] MEDS: OLANZapine 2.5MG TABLET PO SCH (20:24)
[2020-01-31] MEDS: ATORVASTATIN 20 MG TAB PO SCH (20:24)
[2020-02-01 06:00] VITALS: BP 154/78
[2020-02-01] MEDS: SITagliptin 50 MG TAB (JANUVIA) PO SCH (08:34)
[2020-02-01] MEDS: QUEtiapine FUMARATE 12.5 MG HALF-TAB PO SCH ×2 (08:34→18:00)
[2020-02-01] MEDS: CitaloPRAM (CeleXA) 20 MG TAB PO SCH (08:34)
[2020-02-01] MEDS: TAMSULOSIN 0.4 MG CAP PO SCH (08:34)
[2020-02-01] MEDS: amLODIPine 5 MG TAB PO SCH (08:34)
[2020-02-01] MEDS: PANTOPRAZOLE 40MG TAB (PROTONIX) PO SCH (08:35)
[2020-02-01] MEDS: FLUCONAZOLE 100 MG TAB PO SCH (08:35)
[2020-02-01] MEDS: ENOXAPARIN 30MG/0.3ML SYRINGE (J1650 PER 10MG) SC SCH (08:35)
[2020-02-01] MEDS: LEVEMIR (INSULIN DETEMIR) 1 UNITS/0.01ML SC SCH (08:35)
[2020-02-01 12:08] LABS: HEMATOCRIT 43.3 % (42.0-52.0); HEMOGLOBIN 14.1 g/dl (13.5-17.5); MEAN CORPUSCULAR HEMOGLOBIN 29.7 pg (27.0-33.0); MEAN CORPUSCULAR HGB CONC 32.6 g/dl (32.0-36.5); MEAN CORPUSCULAR VOLUME 91.4 fl (80.0-96.0); PLATELET COUNT, AUTOMATED 303 10^3/uL (150-450); RED BLOOD COUNT 4.74 10^6/uL (4.30-6.10); WHITE BLOOD COUNT 11.8 10^3/uL (4.0-10.0)
[2020-02-01 12:38] LABS: BLOOD UREA NITROGEN 9 MG/DL (7-18); CALCIUM LEVEL 8.4 MG/DL (8.8-10.2); CARBON DIOXIDE LEVEL 27 MEQ/L (21-32); CHLORIDE LEVEL 112 MEQ/L (98-107); CREATININE FOR GFR 0.84 MG/DL (0.70-1.30); GLOMERULAR FILTRATION RATE > 60.0 (>35); GLUCOSE, FASTING 176 MG/DL (70-100); POTASSIUM SERUM 4.1 MEQ/L (3.5-5.1); SODIUM LEVEL 146 MEQ/L (136-145)
[2020-02-01] MEDS: ATORVASTATIN 20 MG TAB PO SCH (17:59)
[2020-02-01] MEDS: ASPIRIN 81 MG CHEW TABLET PO SCH (18:00)
[2020-02-01] MEDS: OLANZapine 2.5MG TABLET PO SCH (18:00)
[2020-02-02 06:00] VITALS: BP 115/65
[2020-02-02] MEDS: TAMSULOSIN 0.4 MG CAP PO SCH (08:36)
[2020-02-02] MEDS: PANTOPRAZOLE 40MG TAB (PROTONIX) PO SCH (08:36)
[2020-02-02] MEDS: ATORVASTATIN 20 MG TAB PO SCH (08:36)
[2020-02-02] MEDS: CitaloPRAM (CeleXA) 20 MG TAB PO SCH (08:36)
[2020-02-02] MEDS: ASPIRIN 81 MG CHEW TABLET PO SCH (08:36)
[2020-02-02] MEDS: amLODIPine 5 MG TAB PO SCH (08:37)
[2020-02-02] MEDS: QUEtiapine FUMARATE 12.5 MG HALF-TAB PO SCH ×3 (08:37→20:19)
[2020-02-02] MEDS: FLUCONAZOLE 100 MG TAB PO SCH (08:37)
[2020-02-02] MEDS: LEVEMIR (INSULIN DETEMIR) 1 UNITS/0.01ML SC SCH (08:38)
[2020-02-02] MEDS: ENOXAPARIN 30MG/0.3ML SYRINGE (J1650 PER 10MG) SC SCH (08:39)
[2020-02-02] MEDS: SITagliptin 50 MG TAB (JANUVIA) PO SCH (08:45)
[2020-02-02] MEDS: OLANZapine 2.5MG TABLET PO SCH ×2 (18:00→20:20)
[2020-02-03] MEDS: IPRATROPIUM 0.5MG/ALBUTEROL 2.5MG INH SOL UD 3ML (DUONEB) NEB PRN (02:42)
[2020-02-03] MEDS: ACETAMINOPHEN TAB 650MG DOSE (2X325MG) PO PRN (05:28)
[2020-02-03 06:00] VITALS: BP 114/61
[2020-02-03] MEDS: SITagliptin 50 MG TAB (JANUVIA) PO SCH (08:22)
[2020-02-03] MEDS: CitaloPRAM (CeleXA) 20 MG TAB PO SCH (08:22)
[2020-02-03] MEDS: FLUCONAZOLE 100 MG TAB PO SCH (08:22)
[2020-02-03] MEDS: PANTOPRAZOLE 40MG TAB (PROTONIX) PO SCH (08:22)
[2020-02-03] MEDS: QUEtiapine FUMARATE 12.5 MG HALF-TAB PO SCH ×2 (08:22→18:22)
[2020-02-03] MEDS: TAMSULOSIN 0.4 MG CAP PO SCH (08:22)
[2020-02-03] MEDS: ASPIRIN 81 MG CHEW TABLET PO SCH (08:22)
[2020-02-03] MEDS: ATORVASTATIN 20 MG TAB PO SCH (08:22)
[2020-02-03] MEDS: ENOXAPARIN 30MG/0.3ML SYRINGE (J1650 PER 10MG) SC SCH (08:23)
[2020-02-03] MEDS: LEVEMIR (INSULIN DETEMIR) 1 UNITS/0.01ML SC SCH (08:23)
[2020-02-03] MEDS: amLODIPine 5 MG TAB PO SCH (08:23)
[2020-02-03] MEDS: OLANZapine 2.5MG TABLET PO SCH (18:22)
[2020-02-04 06:00] VITALS: BP 132/60
[2020-02-04] MEDS: ATORVASTATIN 20 MG TAB PO SCH (09:35)
[2020-02-04] MEDS: FLUCONAZOLE 100 MG TAB PO SCH (09:36)
[2020-02-04] MEDS: CitaloPRAM (CeleXA) 20 MG TAB PO SCH (09:36)
[2020-02-04] MEDS: SITagliptin 50 MG TAB (JANUVIA) PO SCH (09:36)
[2020-02-04] MEDS: PANTOPRAZOLE 40MG TAB (PROTONIX) PO SCH (09:38)
[2020-02-04] MEDS: QUEtiapine FUMARATE 12.5 MG HALF-TAB PO SCH ×2 (09:38→17:46)
[2020-02-04] MEDS: ASPIRIN 81 MG CHEW TABLET PO SCH (09:38)
[2020-02-04] MEDS: amLODIPine 5 MG TAB PO SCH (09:39)
[2020-02-04] MEDS: TAMSULOSIN 0.4 MG CAP PO SCH (09:39)
[2020-02-04] MEDS: ENOXAPARIN 30MG/0.3ML SYRINGE (J1650 PER 10MG) SC SCH (09:39)
[2020-02-04] MEDS: LEVEMIR (INSULIN DETEMIR) 1 UNITS/0.01ML SC SCH (09:40)
[2020-02-04 12:37] LABS: HEMATOCRIT 39.8 % (42.0-52.0); HEMOGLOBIN 12.9 g/dl (13.5-17.5); MEAN CORPUSCULAR HEMOGLOBIN 29.5 pg (27.0-33.0); MEAN CORPUSCULAR HGB CONC 32.4 g/dl (32.0-36.5); MEAN CORPUSCULAR VOLUME 90.9 fl (80.0-96.0); PLATELET COUNT, AUTOMATED 284 10^3/uL (150-450); RED BLOOD COUNT 4.38 10^6/uL (4.30-6.10); WHITE BLOOD COUNT 14.9 10^3/uL (4.0-10.0)
[2020-02-04 13:06] LABS: BLOOD UREA NITROGEN 18 MG/DL (7-18); CALCIUM LEVEL 8.6 MG/DL (8.8-10.2); CARBON DIOXIDE LEVEL 28 MEQ/L (21-32); CHLORIDE LEVEL 111 MEQ/L (98-107); CREATININE FOR GFR 0.98 MG/DL (0.70-1.30); GLOMERULAR FILTRATION RATE > 60.0 (>35); GLUCOSE, FASTING 321 MG/DL (70-100); POTASSIUM SERUM 3.5 MEQ/L (3.5-5.1); SODIUM LEVEL 146 MEQ/L (136-145)
[2020-02-04] MEDS: OLANZapine 2.5MG TABLET PO SCH (17:46)
[2020-02-05 06:00] VITALS: BP 133/62
[2020-02-05] MEDS: SITagliptin 50 MG TAB (JANUVIA) PO SCH (08:00)
[2020-02-05] MEDS: FLUCONAZOLE 100 MG TAB PO SCH (08:47)
[2020-02-05] MEDS: TAMSULOSIN 0.4 MG CAP PO SCH (08:49)
[2020-02-05] MEDS: QUEtiapine FUMARATE 12.5 MG HALF-TAB PO SCH (08:51)
[2020-02-05] MEDS: ATORVASTATIN 20 MG TAB PO SCH (08:52)
[2020-02-05] MEDS: PANTOPRAZOLE 40MG TAB (PROTONIX) PO SCH (08:53)
[2020-02-05] MEDS: ASPIRIN 81 MG CHEW TABLET PO SCH (08:54)
[2020-02-05] MEDS: ENOXAPARIN 30MG/0.3ML SYRINGE (J1650 PER 10MG) SC SCH (08:56)
[2020-02-05] MEDS: CitaloPRAM (CeleXA) 20 MG TAB PO SCH (08:56)
[2020-02-05] MEDS: LEVEMIR (INSULIN DETEMIR) 1 UNITS/0.01ML SC SCH (08:57)
[2020-02-05 09:01] VITALS: BP 120/62
[2020-02-05] MEDS: amLODIPine 5 MG TAB PO SCH (09:01)
[2020-02-05 10:40] LABS: BASO # 0.1 10^3/uL (0.0-0.2); BASO % 0.6 % (0.0-1.0); EOS # 0.3 10^3/uL (0.0-0.5); EOS % 2.4 % (0.0-3.0); HEMATOCRIT 40.3 % (42.0-52.0); HEMOGLOBIN 12.6 g/dl (13.5-17.5); LYMPH # 1.9 10^3/uL (1.5-5.0); LYMPH % 17.8 % (24.0-44.0); MEAN CORPUSCULAR HEMOGLOBIN 28.7 pg (27.0-33.0); MEAN CORPUSCULAR HGB CONC 31.3 g/dl (32.0-36.5); MEAN CORPUSCULAR VOLUME 91.8 fl (80.0-96.0); NEUTROPHILS # 7.6 10^3/uL (1.5-8.5); NEUTROPHILS % 69.6 % (36.0-66.0); PLATELET COUNT, AUTOMATED 271 10^3/uL (150-450); RED BLOOD COUNT 4.39 10^6/uL (4.30-6.10); WHITE BLOOD COUNT 10.9 10^3/uL (4.0-10.0)
--- NOTE | 2020-02-05 11:35 | DS.PDOC ---
Discharge Summary General Date of Admission Dec 03, 2019 at 01:18 Date of Discharge 02/05/2020 Discharge Summary PROCEDURES PERFORMED DURING STAY: [None]. ADMITTING DIAGNOSES: 1. Recurrent falls DISCHARGE DIAGNOSES: 1. Pyelonephritis COMPLICATIONS/CHIEF COMPLAINT: Dementia, Multiple Falls. HISTORY OF PRESENT ILLNESS: HPI from admitting H&P: Patient is 84 year old male with severe dementia, history of recurrent falls, CAD, DM, HTN, COPD was brought into the ER due to recurrent falls with concern for home safety by family, reportedly also poor diabetes control. Patient himself is not aware of why he is here and does not say much, smile and oriented to his name only. Reports no to any complaints including any discomfort or having any problems. Unable to obtain any history of patient, all from previous records. HOSPITAL COURSE: Patient is a 84-year-old male with Severe dementia, history of recurrent falls, CAD / CABG, DM, HTN, COPD was brought into the ER due to recurrent falls. Patient was found to have a UTI. Patient had been transitioned to ALC status and looking for long-term placement, however was transitioned to acute status on 01/19 for UTI/Pyelonephritis. Now back on ALC status from 01/28/20 patient was discharged on 02/05/2020 for long-term placement. Recurrent UTI / Possible pyelonephritis / catheter related. due to chronic indwelling cain 01/24 Urine culture yeast > [id number] continue fluconazole x 7 days. Started on 01/30/20 will discharge with 2 more days of oral fluconazole. 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 Will stop Lispro start on Januvia 50. FS Breakfast and dinner. HTN getting uncontrolled will start on amlodipine DLP c/w Atorvastatin GERD c/w Protonix DISCHARGE MEDICATIONS: Please see below. ALLERGIES: Please see below. PHYSICAL EXAMINATION ON DISCHARGE: VITAL SIGNS: Please see below. General: Sitting up in bed in no acute distress appears comfortable HEENT: No scleral icterus mucous membranes are moist CVS: RRR S1 and S2 are normal, no murmur Lungs: Lungs CTA bilaterally. No respiratory distress. No use of accessory muscles. Abdomen: Abdomen is soft, non distended, non tender, BS present. Extremities: No edema of lower extremities, - Calf tenderness LABORATORY DATA: Please see below. IMAGING: - CT chest 01/19: 1. There is moderate left-sided hydronephrosis. There is left perinephric stranding. The cause for this is not determined on this exam. Follow-up postcontrast CT scan is recommended. 2. There are nonobstructing left intrarenal calcifications. 3. Calcification within the abdominal aorta appears displaced from the aortic wall consistent with aortic dissection. Although this may be chronic, no prior studies are available for comparison. Follow-up postcontrast CT scan is recommended. 4. There is a moderate L1 compression fracture, age- indeterminate. - CT abdomen / pelvis 01/19: 1. There is urinary bladder wall thickening. This is nonspecific but can be seen in the setting of cystitis. 2. There is moderate left-sided hydronephrosis. There is left perinephric stranding. There is a 2 mm obstructing ureterovesical junction calculus. Underlying pyelonephritis cannot be excluded based on this noncontrast exam. 3. Calcification within the abdominal aorta appears displaced from the aortic wall consistent with aortic dissection. Although this may be chronic, no prior studies are available for comparison. Follow-up postcontrast CT scan is recommended. 4. There is a L1 compression fracture, age-indeterminate. - CT urogram 01/24: 1. Stable appearance of the kidneys. There is no hydronephrosis. The possible hydronephrosis previously is a large peripelvic cyst. 2. Other cysts are identified indeterminate due to streak artifact from the patient's arms. Recommendations cannot be made due to this artifact. 3. Small bilateral effusions. 4. Suspects small gallstones and possible sludge. PROGNOSIS: Fair ACTIVITY: [As tolerated]. DIET: Pured diet with ensure for supplementation DISCHARGE PLAN: Long-term placement DISCHARGE INSTRUCTIONS: Please follow up with your primary care physician within 1 week from discharge. If you do not have one, please follow up with us to schedule an appointment. Please keep all of your follow up appointments. Please call central to book your appointments with hospital specialists. Please take all your medications as prescribed. Please call/come to Clinic or go to the Emergency Department if - Temp >101, intractable Nausea/Vomiting, Diarrhea, Mouth sores, Headaches, Altered mental status, Seizures, sudden onset of swelling, bleeding, shortness of breath or chest pain. ITEMS TO FOLLOWUP ON ON OUTPATIENT: Complete your course of fluconazole Follow-up with primary care doctor within 2-5 days of discharge DISCHARGE CONDITION: [Stable]. TIME SPENT ON DISCHARGE: 45 minutes. Vital Signs/I&Os Vital Signs Date Time Temp Pulse Resp B/P (MAP) Pulse Ox O2 Delivery O2 Flow Rate FiO2 02/05/20 09:01 71 120/62 02/05/20 06:00 98.4 20 97 Room Air I&O- Last 24 Hours up to 6 AM 02/05/20 06:00 Intake Total 1380 ml Output Total 975 ml Balance 405 ml Laboratory Data Labs 24H Laboratory Tests 2 02/04/20 12:25: Nucleated Red Blood Cells % (auto) 0.0, Anion Gap 7L, Glomerular Filtration Rate > 60.0, Calcium Level 8.6L 02/04/20 17:02: Bedside Glucose (Misc Panel) 304H 02/05/20 05:54: Bedside Glucose (Misc Panel) 135H 02/05/20 08:05: Coronavirus (COVID-19)(PCR) NEGATIVE 02/05/20 10:22: Immature Granulocyte % (Auto) 0.6, Neutrophils (%) (Auto) 69.6H, Lymphocytes (%) (Auto) 17.8L, Monocytes (%) (Auto) 9.0H, Eosinophils (%) (Auto) 2.4, Basophils (%) (Auto) 0.6, Neutrophils # (Auto) 7.6, Lymphocytes # (Auto) 1.9, Monocytes # (Auto) 1.0H, Eosinophils # (Auto) 0.3, Basophils # (Auto) 0.1, Nucleated Red Blood Cells % (auto) 0.0 CBC/BMP Laboratory Tests 02/04/20 12:25 02/05/20 10:22 FSBS Laboratory Tests Test 02/04/20 17:02 02/05/20 05:54 Range/Units Bedside Glucose (Misc Panel) 304 135 83-110 MG/DL Discharge Medications Scheduled Ascorbic Acid (Ascorbic Acid) 500 Mg Tab, 500 MG PO DAILY, (Reported) Aspirin (Aspirin EC) 325 Mg Tablet.dr, 325 MG PO QHS, (Reported) Atorvastatin Calcium (Atorvastatin Calcium) 40 Mg Tab, 40 MG PO QHS, (Reported) Cholecalciferol (Vitamin D3) (Vitamin D3) 1,000 Unit Tablet, 1,000 UNITS PO DAILY, (Reported) Citalopram Hydrobromide (Celexa) 20 Mg Tablet, 20 MG PO DAILY Ferrous Sulfate (Ferrous Sulfate) 325 Mg Tablet, 325 MG PO DAILY, (Reported) Fluconazole (Fluconazole) 200 Mg Tablet, 1 TAB PO DAILY for yeast infection Insulin Human Lispro (Humalog) 100 Unit/1 Ml Vial, 0 UNITS SC ACHS Based on sliding scale from [facility] Olanzapine (Olanzapine) 2.5 Mg Tablet, 2.5 MG PO QHS Pantoprazole Sodium (Protonix) 40 Mg Tablet.dr, 40 MG PO BID, (Reported) Potassium Chloride (Potassium Chloride) 20 Meq Tab.er.prt, 1 TAB PO DAILY Quetiapine Fumarate (Quetiapine Fumarate) 25 Mg Tablet, 12.5 MG PO QAM Quetiapine Fumarate (Quetiapine Fumarate) 25 Mg Tablet, 12.5 MG PO QHS Tamsulosin HCl (Flomax) 0.4 Mg Capsule, 0.4 MG PO DAILY Scheduled PRN Acetaminophen (Acetaminophen) 325 Mg Tab, 325 MG PO Q4H PRN for PAIN, (Reported) Docusate Sodium (Docusate Sodium) 100 Mg Cap, 100 MG PO DAILY PRN for CONSTIPATION, (Reported) Allergies Coded Allergies: No Known Allergies (Unverified , 11/22/14) TAI REYES MD Feb 05, 2020 11:34
[2020-02-05] MEDS ORDERED: FLUC200T2 PO (11:36)
[2020-02-05] MEDS ORDERED: INSUDET SC (12:17)
== END 2020-02-05 13:36 | DRG 884 ==
LOC: M ED 19:19 → M ED INP 12-03 01:18 → M MSPAV 12-03 09:15
PROVIDERS: ADMIT Student in an Organized Health Care Education/Training Program; ATTEND Family Medicine
DX: F03.91 Unspecified dementia, unspecified severity, with behavioral disturbance (principal); E87.0 Hyperosmolality and hypernatremia; N39.0 Urinary tract infection, site not specified; M96.89 Other intraoperative and postprocedural complications and disorders of the musculoskeletal system; T83.511A Infection and inflammatory reaction due to indwelling urethral catheter, initial encounter; R29.6 Repeated falls; I25.10 Atherosclerotic heart disease of native coronary artery without angina pectoris; E11.9 Type 2 diabetes mellitus without complications; I10 Essential (primary) hypertension; J44.9 Chronic obstructive pulmonary disease, unspecified; Z66 Do not resuscitate; Z95.1 Presence of aortocoronary bypass graft; Z98.49 Cataract extraction status, unspecified eye; Z79.82 Long term (current) use of aspirin; Z79.4 Long term (current) use of insulin; Z79.899 Other long term (current) drug therapy; R33.9 Retention of urine, unspecified; R13.10 Dysphagia, unspecified; E83.42 Hypomagnesemia; E87.6 Hypokalemia; E78.5 Hyperlipidemia, unspecified; K21.9 Gastro-esophageal reflux disease without esophagitis; Y84.6 Urinary catheterization as the cause of abnormal reaction of the patient, or of later complication, without mention of misadventure at the time of the procedure

== ENCOUNTER → 2020-02-06 | Outpatient (REF) ==
[~2020-02-06] MED LIST changes: +ASPI325T47 PO; +ASPI81CH33 PO; +BISA10SU27 PR; +CELE20TA PO; +CITA10TA5 PO; +FERR1TAB8 PO; +FLEEENE12 PR; +FLOM0.4C39 PO; +FLUC200T2 PO; +INSUDET SC; +INSUHUMDS SC; +JUVEPOW4 PO; +K-TA10TA PO; +MOM30SS PO; +OLAN2.5T25 PO; +POTA20TA6 PO; +QUET1TAB7 PO; +REME15TA PO; +TRES100I SC; +VITMTA PO
[2020-02-06 21:31] LABS: HEMATOCRIT 39.6 % (42.0-52.0); HEMOGLOBIN 12.4 g/dl (13.5-17.5); MEAN CORPUSCULAR HEMOGLOBIN 28.7 pg (27.0-33.0); MEAN CORPUSCULAR HGB CONC 31.3 g/dl (32.0-36.5); MEAN CORPUSCULAR VOLUME 91.7 fl (80.0-96.0); PLATELET COUNT, AUTOMATED 259 10^3/uL (150-450); RED BLOOD COUNT 4.32 10^6/uL (4.30-6.10); WHITE BLOOD COUNT 12.5 10^3/uL (4.0-10.0)
[2020-02-06 21:40] LABS: BLOOD UREA NITROGEN 27 MG/DL (7-18); CALCIUM LEVEL 8.7 MG/DL (8.8-10.2); CARBON DIOXIDE LEVEL 31 MEQ/L (21-32); CHLORIDE LEVEL 107 MEQ/L (98-107); CREATININE FOR GFR 0.97 MG/DL (0.70-1.30); GLOMERULAR FILTRATION RATE > 60.0 (>35); GLUCOSE, FASTING 201 MG/DL (70-100); POTASSIUM SERUM 3.7 MEQ/L (3.5-5.1); SODIUM LEVEL 142 MEQ/L (136-145)
[2020-02-06 22:48] LABS: APPEARANCE, URINE CLOUDY (CLEAR); BACTERIA, URINE AUTO 2+ (NEGATIVE); BILIRUBIN, URINE AUTO NEGATIVE (NEGATIVE); BLOOD, URINE BLOOD 2+ (NEGATIVE); COLOR, URINE YELLOW (YELLOW); GLUCOSE, URINE (UA) AUTO 3+ mg/dL (NEGATIVE); KETONE, URINE AUTO NEGATIVE (NEGATIVE); LEUKOCYTE ESTERASE, URINE AUTO 3+ (NEGATIVE); MUCUS, URINE SMALL (NEGATIVE); NITRITE, URINE AUTO POSITIVE (NEGATIVE); PROTEIN, URINE AUTO 1+ mg/dL (NEGATIVE); RBC, URINE AUTO 34 /HPF (0-3); SPECIFIC GRAVITY URINE AUTO 1.013 (1.002-1.035); SQUAMOUS EPITHELIAL CELL UR AU 0 /HPF (0-6); WBC, URINE AUTO 135 /HPF (0-3)
== END ==
LOC: SKLAB5 21:04
PROVIDERS: ATTEND Internal Medicine
DX: Z91.81 History of falling (principal)

== ENCOUNTER → 2020-02-06 | Outpatient (REF) | payer MEDICARE | LOC: SKLAB5 17:30 | PROVIDERS: ATTEND Nurse Practitioner Acute Care | DX: Z91.81 History of falling (principal) ==

== ENCOUNTER → 2020-02-18 | Outpatient (REF) ==
[2020-02-18 09:07] LABS: HEMATOCRIT 52.6 % (42.0-52.0); MEAN CORPUSCULAR HEMOGLOBIN 28.6 pg (27.0-33.0); MEAN CORPUSCULAR HGB CONC 30.4 g/dl (32.0-36.5); MEAN CORPUSCULAR VOLUME 93.9 fl (80.0-96.0); PLATELET COUNT, AUTOMATED 291 10^3/uL (150-450); WHITE BLOOD COUNT 17.4 10^3/uL (4.0-10.0)
[2020-02-18 09:59] LABS: CALCIUM LEVEL 9.7 MG/DL (8.8-10.2); CREATININE FOR GFR 3.13 MG/DL (0.70-1.30); GLOMERULAR FILTRATION RATE 20.4 (>35); POTASSIUM SERUM 4.4 MEQ/L (3.5-5.1)
--- NOTE | 2020-02-18 10:28 | REP ---
INDICATION: HYPOXIA. COMPARISON: CT 01/20/2020, AP portable chest 01/19/2020, 01/02/2020. TECHNIQUE: AP portable erect chest FINDINGS: Sternotomy wires are again seen. There is no pleural effusion or lateral pleural thickening. Hyperinflation from COPD with some basilar fibrotic changes. I do not see consolidation on the right. There is patchy atelectasis or early infiltrate in the left base just above the diaphragm. Some underlying diffuse interstitial fibrotic changes are again noted. No gross cardiomegaly, vascular redistribution or edema. The aorta is mildly tortuous but without aneurysm. Sternotomy wires again seen. Some degenerative spurs in the spine. Shoulder and AC joints show degenerative changes as well. IMPRESSION: Some patchy basilar infiltrate just above the diaphragm on the left, new from the prior CT on 01/20/2020. The right lung without infiltrates. Underlying COPD and fibrosis with otherwise stable appearance. No pulmonary edema or pleural effusion. Sternotomy wires and degenerative changes in the spine. <Electronically signed by Chapo Vickers > 02/18/20 1024
[2020-02-18 10:37] LABS: HEMOGLOBIN A1c 8.7 %
[2020-02-18 12:47] LABS: APPEARANCE, URINE TURBID (CLEAR); BACTERIA, URINE AUTO 3+ (NEGATIVE); BILIRUBIN, URINE AUTO NEGATIVE (NEGATIVE); BLOOD, URINE BLOOD 2+ (NEGATIVE); COLOR, URINE YELLOW (YELLOW); GLUCOSE, URINE (UA) AUTO 2+ mg/dL (NEGATIVE); KETONE, URINE AUTO TRACE mg/dL (NEGATIVE); LEUKOCYTE ESTERASE, URINE AUTO 2+ (NEGATIVE); MUCUS, URINE LARGE (NEGATIVE); NITRITE, URINE AUTO NEGATIVE (NEGATIVE); PROTEIN, URINE AUTO 2+ mg/dL (NEGATIVE); RBC, URINE AUTO 41 /HPF (0-3); SPECIFIC GRAVITY URINE AUTO 1.018 (1.002-1.035); SQUAMOUS EPITHELIAL CELL UR AU 3 /HPF (0-6); WBC, URINE AUTO TNTC /HPF (0-3)
[2020-02-18 14:22] LABS: CALCIUM LEVEL 9.3 MG/DL (8.8-10.2); CREATININE FOR GFR 3.28 MG/DL (0.70-1.30); GLOMERULAR FILTRATION RATE 19.3 (>35); POTASSIUM SERUM 3.7 MEQ/L (3.5-5.1)
--- NOTE | 2020-02-22 07:40 | IPN ---
DATE: 02/20/2020 SUBJECTIVE: The patient was seen and examined at the bedside today morning in the ICU. The patient remains obtunded. His eyes are closed, minimally responsive. His IV fluids were changed to IV D5W with 20 mEq of KCL. He is making good amount of urine. Hyponatremia is improving. Creatinine is also stable and getting better. However neurologically he is not making much progress. OBJECTIVE: VITAL SIGNS: Temperature is 99 degrees Fahrenheit, blood pressure 142/72, pulse of 70, respiratory rate of 22, saturating 97% on nasal cannula at 3 liters. Intake and Output urine output recorded as 1.3 liters yesterday and when I saw him, he had made 750 mL of urine in the morning. Weight on the bed scale is 62.1 kg. PHYSICAL EXAMINATION: GENERAL APPEARANCE: The patient is laying in bed, eyes are closed, minimally responsive, getting IV fluids. HEAD AND NECK: Mucous membranes are dry. Neck he has bitemporal wasting, sunken eyes. Chronically emaciated. Neck is supple. There is no jugular venous distention. CARDIOVASCULAR: S1, S2, regular rate. EXTREMITIES: No edema of the bilateral lower extremities. RESPIRATORY: Chest is clear to auscultation bilaterally. Bilaterally currently no rales or rhonchi. ABDOMEN: Soft, scaphoid, positive bowel sounds, nontender, no organomegaly. GENITOURINARY: He has an indwelling Chavez catheter. MUSCULOSKELETAL: No clubbing, no cyanosis. Pulses are 2+. C&S: The patient is obtunded, does not follow commands. Eyes are closed. He moves on painful stimuli. LAB REVIEW: CBC showed a WBC of 15.4, hemoglobin is 12.6, platelets are 156. BMP today showed sodium 155, potassium 3.4, chloride 126, bicarbonate 23, BUN 66, creatinine is 1.5. MICROBIOLOGY: Blood cultures - one out of two is growing gram positive cocci in clusters. CURRENT INPATIENT MEDICATIONS: The patient's medications were all reviewed by myself. I changed his IV fluid last night to D5W with 20 mEq of KCL at 150 mL an hour. He continues to be on Azithromycin and Cefepime along with Vancomycin. I started him on insulin Levemir 10 units subcutaneously q. h.s. because of IV fluid hydration with D5. ASSESSMENT AND PLAN: * Acute renal failure it is secondary to dehydration and volume depletion. The patients renal function is gradually improving. He is making good amount of urine. Continue IV fluid hydration. * Hypernatremia it is secondary to the patient's inability to take any oral fluids or diet. The patient was extremely dehydrated when he came in. He is getting IV D5W. He has more than 3 liters of free water deficit. Continue D5W at 150 mL an hour. * Hypokalemia - The patient is getting KCL in the IV fluids and I have ordered separate KCL 10 mEq IV x2 runs. * Gram positive cocci bacteremia - The patient is already on Vancomycin, Cefepime and Azithromycin which adequately covers for gram positive and gram negative infection. * Metabolic encephalopathy it is multifactorial secondary to multiple electrolyte abnormalities including hypokalemia, hypernatremia and acute renal failure along with sepsis and bacteremia. Continue IV fluid hydration and IV antibiotics at this time. * Protein calorie malnutrition - The patient is unable to eat or drink anything. His family refused to have any tube feeds, and as per patient's wishes as well in the past, he does not want any feeding tubes or life support. * Diabetes mellitus type 2 - The patient was very hyperglycemic when he came in. He is getting D5W because of hypernatremia. He has been started on Levemir and he is getting insulin sliding scale coverage q. 6 hourly. Total critical care time spent in the management of this patient today morning in the ICU was 35 minutes excluding all the procedures. MTDD
== END ==
LOC: SKLAB5 08:17
PROVIDERS: ATTEND Internal Medicine
DX: E11.9 Type 2 diabetes mellitus without complications (principal)